=== PATIENT | female | born 1985 | race Caucasian/White ===

== ENCOUNTER 2022-09-24 09:00 | Observation (INO) | payer BC, SELFPAY ==
--- NOTE | 2022-09-24 | ECG_ITS ---
Test Reason : chest pain Blood Pressure : / mmHG Vent. Rate : 079 BPM Atrial Rate : 079 BPM P-R Int : 158 ms QRS Dur : 094 ms QT Int : 400 ms P-R-T Axes : 034 066 001 degrees QTc Int : 458 ms Normal sinus rhythm Nonspecific ST-T changes Abnormal ECG No previous ECGs available Referred By: Neville Kate Electronically Signed By:Marlon Brownlee
[2022-09-24 09:08] VITALS: BP 166/73; PULSE 92; RESP 20; TEMP 36.6; O2SAT 96; BMI 56.3
[2022-09-24 09:33] LABS: MANUAL DIFF FLAG NO
[2022-09-24 09:34] LABS: Basophils Absolute Auto 0.1 X10*3/uL (0.0-0.2); Basophils Percent Auto 0.7 % (0-2); Eosinophils Absolute Auto 0.2 X10*3/uL (0.0-0.4); Eosinophils Percent Auto 1.4 % (0-4); Hematocrit 41.3 % (37.0-47.0); Hemoglobin 13.6 g/dl (12.0-16.0); Imm Gran Abs Auto 0.08 X10*3/uL (0.00-0.03); Imm Gran Pct Auto 0.7 % (0.0-0.4); Lymphocytes Absolute Auto 1.4 X10*3/uL (1.2-4.9); Lymphocytes Percent Auto 12.2 % (20-40); Mean Corpuscular HGB Conc 32.9 g/dl (31.0-35.0); Mean Corpuscular Hemoglobin 28.8 pg (27.0-33.0); Mean Corpuscular Volume 87.5 fL (80.0-98.0); Mean Platelet Volume 10.9 fL (9.4-12.3); Monocytes Absolute Auto 0.9 X10*3/uL (0.1-1.2); Monocytes Percent Auto 7.7 % (2-11); Neutrophils Absolute Auto 8.9 x10*3/uL (2.0-8.3); Neutrophils Percent Auto 77.3 % (45-73); Platelet Count 233 X10*3/uL (160-400); Red Blood Count 4.72 X10*6/uL (4.20-5.50); Red Cell Distribution Width 13.4 % (11.0-16.0); White Blood Count 11.4 X10*3/uL (4.8-10.8)
--- NOTE | 2022-09-24 09:40 | ED_ITS ---
HPI - Nausea/Vomiting/Diarrhea General Chief complaint: Nausea/Vomiting/Diarrhea Stated complaint: Vomiting Time Seen by Provider: 09/24/22 09:16 Source: patient and family Mode of arrival: ambulatory Limitations: no limitations History of Present Illness HPI Narrative: 37-year-old female came in for evaluation of intractable vomiting. Intractable vomiting started 2 days ago, mild epigastric tenderness only with vomiting, no fever, chills, no diarrhea, vomit was described as bile with no blood, no bloody bowel movement. No dysuria, no frequency urination, no hematuria. Patient had a history of intractable vomiting seen by GI at [facility] had a normal gastric emptying test, patient also was treated for cholelithiasis with laparoscopic cholecystectomy 2 months ago at [facility]. Patient is still getting episode of vomiting for days, nothing trigger her symptoms nothing relief it either. Record was obtained from [facility] patient had a CT on 09/05/2022 of the abdomen and pelvis with no acute intra-abdominal pathology hepatic steatosis was noticed on the CT. Related Data Home Medications Medication Instructions Recorded Confirmed amlodipine 10 mg tablet 10 mg PO DAILY 09/24/22 09/24/22 escitalopram oxalate 10 mg tablet 15 mg PO BEDTIME 09/24/22 09/24/22 hydrochlorothiazide 50 mg tablet 50 mg PO DAILY 09/24/22 09/24/22 hydroxyzine HCl 25 mg tablet 25 mg PO BEDTIME 09/24/22 09/24/22 levothyroxine 150 mcg tablet 150 mcg PO DAILY@0600 09/24/22 09/24/22 lisinopril 40 mg tablet 40 mg PO DAILY 09/24/22 09/24/22 ondansetron 4 mg disintegrating 4 mg PO Q8H PRN nausea/vomiting 09/24/22 09/24/22 tablet pantoprazole 40 mg tablet,delayed 40 mg PO DAILY@0630 PRN Acid Reflux 09/24/22 09/24/22 release prochlorperazine 25 mg rectal 25 mg NV Q12H PRN Constipation 09/24/22 09/24/22 suppository (Compro) Allergies Allergy/AdvReac Type Severity Reaction Status Date / Time No Known Allergies Allergy Verified 09/24/22 09:16 Review of Systems Review of Systems: All other systems are reviewed and are negative Constitutional: Reports as per HPI and Reports no additional constitutional complaints Eyes: Reports as per HPI and Reports no additional eye complaints Reports system reviewed and no additional complaints, except as documented Cardiovascular: Reports as per HPI and Reports no additional cardiovascular complaints Respiratory: Reports as per HPI and Reports no additional respiratory complaints Gastrointestinal: Reports as per HPI and Reports no additional gastrointestinal complaints Genitourinary: Reports no additional female genitourinary complaints Musculoskeletal: Reports no additional musculoskeletal complaints Skin/Breast: Reports system reviewed and no additional complaints, except as docu Psychiatric: Reports no additional psychiatric complaints Endocrine: Reports no additional endocrine complaints Hematologic/Lymphatic: Reports no additional hematologic/lymphatic complaints Allergic/Immunologic: Reports no additional allergic/immunologic complaints Reports system reviewed and no additional complaints, except as documented and Reports Abnormal speech present [facility] Social History Social History Alcohol intake: current Alcohol intake frequency: holidays/special occasions only Smoked in Last 30 Days: No Use of substances other than those prescribed or required for medical reasons: No Advance Directives: No Advance Directives Information Provided: Yes Patient : No Physical Exam Vital Signs: Vital Signs: Last Vital Signs Temp 98.4 F 09/24/22 12:23 Pulse 95 09/24/22 12:23 Resp 12 09/24/22 12:23 BP 131/48 L 09/24/22 12:23 Pulse Ox 93 09/24/22 12:23 O2 Del Method Room Air 09/24/22 12:23 BMI result Body Mass Index 56.3 Vital signs have been reviewed as appeared to be correct. Blood pressure normal. Heart rate normal. Respiration rate normal. Temperature normal. Oxygen saturation normal. Appearance: Alert. Oriented X3. No acute distress. Head: Normal external exam. Normocephalic. Atraumatic. No Antunez signs noted. No raccoon eyes noted Eyes: PERRLA. EOMI. Conjunctiva and sclera normal. Eyelids normal. ENT: TM's Normal. Pharynx normal. Uvula midline. Moist mucous membranes. No trismus noted. No drooling noted. No muffled voice noted. Neck: Normal inspection. Neck supple. FROM. No adenopathy. Thyroid Normal. No meningeal signs. No neck mass noted. CVS: Normal heart rate and rhythm. Heart sound normal. No murmurs noted. Pulses normal throughout. Respiratory: No respiratory distress. Painless inspiration. Breath sounds normal. No wheezes/rales/rhonchi noted. Chest nontender. No accessory muscle usage noted or decreased air movement noted. Abdomen: Soft, mild epigastric tenderness, no guarding, no rebound tenderness.. Bowel sounds normal in all 4 quadrants. No distention noted. No organomegaly noted. No visible injury noted. Back: No CVA tenderness. Full range of motion noted. Skin: Skin warm and dry. Normal skin color. Normal skin turgor. No rashes/lesions/lacerations noted. Extremities: No lower extremity edema. Extremities exhibit normal range of motion. Extremities nontender. Neuro: Oriented X 3. Cranial nerve exam: II-XII are grossly intact No motor deficit. No sensory deficit. Reflexes normal. Course Course Course Narrative: Intractable vomiting, no history of marijuana use, questionable carlos cyclic vomiting syndrome, patient had a prior GI workup for her symptoms with no clear etiology of her symptoms. Patient is still vomiting will admit for further control of her symptoms. Medications Administered Discontinued Medications Generic Name Dose Route Start Last Admin Trade Name Bernardq PRN Reason Stop Dose Admin Al Hydroxide/Mg Hydroxide 30 ml 09/24/22 09:39 09/24/22 10:05 Magnesium Hydrox/Alum Hydrox 30 Ml Oral.Susp PO 09/24/22 09:40 30 ml ONCE ONE Administration Famotidine 20 mg 09/24/22 09:39 09/24/22 10:05 Famotidine/Pf 20 Mg/2 Ml Vial IVPUSH 09/24/22 09:40 20 mg ONCE ONE Administration Sodium Chloride 1,000 mls @ 999 mls/hr 09/24/22 09:40 09/24/22 11:02 Ns IV 09/24/22 10:40 Infused .Q1H1M ONE Infusion Lorazepam 1 mg 09/24/22 09:39 09/24/22 10:05 Lorazepam 2 Mg/Ml Vial IVPUSH 09/24/22 09:40 1 mg ONCE ONE Administration Lorazepam 2 mg 09/24/22 11:54 09/24/22 12:07 Lorazepam 2 Mg/Ml Vial IVPUSH 09/24/22 11:55 2 mg ONCE ONE Administration Metoclopramide HCl 10 mg 09/24/22 10:20 09/24/22 11:02 Metoclopramide Hcl 10 Mg/2 Ml Vial IVPUSH 09/24/22 10:21 10 mg ONCE ONE Administration Ondansetron HCl 4 mg 09/24/22 09:39 09/24/22 10:05 Ondansetron Hcl 4 Mg/2 Ml Vial IVPUSH 09/24/22 09:40 4 mg ONCE ONE Administration Ondansetron HCl 4 mg 09/24/22 11:30 09/24/22 12:07 Ondansetron Hcl 4 Mg/2 Ml Vial IVPUSH 09/24/22 11:31 4 mg ONCE ONE Administration Medical Decision Making Differential Diagnosis Differential Diagnoses: The differential diagnosis associated with the presentation includes (Cyclic vomiting syndrome, gastritis, dehydration, electrolyte abnormality, severe anemia, UTI, .) Admission/Observation Consideration of admission/observation: Escalation of care including admission/observation considered Consult Healthcare Provider Management of the patient was discussed with: Hospitalist (Dr. Richardson) Lab Data MDM Lab Attestation statement: I reviewed the patient's lab results. 09/24/22 09:30 09/24/22 09:30 Labs: Lab Results 09/24/22 09/24/22 09/24/22 Range/Units 09:30 09:30 10:07 WBC 11.4 H (4.8-10.8) X10*3/uL RBC 4.72 (4.20-5.50) X10*6/uL Hgb 13.6 (12.0-16.0) g/dl Hct 41.3 (37.0-47.0) % MCV 87.5 (80.0-98.0) fL MCH 28.8 (27.0-33.0) pg MCHC 32.9 (31.0-35.0) g/dl RDW 13.4 (11.0-16.0) % Plt Count 233 (160-400) X10*3/uL MPV 10.9 (9.4-12.3) fL Immature Gran % (Auto) 0.7 H (0.0-0.4) % Neut % (Auto) 77.3 H (45-73) % Lymph % (Auto) 12.2 L (20-40) % [place] % (Auto) 7.7 (2-11) % Eos % (Auto) 1.4 (0-4) % Baso % (Auto) 0.7 (0-2) % Lymph # (Auto) 1.4 (1.2-4.9) X10*3/uL [place] # (Auto) 0.9 (0.1-1.2) X10*3/uL Eos # (Auto) 0.2 (0.0-0.4) X10*3/uL Baso # (Auto) 0.1 (0.0-0.2) X10*3/uL Abs Immat Gran (auto) 0.08 H (0.00-0.03) X10*3/uL Absolute Neuts (auto) 8.9 H (2.0-8.3) x10*3/uL Absolute Nucleated RBC 0.000 (0.0-0.012) X10*3/uL Nucleated RBC % (auto) 0.0 (0.0-0.2) /100WBC Sodium 136 (135-145) mmol/L Potassium 3.7 (3.3-5.1) mmol/L Chloride 100 (96-108) mmol/L Carbon Dioxide 25 (22-29) mmol/L Anion Gap 15 (12-20) BUN 10 (9-16) mg/dL Creatinine 0.83 (0.5-1.4) mg/dL Estim Creat Clear Calc 151.5 Estimated GFR > 60 Random Glucose 128 H (60-115) mg/dL Calcium 10.2 (8.4-10.2) mg/dL Total Bilirubin 0.6 (0.0-1.0) mg/dL AST 130 H (5-31) U/L ALT 207 H (0-31) U/L Alkaline Phosphatase 104 (39-117) U/L Total Protein 8.4 H (6.5-8.0) g/dL Albumin 4.6 (3.5-5.0) g/dL Lipase 8 (8-78) U/L Urine Color Dark Yellow Urine Appearance Clear Urine pH 7.0 (5.0-9.0) Ur Specific [place] 1.025 (1.005-1.025) Urine Protein 30 (1+) H (Neg-Trace) mg/dL Urine Glucose (UA) Negative (Negative) mg/dL Urine Ketones Trace (Negative) mg/dL Urine Blood Negative (Negative) Urine Nitrite Negative (Negative) Ur Leukocyte Esterase Negative (Negative) Urine RBC 3-5 H (0-2) /HPF Urine WBC 0-5 (0-5) /HPF Ur Squamous Epith Cells 6-10 (0-2) /HPF Urine Bacteria Trace (None Seen) Hyaline Casts 0-2 (0-2) /LPF Urine Test (NEGATIVE) 09/24/22 Range/Units 10:07 WBC (4.8-10.8) X10*3/uL RBC (4.20-5.50) X10*6/uL Hgb (12.0-16.0) g/dl Hct (37.0-47.0) % MCV (80.0-98.0) fL MCH (27.0-33.0) pg MCHC (31.0-35.0) g/dl RDW (11.0-16.0) % Plt Count (160-400) X10*3/uL MPV (9.4-12.3) fL Immature Gran % (Auto) (0.0-0.4) % Neut % (Auto) (45-73) % Lymph % (Auto) (20-40) % [place] % (Auto) (2-11) % Eos % (Auto) (0-4) % Baso % (Auto) (0-2) % Lymph # (Auto) (1.2-4.9) X10*3/uL [place] # (Auto) (0.1-1.2) X10*3/uL Eos # (Auto) (0.0-0.4) X10*3/uL Baso # (Auto) (0.0-0.2) X10*3/uL Abs Immat Gran (auto) (0.00-0.03) X10*3/uL Absolute Neuts (auto) (2.0-8.3) x10*3/uL Absolute Nucleated RBC (0.0-0.012) X10*3/uL Nucleated RBC % (auto) (0.0-0.2) /100WBC Sodium (135-145) mmol/L Potassium (3.3-5.1) mmol/L Chloride (96-108) mmol/L Carbon Dioxide (22-29) mmol/L Anion Gap (12-20) BUN (9-16) mg/dL Creatinine (0.5-1.4) mg/dL Estim Creat Clear Calc Estimated GFR Random Glucose (60-115) mg/dL Calcium (8.4-10.2) mg/dL Total Bilirubin (0.0-1.0) mg/dL AST (5-31) U/L ALT (0-31) U/L Alkaline Phosphatase (39-117) U/L Total Protein (6.5-8.0) g/dL Albumin (3.5-5.0) g/dL Lipase (8-78) U/L Urine Color Urine Appearance Urine pH (5.0-9.0) Ur Specific [place] (1.005-1.025) Urine Protein (Neg-Trace) mg/dL Urine Glucose (UA) (Negative) mg/dL Urine Ketones (Negative) mg/dL Urine Blood (Negative) Urine Nitrite (Negative) Ur Leukocyte Esterase (Negative) Urine RBC (0-2) /HPF Urine WBC (0-5) /HPF Ur Squamous Epith Cells (0-2) /HPF Urine Bacteria (None Seen) Hyaline Casts (0-2) /LPF Urine Test NEGATIVE (NEGATIVE) Discharge Plan Discharge Clinical Impression: Intractable vomiting Patient Disposition: Home, Self-Care Prescriptions: No Action hydrochlorothiazide 50 mg tablet 50 mg PO DAILY prochlorperazine [Compro] 25 mg suppository 25 mg NV Q12H PRN (Reason: Constipation) amlodipine 10 mg tablet 10 mg PO DAILY pantoprazole 40 mg tablet,delayed release (DR/EC) 40 mg PO DAILY@0630 PRN (Reason: Acid Reflux) levothyroxine 150 mcg tablet 150 mcg PO DAILY@0600 hydroxyzine HCl 25 mg tablet 25 mg PO BEDTIME lisinopril 40 mg tablet 40 mg PO DAILY ondansetron 4 mg tablet,disintegrating 4 mg PO Q8H PRN (Reason: nausea/vomiting) escitalopram oxalate 10 mg tablet 15 mg PO BEDTIME
[2022-09-24 09:51] LABS: Alanine Aminotransferase 207 U/L (0-31); Albumin Level 4.6 g/dL (3.5-5.0); Alkaline Phosphatase 104 U/L (39-117); Anion Gap 15 (12-20); Aspartate Amino Transferase 130 U/L (5-31); Bilirubin Total 0.6 mg/dL (0.0-1.0); Blood Urea Nitrogen 10 mg/dL (9-16); Calcium 10.2 mg/dL (8.4-10.2); Carbon Dioxide 25 mmol/L (22-29); Chloride 100 mmol/L (96-108); Creatinine Clr Calc Pharmacy 151.5; Estimated Glomerular Filt Rate > 60; Glucose Random 128 mg/dL (60-115); Lipase 8 U/L (8-78); Potassium 3.7 mmol/L (3.3-5.1); Sodium 136 mmol/L (135-145); Total Protein 8.4 g/dL (6.5-8.0)
[2022-09-24] MEDS: 0.9 % Sodium Chloride 1,000 ML 999 ML IV (10:00)
[2022-09-24] MEDS: ondansetron HCL 4 MG/2 ML VIAL IVPUSH ×3 (10:05→17:12)
[2022-09-24] MEDS: Famotidine/PF 20 MG/2 ML VIAL IVPUSH (10:05)
[2022-09-24] MEDS: Magnesium Hydrox/Alum Hydrox 30 ML ORAL.SUSP PO (10:05)
[2022-09-24] MEDS: LORazepam 2 MG/ML VIAL 1 MG IVPUSH (10:05)
[2022-09-24 10:18] LABS: Appearance Urine Clear; Color Urine Dark Yellow; Glucose Urine UA Negative (Negative); Leukocyte Esterase Urine Negative (Negative); Nitrite Urine Negative (Negative); Specific Gravity - Urine 1.025 (1.005-1.025); UMIC TRIGGER UACC YES; Urine Blood Negative (Negative); Urine Ketones Trace mg/dL (Negative); Urine Protein 30 (1+) mg/dL (Neg-Trace)
[2022-09-24 10:20] LABS: Bacteria Urine Trace (None Seen); Hyaline Casts Urine 0-2 /LPF (0-2); WBC Urine 0-5 /HPF (0-5)
[2022-09-24 10:56] LABS: UPreg QC Valid YES; Urine Pregnancy NEGATIVE (NEGATIVE)
[2022-09-24] MEDS: Metoclopramide HCl 10 MG/2 ML VIAL IVPUSH (11:02)
[2022-09-24] MEDS: LORazepam 2 MG/ML VIAL IVPUSH (12:07)
[2022-09-24 12:23] VITALS: BP 131/48; PULSE 95; RESP 12; TEMP 36.9; O2SAT 93
--- NOTE | 2022-09-24 12:53 | PHA.MEDREC ---
Pharmacy Consult ? Medication Reconciliation Pharmacy has completed the medication reconciliation. Spoke to patient to confirm meds.
--- NOTE | 2022-09-24 14:01 | PM.IMHP ---
History of Present Illness Date of Service: 09/24/22 Attending physician on admission: Pilar Borges Chief Complaint: n/v 37-year-old female with history of hypothyroidism, hypertension, anxiety, ovarian cyst who is morbidly obese with BMI greater than 56 presents to the ED earlier this morning for evaluation of intractable nausea and vomiting ongoing for 2 days. She states that she has had these symptoms intermittently ongoing for the last 6 months. She has had multiple hospitalizations and ultimately underwent cholecystectomy given presence of gallstones though her symptoms continue to recur following the procedure. She denies any known triggers and has been keeping a food diary. Describes vomit as bilious and she is unable to tolerate p.o. when symptoms are active. She was admitted at [facility] last month where she underwent HIDA scan, endoscopy, and gastric emptying study all of which were unremarkable. She also had CT of the abdomen/pelvis which was negative for any acute intra abdominal abnormality but did show hepatic steatosis. 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 Desouza and symptoms remain with unclear etiology. In the ED, vital stable. She is afebrile. There is a mild leukocytosis of 11.4. Renal function and electrolyte levels normal. Total bilirubin 0.6, AST 130, ALT 207, alk phos 104. She does not use any illicit substances and does not use any marijuana containing products. She does not drink alcohol and does not smoke cigarettes. While in the ED, received a total of 3 mg lorazepam, Reglan, and ondansetron x2. She also received Maalox and 1 L IV NS. Unfortunately, symptoms persisted patient will be admitted under observation. Review of Systems Review of Systems: General: No fevers, malaise, unintentional weight loss HEENT: No blurred vision, diplopia. No sore throat, nasal congestion, rhinorrhea, sinus pain, ear pain Cardiovascular: No chest pain, palpitations, or leg edema Respiratory: No shortness of breath, wheezing, cough GI: +epigastric pain, n/v. No diarrhea, constipation, melena, hematochezia : No dysuria, hematuria, increased urinary frequency, decreased urinary output MSK: No myalgia, back pain Neuro: No headaches, weakness, paresthesias Skin: No rashes or lesions PMFSH Medical History Anxiety GERD (gastroesophageal reflux disease) Hepatic steatosis Hypertension Hypothyroidism Morbid obesity Ovarian cyst Social History Alcohol intake: current Alcohol intake frequency: holidays/special occasions only Patient Tobacco Use Status: Never used Tobacco service: No Meds Allergies Allergy/AdvReac Type Severity Reaction Status Date / Time No Known Allergies Allergy Verified 09/24/22 09:16 Active Medications: Current Medications Acetaminophen (Acetaminophen 325 Mg Tablet) 650 mg PO Q6H PRN PRN Reason: Pain, Mild (Pain Scale 1-3) Al Hydroxide/Mg Hydroxide (Magnesium Hydrox/Alum Hydrox 30 Ml Oral.Susp) 30 ml PO Q4H PRN PRN Reason: Heartburn/Nausea Docusate Sodium (Docusate Sodium 100 Mg Capsule) 100 mg PO DAILY PRN PRN Reason: Constipation Enoxaparin Sodium (Enoxaparin Sodium 40 Mg/0.4 Ml Syringe) 40 mg SUBCUT Q24H BRANDI Lactated Ringer's (Lr) 1,000 mls @ 100 mls/hr IVCONT .Q10H BRANDI Ondansetron HCl (Ondansetron Hcl 4 Mg/2 Ml Vial) 4 mg IVPUSH Q8H PRN PRN Reason: Nausea and Vomiting Pharmacy Consult (Consult Rx Perform Med Rec) 1 each MISCELLANE ONCE PRN PRN Reason: Consult order Sodium Chloride (0.9 % Sodium Chloride Flush 3 Ml Syringe) 3 ml IVFLUSH QSHIFT BRANDI Home Medications Medication Instructions Recorded Confirmed Last Taken Type amlodipine 10 mg tablet 10 mg PO DAILY 09/24/22 09/24/22 09/23/22 History escitalopram oxalate 10 mg tablet 15 mg PO BEDTIME 09/24/22 09/24/22 09/23/22 History hydrochlorothiazide 50 mg tablet 50 mg PO DAILY 09/24/22 09/24/22 09/23/22 History hydroxyzine HCl 25 mg tablet 25 mg PO BEDTIME 09/24/22 09/24/22 09/23/22 History levothyroxine 150 mcg tablet 150 mcg PO DAILY@0600 09/24/22 09/24/22 09/24/22 History lisinopril 40 mg tablet 40 mg PO DAILY 09/24/22 09/24/22 09/23/22 History ondansetron 4 mg disintegrating 4 mg PO Q8H PRN nausea/vomiting 09/24/22 09/24/22 Unknown History tablet pantoprazole 40 mg tablet,delayed 40 mg PO DAILY@0630 PRN Acid Reflux 09/24/22 09/24/22 Unknown History release prochlorperazine 25 mg rectal 25 mg ME Q12H PRN Constipation 09/24/22 09/24/22 Unknown History suppository (Compro) Physical Exam Vital Signs and Narrative: Vital Signs: Last Vital Signs Temp 98.4 F 09/24/22 12:23 Pulse 95 09/24/22 12:23 Resp 12 09/24/22 12:23 BP 131/48 L 09/24/22 12:23 Pulse Ox 93 09/24/22 12:23 O2 Del Method Room Air 09/24/22 12:23 BMI result Body Mass Index 56.3 Constitutional - Awake and Alert, No apparent distress Eyes - PERRLA, EOMI Cardiovascular - S1S2, RRR, No edema Respiratory - Normal lung expansion, Normal respiratory effort, No respiratory distress, CTA bilaterally Gastrointestinal - obese abdomen, mild epigastric tenderness to palpation. ND; +BS; No rebound or guarding Extremities - no calf tenderness bilaterally, no swelling Skin - Warm/Dry Neurological - Alert & oriented x3 Psychological - Appropriate affect Results Labs 09/24/22 09:30 09/24/22 09:30 Labs: Laboratory Results - last 24 hr 09/24/22 09/24/22 09/24/22 09:30 09:30 10:07 MCV 87.5 MCH 28.8 MCHC 32.9 RDW 13.4 Plt Count 233 MPV 10.9 Immature Gran % (Auto) 0.7 H Neut % (Auto) 77.3 H Lymph % (Auto) 12.2 L [place] % (Auto) 7.7 Eos % (Auto) 1.4 Baso % (Auto) 0.7 Lymph # (Auto) 1.4 [place] # (Auto) 0.9 Eos # (Auto) 0.2 Baso # (Auto) 0.1 Abs Immat Gran (auto) 0.08 H Absolute Neuts (auto) 8.9 H Absolute Nucleated RBC 0.000 Nucleated RBC % (auto) 0.0 Anion Gap 15 Estim Creat Clear Calc 151.5 Estimated GFR > 60 Random Glucose 128 H Calcium 10.2 Total Bilirubin 0.6 AST 130 H ALT 207 H Alkaline Phosphatase 104 Total Protein 8.4 H Albumin 4.6 Lipase 8 Urine Color Dark Yellow Urine Appearance Clear Urine pH 7.0 Ur Specific [place] 1.025 Urine Protein 30 (1+) H Urine Glucose (UA) Negative Urine Ketones Trace Urine Blood Negative Urine Nitrite Negative Ur Leukocyte Esterase Negative Urine RBC 3-5 H Urine WBC 0-5 Ur Squamous Epith Cells 6-10 Urine Bacteria Trace Hyaline Casts 0-2 Urine Test 09/24/22 10:07 MCV MCH MCHC RDW Plt Count MPV Immature Gran % (Auto) Neut % (Auto) Lymph % (Auto) [place] % (Auto) Eos % (Auto) Baso % (Auto) Lymph # (Auto) [place] # (Auto) Eos # (Auto) Baso # (Auto) Abs Immat Gran (auto) Absolute Neuts (auto) Absolute Nucleated RBC Nucleated RBC % (auto) Anion Gap Estim Creat Clear Calc Estimated GFR Random Glucose Calcium Total Bilirubin AST ALT Alkaline Phosphatase Total Protein Albumin Lipase Urine Color Urine Appearance Urine pH Ur Specific [place] Urine Protein Urine Glucose (UA) Urine Ketones Urine Blood Urine Nitrite Ur Leukocyte Esterase Urine RBC Urine WBC Ur Squamous Epith Cells Urine Bacteria Hyaline Casts Urine Test NEGATIVE Assessment and Plan (1) Intractable vomiting: Status: Acute (2) Transaminitis: Status: Acute Plan 37-year-old female with history of hypothyroidism, hypertension, anxiety, ovarian cyst who is morbidly obese with BMI greater than 56 to be observed for intractable nausea and vomiting unable to tolerate PO. #Acute intractable nausea and vomiting -Intolerance of PO -had had recurrent symptoms every few weeks x 6 months -Recent HIDA scan, CT abd/pelvis, endoscopy at [facility] unremarkable. -GI consult -Ondansetron, maalox prn for n/v. Adjust antiemetics as needed -NPO for now, advance diet as tolerated -IVF with LR for now -Renal function and lytes normal, follow bmp # acute leukocytosis -likely reactive secondary to above # transaminitis -likely reactive due to nausea and vomiting as well as chronic related to hepatic steatosis -follow liver function # hypertension -reasonably controlled -continue home antihypertensives # hypothyroidism -continue Synthroid # mood disorder -continue home meds # morbid obesity due to excess calories with BMI greater than 56 -weight loss efforts encouraged DVT prophylaxis-Lovenox Full code Time Spent With Patient Time: Total time managing care of this patient today ____ minutes. Quality Stroke Does the patient have a stroke diagnosis?: No VTE Prior VTE?: No VTE Risk Level:: Medical - moderate - high VTE Device Contraindication: Treatment Not Indicated VTE Drug Contraindication: N/A - Med Ordered
[2022-09-24] MEDS: Lactated Ringers 1,000 ML 100 ML IVCONT ×2 (14:23→21:12)
[2022-09-24] MEDS: Enoxaparin Sodium 40 MG/0.4 ML SYRINGE SUBCUT (14:26)
[2022-09-24 14:50] VITALS: BP 149/67; PULSE 101; RESP 12; TEMP 37.1; O2SAT 94
--- NOTE | 2022-09-24 15:45 | PC.NURSE ---
received nurse to nurse report from RAE Altamirano. pt brought to overflow bed 6
[2022-09-24 15:52] VITALS: BP 157/65; PULSE 98; RESP 20; TEMP 37.6; O2SAT 95
--- NOTE | 2022-09-24 15:54 | MHC.EDTECH ---
Provided ice packs for pt. Provided emesis bag. Pt vomiting.
--- NOTE | 2022-09-24 15:57 | P.CNGI_ITS ---
History of Present Illness Data of Consult Service Date: 09/24/22 Requesting physician: Bindu Alvarez Primary Care Provider: Teresa Alvarez MD [facility] Reason for consult: Abd pain, N,V This is a 37-year-old female past medical history of hypothyroidism, hypertension, anxiety, morbid obesity, who presents to the hospital for nausea and vomiting ongoing for 2 days. Patient reports that since March of this year, she has had multiple episodes of sudden onset nausea and vomiting that last anywhere from 8 hours to a few days. Emesis is not bloody. Outside of these episodes, does not report any changes in appetite or unintentional weight loss. She is in fact at her baseline in between these episodes. No history of migraines accompanying this episode. No family history of migraines either. Does not report any vertigo, tinnitus or lightheadedness with this. Patient does not report marijuana use or tobacco use. No alcohol use. Most recent episode in August was around the same time as her period, but previous episodes in the last 6 months have not always correlated with her menstrual cycle. She has had extensive workup done at [facility] including upper endoscopy, multiple CT scans, HIDA scan, gastric emptying study, all of which have been unremarkable. She also underwent laparoscopic cholecystectomy for possible biliary colic in June. However, continues to have episodes and was admitted in [facility] again in August for this. Only new medication is Lexapro that was started in February of this year. No recent travel. No sick contacts. Review of Systems Review of Systems: Yes all other systems are reviewed and are negative [facility] Past Medical History Medical History (Updated 09/24/22 @ 16:32 by Judi Santillan MD) Anxiety GERD (gastroesophageal reflux disease) Hepatic steatosis Hypertension Hypothyroidism Morbid obesity Ovarian cyst Social History Social History Alcohol intake: current Alcohol intake frequency: holidays/special occasions only Patient Tobacco Use Status: Never used Tobacco Smoked in Last 30 Days: No Use of substances other than those prescribed or required for medical reasons: No Advance Directives: No Advance Directives Information Provided: Yes Nutrition Risks: No Nutritional Risk Patient : No Meds Allergies Allergy/AdvReac Type Severity Reaction Status Date / Time No Known Allergies Allergy Verified 09/24/22 09:16 Active Medications: Current Medications Acetaminophen (Acetaminophen 325 Mg Tablet) 650 mg PO Q6H PRN PRN Reason: Pain, Mild (Pain Scale 1-3) Al Hydroxide/Mg Hydroxide (Magnesium Hydrox/Alum Hydrox 30 Ml Oral.Susp) 30 ml PO Q4H PRN PRN Reason: Heartburn/Nausea Amlodipine Besylate (Amlodipine Besylate 10 Mg Tablet) 10 mg PO DAILY [facility]; Protocol Docusate Sodium (Docusate Sodium 100 Mg Capsule) 100 mg PO DAILY PRN PRN Reason: Constipation Enoxaparin Sodium (Enoxaparin Sodium 40 Mg/0.4 Ml Syringe) 40 mg SUBCUT Q24H [facility] Last Admin: 09/24/22 14:26 Dose: 40 mg Escitalopram Oxalate (Escitalopram Oxalate 5 Mg Tablet) 15 mg PO BEDTIME BRANDI Hydrochlorothiazide (Hydrochlorothiazide 50 Mg Tablet) 50 mg PO DAILY [facility]; Protocol Hydroxyzine HCl (Hydroxyzine Hcl 25 Mg Tablet) 25 mg PO BEDTIME [facility] Lactated Ringer's (Lr) 1,000 mls @ 100 mls/hr IVCONT .Q10H [facility] Last Admin: 09/24/22 14:23 Dose: 100 mls/hr Levothyroxine Sodium (Levothyroxine Sodium 150 Mcg Tablet) 150 mcg PO DAILY@0600 [facility] Lisinopril (Lisinopril 40 Mg Tablet) 40 mg PO DAILY [facility]; Protocol Omeprazole (Omeprazole 20 Mg Capsule.Dr) 20 mg PO DAILY@0630 [facility] Ondansetron HCl (Ondansetron Hcl 4 Mg/2 Ml Vial) 4 mg IVPUSH Q8H PRN PRN Reason: Nausea and Vomiting Pharmacy Consult (Consult Rx Perform Med Rec) 1 each MISCELLANE ONCE PRN PRN Reason: Consult order Prochlorperazine (Prochlorperazine 25 Mg Supp.Rect) 25 mg [place] Q12H PRN PRN Reason: Constipation Sodium Chloride (0.9 % Sodium Chloride Flush 3 Ml Syringe) 3 ml IVFLUSH QSHIFT [facility] Last Admin: 09/24/22 15:38 Dose: Not Given Home Medications Medication Instructions Recorded Confirmed Last Taken Type amlodipine 10 mg tablet 10 mg PO DAILY 09/24/22 09/24/22 09/23/22 History escitalopram oxalate 10 mg tablet 15 mg PO BEDTIME 09/24/22 09/24/22 09/23/22 History hydrochlorothiazide 50 mg tablet 50 mg PO DAILY 09/24/22 09/24/22 09/23/22 History hydroxyzine HCl 25 mg tablet 25 mg PO BEDTIME 09/24/22 09/24/22 09/23/22 History levothyroxine 150 mcg tablet 150 mcg PO DAILY@0600 09/24/22 09/24/22 09/24/22 History lisinopril 40 mg tablet 40 mg PO DAILY 09/24/22 09/24/22 09/23/22 History ondansetron 4 mg disintegrating 4 mg PO Q8H PRN nausea/vomiting 09/24/22 09/24/22 Unknown History tablet pantoprazole 40 mg tablet,delayed 40 mg PO DAILY@0630 PRN Acid Reflux 09/24/22 09/24/22 Unknown History release prochlorperazine 25 mg rectal 25 mg [place] Q12H PRN Constipation 09/24/22 09/24/22 Unknown History suppository (Compro) Physical Exam Vital Signs: Vital Signs: Last Vital Signs Temp 99.7 F 09/24/22 15:52 Pulse 98 09/24/22 15:52 Resp 20 09/24/22 15:52 BP 157/65 H 09/24/22 15:52 Pulse Ox 95 09/24/22 15:52 O2 Del Method Room Air 09/24/22 15:52 BMI result Body Mass Index 56.3 Gen appear: NAD with obesity HEENT: nonicteric, no cervical lymphadenopathy Chest: CTA CVS: Regular S1/S2 Abd: soft,mild tenderness, nondistended, bowel sounds + Ext: no peripheral edema Neuro: A/Ox3, noted to move all extremities spontaneously Psych: interacting appropriately Results Labs 09/24/22 09:30 09/24/22 09:30 Labs: Short CBC 09/24/22 Range/Units 09:30 WBC 11.4 H (4.8-10.8) X10*3/uL Hgb 13.6 (12.0-16.0) g/dl Hct 41.3 (37.0-47.0) % Plt Count 233 (160-400) X10*3/uL BMP 09/24/22 09:30 Sodium 136 Potassium 3.7 Chloride 100 Carbon Dioxide 25 BUN 10 Creatinine 0.83 Calcium 10.2 Liver Function 09/24/22 Range/Units 09:30 Total Bilirubin 0.6 (0.0-1.0) mg/dL AST 130 H (5-31) U/L ALT 207 H (0-31) U/L Alkaline Phosphatase 104 (39-117) U/L Albumin 4.6 (3.5-5.0) g/dL Urine 09/24/22 Range/Units 10:07 Urine Color Dark Yellow Urine Appearance Clear Urine pH 7.0 (5.0-9.0) Ur Specific [place] 1.025 (1.005-1.025) Urine Protein 30 (1+) H (Neg-Trace) mg/dL Urine Glucose (UA) Negative (Negative) mg/dL Assessment and Plan (1) Intractable vomiting: Status: Acute (2) Cyclical vomiting syndrome not associated with migraine: Status: Acute Plan Appears to be consistent with cyclical vomiting syndrome based on her history, absence of red flags, and normal remaining workup. Drug related side effect from Lexapro also considered though less likely. Central N/V seems less likely in the absence of any neuro sx such as headache, vision changes, tinnitus etc. GI related work up thus far neg for PUD, GERD, esophagitis, IBD, celiac, gastroparesis. recommendations: - Cont supportive care with IVF and antiemetics - Can give x1 dose of benadryl if N/V not adequately controlled with Zofran - Given at least 4 epidodes in the last 6 months would recommend trial of nortryptiline 10mg x 4 weeks and then increase to 20mg for prophyalxis - Will need to be tapered off lexapro to avoid drug interaction Thank you for the opportunity to participate in her care. Please do not hesitate to reach out for any questions or concerns. Time Spent With Patient Time: Total time managing care of this patient today ____ minutes. Procedures Date of Service Date of Service: 09/24/22
[2022-09-24] MEDS: Acetaminophen 325 MG TABLET 650 MG PO (17:11)
--- NOTE | 2022-09-24 17:57 | PC.NURSE ---
pt sts nauseous and has spins . pt medicated and fluids running per apr. pt resting quietly in hospital bed. call sweeney within reach. pt needs met
--- NOTE | 2022-09-24 18:38 | PC.NURSE ---
pt sleeping comfortably in hospital bed. fluids running per apr. rr even/unlabored. wctm
--- NOTE | 2022-09-24 20:02 | PC.NURSE ---
Patient is alert and oriented x4, reports headache, received tylenol previously and reporting it did not relieve headache. Also complaining of nausea, reports vomited bile around 1600 last, not due for zofran at this time. Also requesting to take melatonin for bedtime instead of scheduled atarax, reports it works better. Notified Dr. Calabrese.
--- NOTE | 2022-09-24 20:07 | PC.NURSE ---
Addendum entered by Nohelia Joe RN 09/24/22 20:48: Patient transported to room 469 with pt's belongings at this time. Original Note: Patient being admitted to [facility] tele Room 469, report given to floor nurse.
[2022-09-24] MEDS: Prochlorperazine Edisylate 10 MG/2 ML VIAL 5 MG IVPUSH (20:27)
[2022-09-24] MEDS: Melatonin 3 MG TABLET 6 MG PO (20:29)
[2022-09-24] MEDS: Escitalopram Oxalate 10 MG TABLET PO (20:29)
[2022-09-24 20:56] VITALS: BMI 56.4
[2022-09-24 21:00] VITALS: BP 119/63; PULSE 98; RESP 16; TEMP 36.8; O2SAT 91
[2022-09-24] MEDS: Butalb/Acetamin/Caff 50/325/40 TABLET 1 TAB PO (21:11)
[2022-09-24] MEDS: 0.9 % Sodium Chloride Flush 3 ML SYRINGE IVFLUSH (21:12)
[2022-09-25 04:00] VITALS: BP 109/54; PULSE 73; RESP 18; TEMP 36.6; O2SAT 94
[2022-09-25] MEDS: Levothyroxine Sodium 150 MCG TABLET PO (06:25)
[2022-09-25] MEDS: Omeprazole 20 MG CAPSULE.DR PO (06:25)
[2022-09-25 06:31] VITALS: BP 118/60; PULSE 82; RESP 16; TEMP 36.7; O2SAT 94
[2022-09-25] MEDS: Lactated Ringers 1,000 ML 100 ML IVCONT (06:34)
[2022-09-25 07:29] LABS: MANUAL DIFF FLAG NO
[2022-09-25 07:35] LABS: Basophils Absolute Auto 0.1 X10*3/uL (0.0-0.2); Basophils Percent Auto 0.6 % (0-2); Eosinophils Absolute Auto 0.2 X10*3/uL (0.0-0.4); Eosinophils Percent Auto 2.2 % (0-4); Hematocrit 33.6 % (37.0-47.0); Hemoglobin 11.1 g/dl (12.0-16.0); Imm Gran Abs Auto 0.06 X10*3/uL (0.00-0.03); Imm Gran Pct Auto 0.5 % (0.0-0.4); Lymphocytes Absolute Auto 2.5 X10*3/uL (1.2-4.9); Lymphocytes Percent Auto 22.3 % (20-40); Mean Corpuscular Hemoglobin 28.9 pg (27.0-33.0); Mean Corpuscular Volume 87.5 fL (80.0-98.0); Mean Platelet Volume 10.4 fL (9.4-12.3); Monocytes Absolute Auto 1.2 X10*3/uL (0.1-1.2); Monocytes Percent Auto 10.4 % (2-11); Platelet Count 203 X10*3/uL (160-400); Red Blood Count 3.84 X10*6/uL (4.20-5.50); Red Cell Distribution Width 13.3 % (11.0-16.0)
[2022-09-25] MEDS: amLODIPine Besylate 10 MG TABLET PO (08:55)
[2022-09-25] MEDS: lisinopriL 40 MG TABLET PO (08:55)
--- NOTE | 2022-09-25 09:03 | MHC.CM.PN ---
CM met with Patient at bedside and addressed ACUNA with her, providing Patient with the original and placing a copy on the chart. Patient lives in a house with her /HCP and Mother and she required no services nor DME TEARER. Home/self care is the goal and CM has initiated and will follow for dc planning. PCP/is Dr. Teresa Alvarez.
[2022-09-25 11:07] VITALS: BP 134/71; PULSE 76; RESP 18; TEMP 36.9; O2SAT 97
[2022-09-25] MEDS: 0.9 % Sodium Chloride Flush 3 ML SYRINGE IVFLUSH (11:44)
[2022-09-25] MEDS: hydroCHLOROthiazide 25 MG TABLET 50 MG PO (11:44)
[2022-09-25] MEDS: Prochlorperazine Edisylate 10 MG/2 ML VIAL 5 MG IVPUSH (11:51)
[2022-09-25 13:06] LABS: Alanine Aminotransferase 190 U/L (0-31); Albumin Level 3.7 g/dL (3.5-5.0); Alkaline Phosphatase 79 U/L (39-117); Anion Gap 12 (12-20); Aspartate Amino Transferase 109 U/L (5-31); Bilirubin Direct 0.2 mg/dL (0.0-0.5); Bilirubin Total 0.5 mg/dL (0.0-1.0); Blood Urea Nitrogen 9 mg/dL (9-16); Calcium 9.3 mg/dL (8.4-10.2); Carbon Dioxide 26 mmol/L (22-29); Chloride 104 mmol/L (96-108); Creatinine Clr Calc Pharmacy 132.6; Estimated Glomerular Filt Rate > 60; Glucose Random 116 mg/dL (60-115); Potassium 3.5 mmol/L (3.3-5.1); Sodium 138 mmol/L (135-145)
[2022-09-25 13:20] LABS: Thyroid Stimulating Hormone 1.94 uIU/mL (0.32-4.0)
[2022-09-25 15:03] VITALS: BP 108/56; PULSE 71; RESP 20; O2SAT 96
--- NOTE | 2022-09-25 15:08 | P.PNIM_ITS ---
Subjective Subjective Date of Service: 09/25/22 Interval History: Being followed for nausea and vomiting this morning patient was feeling better but after breakfast patient developed nausea and vomiting again, unable to eat lunch, denies fever, chills no headache no chest pain, no palpitations no other acute issues. Review of Systems All other system reviewed and negative. Physical Exam Vital Signs: Vital Signs: Last Vital Signs Temp 98.5 F 09/25/22 11:07 Pulse 71 09/25/22 15:03 Resp 20 09/25/22 15:03 BP 108/56 L 09/25/22 15:03 Pulse Ox 96 09/25/22 15:03 O2 Del Method Room Air 09/25/22 15:03 BMI result Body Mass Index 56.4 Const: Other: General awake alert sitting in bed, in no acute distress. Neck supple no JVD. CVS regular rate rhythm, Respiratory lungs clear to auscultation, no respiratory distress, no wheeze, no rhonchi. Gastrointestinal abdomen soft, non tender, bowel sounds audible, no guarding , no rigidity. Extremities no edema. Neuro nonfocal Skin no rash Psych appropriate affect Objective Data Active Medications Acetaminophen (Acetaminophen 325 Mg Tablet) 650 mg PO Q6H PRN PRN Reason: Pain, Mild (Pain Scale 1-3) Last Admin: 09/24/22 17:11 Dose: 650 mg Documented By: SCOTT Al Hydroxide/Mg Hydroxide (Magnesium Hydrox/Alum Hydrox 30 Ml Oral.Susp) 30 ml PO Q4H PRN PRN Reason: Heartburn/Nausea Amlodipine Besylate (Amlodipine Besylate 10 Mg Tablet) 10 mg PO DAILY [facility]; Protocol Last Admin: 09/25/22 08:55 Dose: 10 mg Documented By: ERNESTO Docusate Sodium (Docusate Sodium 100 Mg Capsule) 100 mg PO DAILY PRN PRN Reason: Constipation Enoxaparin Sodium (Enoxaparin Sodium 40 Mg/0.4 Ml Syringe) 40 mg SUBCUT Q24H [facility] Last Admin: 09/24/22 14:26 Dose: 40 mg Documented By: PARTH Escitalopram Oxalate (Escitalopram Oxalate 10 Mg Tablet) 10 mg PO BEDTIME [facility] Last Admin: 09/24/22 20:29 Dose: 10 mg Documented By: DANDRE Hydrochlorothiazide (Hydrochlorothiazide 25 Mg Tablet) 50 mg PO DAILY [facility]; Protocol Last Admin: 09/25/22 11:44 Dose: 50 mg Documented By: ERNESTO Hydroxyzine HCl (Hydroxyzine Hcl 25 Mg Tablet) 25 mg PO BEDTIME [facility] Last Admin: 09/24/22 21:11 Dose: Not Given Documented By: LENORA Non-Admin Reason: Patient Refused Levothyroxine Sodium (Levothyroxine Sodium 150 Mcg Tablet) 150 mcg PO DAILY@0600 [facility] Last Admin: 09/25/22 06:25 Dose: 150 mcg Documented By: LENORA Lisinopril (Lisinopril 40 Mg Tablet) 40 mg PO DAILY [facility]; Protocol Last Admin: 09/25/22 08:55 Dose: 40 mg Documented By: ERNESTO Melatonin (Melatonin 3 Mg Tablet) 6 mg PO BEDTIME [facility] Last Admin: 09/24/22 20:29 Dose: 6 mg Documented By: DANDRE Omeprazole (Omeprazole 20 Mg Capsule.) 20 mg PO DAILY@0630 [facility] Last Admin: 09/25/22 06:25 Dose: 20 mg Documented By: LENORA Pharmacy Consult (Consult Rx Perform Med Rec) 1 each MISCELLANE ONCE PRN PRN Reason: Consult order Prochlorperazine (Prochlorperazine 25 Mg Supp.Rect) 25 mg [place] Q12H PRN PRN Reason: Constipation Prochlorperazine Edisylate (Prochlorperazine Edisylate 10 Mg/2 Ml Vial) 5 mg IVPUSH Q4H PRN PRN Reason: Nausea and Vomiting Last Admin: 09/25/22 11:51 Dose: 5 mg Documented By: ERNESTO Sodium Chloride (0.9 % Sodium Chloride Flush 3 Ml Syringe) 3 ml IVFLUSH QSHIFT [facility] Last Admin: 09/25/22 11:44 Dose: 3 ml Documented By: ERNESTO Labs 09/25/22 07:11 09/25/22 12:38 Labs: Laboratory Results - last 24 hr 09/25/22 09/25/22 07:11 12:38 MCV 87.5 MCH 28.9 MCHC 33.0 RDW 13.3 Plt Count 203 MPV 10.4 Immature Gran % (Auto) 0.5 H Neut % (Auto) 64.0 Lymph % (Auto) 22.3 [place] % (Auto) 10.4 Eos % (Auto) 2.2 Baso % (Auto) 0.6 Lymph # (Auto) 2.5 [place] # (Auto) 1.2 Eos # (Auto) 0.2 Baso # (Auto) 0.1 Abs Immat Gran (auto) 0.06 H Absolute Neuts (auto) 7.0 Absolute Nucleated RBC 0.000 Nucleated RBC % (auto) 0.0 Anion Gap 12 Estim Creat Clear Calc 132.6 Estimated GFR > 60 Random Glucose 116 H Calcium 9.3 D Total Bilirubin 0.5 Direct Bilirubin 0.2 AST 109 H ALT 190 H Alkaline Phosphatase 79 Total Protein 7.0 Albumin 3.7 TSH 1.94 Assessment and Plan (1) Cyclical vomiting syndrome not associated with migraine: Status: Acute (2) Intractable vomiting: Status: Acute (3) Transaminitis: Status: Acute Plan 37-year-old female with history of hypothyroidism, hypertension, anxiety, ovarian cyst who is morbidly obese with BMI greater than 56 to be observed for intractable nausea and vomiting unable to tolerate PO. #Acute intractable nausea and vomiting -persistent symptoms of nausea vomiting unable to tolerate diet -recurrent symptoms x6 months, Recent HIDA scan, is status post cholecystectomy, CT abd/pelvis, endoscopy at [facility] unremarkable. -continue antiemetics IV fluids, placed on regular diet as tolerated -seen by Gastroenterology Dr. Santillan likely symptoms related to cyclical vomiting since all recent workup negative as above, she recommend amitriptyline 10 mg daily and to wean Lexapro -likely medications contributing to nausea like Lexapro -Renal function and lytes normal, follow bmp # acute normocytic anemia noted to have drop in hematocrit no acute blood loss noted, question dilutional will check iron studies, hemolysis workup, and stool guaiacs. repeat cbc. # acute leukocytosis -likely reactive secondary to above # transaminitis -likely reactive due to nausea and vomiting as well as chronic related to hepatic steatosis, repeat LFTs trending down, no abdominal pain # hypertension -reasonably controlled,continue home antihypertensives # hypothyroidism -continue Synthroid, stable TSH # mood disorder -continue home meds, will wean dose of Lexapro from 15 mg to 10 mg daily advised to gradually wean of and consider amitriptyline # morbid obesity due to excess calories with BMI greater than 56 -weight loss efforts encouraged DVT prophylaxis-Lovenox Full code Time Spent With Patient Time: Total time managing care of this patient today ____ minutes. Quality Stroke Does the patient have a stroke diagnosis?: No VTE Prior VTE?: No VTE Risk Level:: Medical - moderate - high VTE Device Contraindication: Treatment Not Indicated VTE Drug Contraindication: N/A - Med Ordered
--- NOTE | 2022-09-25 16:39 | P.DS_ITS ---
DS: Providers Provider Date of Service: 09/25/22 Date of admission: 09/24/22 13:50 Primary care physician: Teresa Alvarez MD Consults: 09/24/22 13:55 Consult to Gastroenterology Routine Consulting Provider: Judi Santillan Reason for consultation: intractable n/v DS: Diagnosis Discharge Diagnosis (1) Cyclical vomiting syndrome not associated with migraine: Status: Acute (2) Intractable vomiting: Status: Acute (3) Transaminitis: Status: Acute DS: Summary Hospital Course Hospital Course: Date of Service: 09/24/22 Attending physician on admission: Pilar Borges Chief Complaint: n/v 37-year-old female with history of hypothyroidism, hypertension, anxiety, ovarian cyst who is morbidly obese with BMI greater than 56 presents to the ED earlier this morning for evaluation of intractable nausea and vomiting ongoing for 2 days.? She states that she has had these symptoms intermittently ongoing for the last 6 months.? She has had multiple hospitalizations and ultimately underwent cholecystectomy given presence of gallstones though her symptoms continue to recur following the procedure.? She denies any known triggers and has been keeping a food diary.? Describes vomit as bilious and she is unable to tolerate p.o. when symptoms are active.? She was admitted at [facility] last month where she underwent HIDA scan, endoscopy, and gastric emptying study all of which were unremarkable.? She also had CT of the abdomen/pelvis which was negative for any acute intra abdominal abnormality but did show hepatic s teatosis.? She does have an outpatient [employer] director, Dr. Desouza and symptoms remain with unclear etiology.? In the ED, vital stable.? She is afebrile.? There is a mild leukocytosis of 11.4.? Renal function and electrolyte levels normal.? Total bilirubin 0.6, AST 130, ALT 207, alk phos 104.? She does not use any illicit substances and does not use any marijuana containing products.? She does not drink alcohol and does not smoke cigarettes.? While in the ED, received a total of 3 mg lorazepam, Reglan, and ondansetron x2.? She also received Maalox and 1 L IV NS.? Unfortunately, symptoms persisted patient will be admitted under observation. Hospital course: 37-year-old female with history of hypothyroidism, hypertension, anxiety, ovarian cyst who is morbidly obese with BMI greater than 56 to be observed for intractable nausea and vomiting unable to tolerate PO. #Acute intractable nausea and vomiting, admitted to medical floor treated with IV fluids, anti emetics , diet advanced all symptoms resolved, patient seen by [employer] she felt symptoms related to cyclical vomiting since underwent extensive workup at [facility] for same and all workup was negative GI recommended amitriptyline 10 mg daily for few weeks followed by 20 mg after weaning Lexapro, dose of Lexapro reduced to 10 mg daily advised patient to gradually wean Lexapro and follow-up with primary care physician. # acute normocytic anemia noted to have drop in hematocrit no acute blood loss noted, question dilutional, patient wishes to be discharged recommend outpatient workup with PCP. No active bleeding noted. # acute leukocytosis -likely reactive secondary to above # transaminitis -likely reactive due to nausea and vomiting as well as chronic related to hepatic steatosis, repeat LFTs trended down, no abdominal pain. # hypertension -reasonably controlled,continue home antihypertensives # hypothyroidism-continue Synthroid, stable TSH # mood disorder -continue home meds, will wean dose of Lexapro from 15 mg to 10 mg daily advised to gradually wean of and consider amitriptyline # morbid obesity due to excess calories with BMI greater than 56, weight loss efforts encouraged Time Spent with Patient Time attestation: Total time managing care of this patient today ____ minutes. Discharge coordination time: Greater than 30 minutes Quality: Safe Use of Opioids Does Pt have an Active Cancer Diagnosis on the Problem List?: No Quality: Stroke Does the patient have a stroke diagnosis?: No Physical Exam Vital Signs: Vital Signs: Last Vital Signs Temp 98.5 F 09/25/22 11:07 Pulse 71 09/25/22 15:03 Resp 20 09/25/22 15:03 BP 108/56 L 09/25/22 15:03 Pulse Ox 96 09/25/22 15:03 O2 Del Method Room Air 09/25/22 15:03 BMI result Body Mass Index 56.4 Const: Other: General awake alert sitting in bed, in no acute distress.? Neck supple no JVD. CVS? regular rate rhythm, Respiratory lungs clear to auscultation, no respiratory distress, no wheeze, no rhonchi. Gastrointestinal abdomen soft, non tender, bowel sounds audible, no guarding , no rigidity. Extremities no? edema. Neuro nonfocal Skin no rash Psych appropriate affect DS: Data Data Completed and Pending Labs on day of discharge: Laboratory Results - last 24 hr 09/25/22 09/25/22 07:11 12:38 WBC 11.0 H RBC 3.84 L Hgb 11.1 L Hct 33.6 L MCV 87.5 MCH 28.9 MCHC 33.0 RDW 13.3 Plt Count 203 MPV 10.4 Immature Gran % (Auto) 0.5 H Neut % (Auto) 64.0 Lymph % (Auto) 22.3 [place] % (Auto) 10.4 Eos % (Auto) 2.2 Baso % (Auto) 0.6 Lymph # (Auto) 2.5 [place] # (Auto) 1.2 Eos # (Auto) 0.2 Baso # (Auto) 0.1 Abs Immat Gran (auto) 0.06 H Absolute Neuts (auto) 7.0 Absolute Nucleated RBC 0.000 Nucleated RBC % (auto) 0.0 Sodium 138 Potassium 3.5 Chloride 104 Carbon Dioxide 26 Anion Gap 12 BUN 9 Creatinine 0.95 Estim Creat Clear Calc 132.6 Estimated GFR > 60 Random Glucose 116 H Calcium 9.3 D Total Bilirubin 0.5 Direct Bilirubin 0.2 AST 109 H ALT 190 H Alkaline Phosphatase 79 Total Protein 7.0 Albumin 3.7 TSH 1.94 Discharge Plan Discharge Anticipated Discharge Date/Time: 09/25/22 16:35 Patient Disposition: Home, Self-Care Discharge Diagnosis: Acute cyclical vomiting Referrals: Teresa Alvarez MD [Primary Care Provider] - 1 Week Discharge Medications: New escitalopram oxalate 10 mg Tablet 10 mg PO BEDTIME Qty: 30 0RF Continued hydrochlorothiazide 50 mg tablet 50 mg PO DAILY prochlorperazine [Compro] 25 mg suppository 25 mg [place] Q12H PRN (Reason: Constipation) amlodipine 10 mg tablet 10 mg PO DAILY pantoprazole 40 mg tablet,delayed release (DR/EC) 40 mg PO DAILY@0630 PRN (Reason: Acid Reflux) levothyroxine 150 mcg tablet 150 mcg PO DAILY@0600 hydroxyzine HCl 25 mg tablet 25 mg PO BEDTIME lisinopril 40 mg tablet 40 mg PO DAILY ondansetron 4 mg tablet,disintegrating 4 mg PO Q8H PRN (Reason: nausea/vomiting) Discontinued escitalopram oxalate 10 mg tablet 15 mg PO BEDTIME Discharge Orders: Discharge Order (Routine); Ordered 09/25/22 Ordered By: Pilar Bogres Diet: Advance to usual diet Activity on Discharge: As tolerated Stand Alone Forms: Patient Portal Discharge page Care Plan Goals: Wean Lexapro slowly take 10 mg daily for 1 week, followed by Lexapro 5 mg by mouth daily and discuss with primary care physician regarding nortriptyline 10 mg for 4 weeks and then increase to 20 mg Health Concerns: Hypothyroidism/hypertension Plan of Treatment: Outpatient follow-up with primary care physician Assessment: As above Discharge Date/Time: 09/25/22 17:04
== END 2022-09-25 17:04 | disposition home or self-care (01) ==
LOC: HO.ED 11:31 → HO.EDOVER 14:05 → HO.IMC 19:44
PROVIDERS: Admitting Provider Physician Assistant; Emergency Provider Emergency Medicine; PCP Pediatrics; Visit Provider Hospitalist
DX: R11.15 Cyclical vomiting syndrome unrelated to migraine (principal); R74.01 Elevation of levels of liver transaminase levels; D72.829 Elevated white blood cell count, unspecified; E03.9 Hypothyroidism, unspecified; I10 Essential (primary) hypertension; F41.9 Anxiety disorder, unspecified; E66.01 Morbid (severe) obesity due to excess calories; Z68.43 Body mass index [BMI] 50.0-59.9, adult
CPT/HCPCS: 36415; 80048; 80053; 80076; 81001; 81025; 83690; 84443; 85025; 93005; 96361; 96372; 96374; 96375; 96376; 99222; 99285; J1650; J2060; J2405; J2765

== ENCOUNTER → 2022-09-24 09:24 | Outpatient (BNV) | payer BC, SELFPAY | PROVIDERS: Admitting Provider Physician Assistant; Emergency Provider Emergency Medicine; PCP Pediatrics; Visit Provider Internal Medicine Cardiovascular Disease | DX: R94.31 Abnormal electrocardiogram [ECG] [EKG] (principal) | CPT/HCPCS: 93010 ==

== ENCOUNTER → 2022-09-24 13:50 | Outpatient (BNV) | payer BC, SELFPAY | PROVIDERS: Admitting Provider Physician Assistant; Emergency Provider Emergency Medicine; PCP Pediatrics; Visit Provider Physician Assistant | DX: R11.15 Cyclical vomiting syndrome unrelated to migraine (principal); R11.10 Vomiting, unspecified; R74.01 Elevation of levels of liver transaminase levels | CPT/HCPCS: 99223; 99239 ==

== ENCOUNTER → 2022-09-24 13:50 | Outpatient (BNV) | payer BC, SELFPAY | PROVIDERS: Admitting Provider Physician Assistant; Emergency Provider Emergency Medicine; PCP Pediatrics; Visit Provider Internal Medicine | DX: R11.15 Cyclical vomiting syndrome unrelated to migraine (principal) | CPT/HCPCS: 99232 ==

== ENCOUNTER 2022-09-26 11:16 | Emergency (ER) | payer BC, SELFPAY ==
[2022-09-26 11:23] VITALS: BP 154/58; PULSE 90; RESP 20; TEMP 36.1; O2SAT 96; BMI 57.0
--- NOTE | 2022-09-26 11:24 | ED.GENADULT ---
HPI - General Adult General Chief complaint: Nausea/Vomiting/Diarrhea Stated complaint: non stop throwing up Time Seen by Provider: 09/26/22 14:47 Source: patient Mode of arrival: ambulatory Limitations: no limitations History of Present Illness HPI narrative: Patient is a 37 year old assigned female at with a history of cyclical vomiting syndrome presenting to the emergency department today with nausea and vomiting. Patient states that this has been an ongoing, intermittent issue, since at least March of this month. Patient states that she was admitted on 09/24/2022 for this issue and just discharged yesterday. Patient states that she made it to work today and then the symptoms started again. Patient states that she has had reglan before but it did not help much. Patient denies any dizziness, lightheadedness, fever, chills, blurry vision, double vision, loss of vision, chest pain, difficulty breathing, shortness of breath, back pain, night sweats, pain with urination, increased urinary frequency, increased urinary urgency, blood in her urine or stool, syncope or a near syncopal episode, recent trauma or falls, bowel incontinence, bladder incontinence, bowel retention, bladder retention, or any other complaints at this time. Relieving factors: none Exacerbating factors: none Associated symptoms: nausea/vomiting Related Data Home Medications Medication Instructions Recorded Confirmed amlodipine 10 mg tablet 10 mg PO DAILY 09/24/22 09/24/22 hydrochlorothiazide 50 mg tablet 50 mg PO DAILY 09/24/22 09/24/22 hydroxyzine HCl 25 mg tablet 25 mg PO BEDTIME 09/24/22 09/24/22 levothyroxine 150 mcg tablet 150 mcg PO DAILY@0600 09/24/22 09/24/22 lisinopril 40 mg tablet 40 mg PO DAILY 09/24/22 09/24/22 ondansetron 4 mg disintegrating 4 mg PO Q8H PRN nausea/vomiting 09/24/22 09/24/22 tablet pantoprazole 40 mg tablet,delayed 40 mg PO DAILY@0630 PRN Acid Reflux 09/24/22 09/24/22 release prochlorperazine 25 mg rectal 25 mg OK Q12H PRN Constipation 09/24/22 09/24/22 suppository (Compro) Previous Rx's Medication Instructions Recorded escitalopram oxalate 10 mg tablet 10 mg PO BEDTIME #30 tabs 09/25/22 haloperidol 5 mg tablet 2.5 mg PO TID #20 tabs 09/26/22 Allergies Allergy/AdvReac Type Severity Reaction Status Date / Time No Known Allergies Allergy Verified 09/24/22 09:16 Review of Systems Constitutional: Constitutional: Reports no additional constitutional complaints, Denies chills, Denies fever(s) and Denies night sweats Eyes: Eyes: Reports no additional eye complaints, Denies blurry vision, Denies change in vision, Denies diplopia, Denies eye discharge, Denies loss of vision and Denies eye pain ENT: Denies dizziness Cardiovascular: Cardiovascular: Reports no additional cardiovascular complaints, Denies chest pain, Denies lightheadedness, Denies Loss of Consciousness and Denies dyspnea Respiratory: Respiratory: Reports no additional respiratory complaints and Denies dyspnea Gastrointestinal: Gastrointestinal: Reports no additional gastrointestinal complaints, Denies melena, Denies hematochezia, Denies change in bowel habits, Denies change in stool character, Reports nausea and Reports vomiting Genitourinary: Genitourinary: Denies hematuria, Denies urinary frequency, Denies dysuria, Denies urinary incontinence, Denies urinary hesitancy and Denies urinary urgency Musculoskeletal: Musculoskeletal: Reports no additional musculoskeletal complaints, Denies numbness and Denies tingling Neurologic: Denies dizziness, Denies loss of vision, Denies numbness and Denies tingling Psychiatric: Psychiatric: Reports no additional psychiatric complaints Endocrine: Endocrine: Reports no additional endocrine complaints Hematologic/Lymphatic: Hematologic/Lymphatic: Reports no additional hematologic/lymphatic complaints Allergic/Immunologic: Allergic/Immunologic: Reports no additional allergic/immunologic complaints [facility] Past Medical History Attestation statement: The following information was validated with the patient. Source: old records reviewed and nursing notes reviewed Medical History Anxiety GERD (gastroesophageal reflux disease) Hepatic steatosis Hypertension Hypothyroidism Morbid obesity Ovarian cyst Social History Social History Alcohol intake: current Alcohol intake frequency: holidays/special occasions only Patient Tobacco Use Status: Never used Tobacco Advance Directives: No service: No Physical Exam ED Vital Signs: Vital Signs - 24 hr 09/26/22 11:23 09/26/22 17:39 09/26/22 18:55 Temperature 97.0 F 100.3 F 99.0 F Pulse Rate 90 94 83 Respiratory Rate 20 16 16 Blood Pressure 154/58 H 142/61 H 144/66 H Pulse Oximetry 96 97 98 Oxygen Delivery Method Room Air Room Air Room Air BMI result Body Mass Index 57.0 Const General: cooperative, no acute distress, alert and awake Nutritional Appearance: well nourished Orientation/consciousness: patient oriented x3 Limitations: no limitations HENMT Head: Yes normal to inspection and Yes atraumatic Ears: hearing grossly normal bilaterally and external ears normal General nose exam: Normal external nose present, no nasal discharge noted and no epistaxis Face and sinus: Yes normal facial exam, No abrasion and No laceration Mouth: Normal oral and palatal mucosa present, no drooling and no muffled voice Eyes General: appearance normal, both eyes and all related structures Periorbital: periorbital findings normal Eyelids: Yes eyelids normal Conjunctivae: conjunctivae normal Pupils: Equal, round and reactive pupils present EOM: EOMs intact bilaterally Neck Neck: Yes normal visual inspection, Yes full ROM and Yes no lymphadenopathy Chest Chest palpation & inspection: normal inspection of the chest Resp Effort & Inspection: normal respiratory effort and able to speak in complete sentences Auscultation: clear to auscultation bilaterally Cardio Rate: regular rate Rhythm: regular rhythm GI Inspection: Yes normal to inspection Palpation (GI): Soft to palpation, not firm, no guarding and not rigid Neuro General: patient oriented x3 and moves all extremities Cranial nerves: Yes Equal, round and reactive pupils present Cognition (Neuro): normal cognition Motor exam (neuro): 5/5 motor strength present throughout Sensory Exam: Normal double simultaneous stimulation for sensation Coordination: [id number] test normal Extrem General: Yes normal to inspection, Yes full ROM and Yes capillary refill normal Psych Appearance: grossly normal Mental Status: mental status grossly normal Affect: normal affect Attitude: cooperative Thought process: Normal thought process present Thought content: Normal thought content present Insight: Good insight present (Psych) Course Course Course Narrative: This is an RME: Additional HPI, ROS, PE not included below will be deferred to primary provider. This is a 37-year-old female came in for evaluation of intractable vomiting.? Patient was just admitted to the hospital from September 24 through September 25 for these symptoms, was discharged last night. She woke up this morning with intractable vomiting. Denies fevers endorses chills. She has been unable to tolerate liquids or food by mouth. No abdominal pain. She states that she has had ongoing problems with cyclical vomiting, was thought that it was due to her gallbladder which she had removed in May. Abdomen is soft nontender patient is afebrile. Actively vomiting. She does not use marijuana. Plan: Repeat labs, UA. Will defer imaging at this time until patient seen by provider in main ER. Reevaluation(s) Reevaluation #1: Patient re-evaluated, she reports feeling better. I p.o. challenge the patient with carolyne and crackers and she was able to keep it down without any further nausea. Will discharge the patient home with low dose of Haldol and she will follow-up with GI reports having appointment in 10 days Time: 19:40 Medications Administered Discontinued Medications Generic Name Dose Route Start Last Admin Trade Name Freq PRN Reason Stop Dose Admin Diphenhydramine HCl 25 mg 09/26/22 14:59 09/26/22 16:32 Diphenhydramine Hcl 50 Mg/Ml Vial IVPUSH 09/26/22 15:00 25 mg ONCE ONE Administration Haloperidol Lactate 5 mg 09/26/22 15:01 09/26/22 16:34 Haloperidol Lactate 5 Mg/Ml Vial IM 09/26/22 15:02 5 mg ONCE ONE Administration Sodium Chloride 1,000 mls @ 999 mls/hr 09/26/22 15:00 09/26/22 16:32 Ns IV 09/26/22 16:00 999 mls/hr .[id number] BRANDI Administration Medical Decision Making Medical Decision Making [facility] Narrative: Patient is a 37 year old assigned female at with a history of cyclic vomiting presenting to the emergency department today with nausea and vomiting. Patient's physical exam was unremarkable. Patient's blood work showed a slightly elevated WBC count of 13.4 which is consistent with a stress reaction secondary to nausea and vomiting. The rest of the patient's labs are grossly normal. I explained my physical exam findings as well as all test results to the patient. I answered all questions asked by the patient. Haldol, Benadryl, and IV fluids ordered for the patient. Patient signed out to RAJINDER Huang pending re-evaluation post medication for symptomatic relief. Differential Diagnosis Differential Diagnoses: The differential diagnosis associated with the presentation includes Cyclical vomiting Nausea and vomiting Admission/Observation Consideration of admission/observation: Escalation of care including admission/observation considered Patient's disposition will be determined after medication is administrated. Lab Data [facility] Lab Attestation statement: I reviewed the patient's lab results. My interpretation of these results are in the MDM portion of this note. 09/26/22 12:45 09/26/22 12:45 Labs: Lab Results 09/26/22 09/26/22 09/26/22 Range/Units 12:45 12:45 18:58 WBC 13.4 H (4.8-10.8) X10*3/uL RBC 4.43 (4.20-5.50) X10*6/uL Hgb 12.9 (12.0-16.0) g/dl Hct 38.5 (37.0-47.0) % MCV 86.9 (80.0-98.0) fL MCH 29.1 (27.0-33.0) pg MCHC 33.5 (31.0-35.0) g/dl RDW 13.5 (11.0-16.0) % Plt Count 229 (160-400) X10*3/uL MPV 10.6 (9.4-12.3) fL Immature Gran % (Auto) 0.6 H (0.0-0.4) % Neut % (Auto) 82.5 H (45-73) % Lymph % (Auto) 9.9 L (20-40) % [place] % (Auto) 5.8 (2-11) % Eos % (Auto) 0.8 (0-4) % Baso % (Auto) 0.4 (0-2) % Lymph # (Auto) 1.3 (1.2-4.9) X10*3/uL [place] # (Auto) 0.8 (0.1-1.2) X10*3/uL Eos # (Auto) 0.1 (0.0-0.4) X10*3/uL Baso # (Auto) 0.1 (0.0-0.2) X10*3/uL Abs Immat Gran (auto) 0.08 H (0.00-0.03) X10*3/uL Absolute Neuts (auto) 11.0 H (2.0-8.3) x10*3/uL Absolute Nucleated RBC 0.000 (0.0-0.012) X10*3/uL Nucleated RBC % (auto) 0.0 (0.0-0.2) /100WBC Sodium 138 (135-145) mmol/L Potassium 3.9 (3.3-5.1) mmol/L Chloride 102 (96-108) mmol/L Carbon Dioxide 25 (22-29) mmol/L Anion Gap 15 (12-20) BUN 8 L (9-16) mg/dL Creatinine 0.81 (0.5-1.4) mg/dL Estim Creat Clear Calc 156.6 Estimated GFR > 60 Random Glucose 120 H (60-115) mg/dL Calcium 9.7 (8.4-10.2) mg/dL Magnesium 1.8 (1.6-2.6) mg/dL Total Bilirubin 0.6 (0.0-1.0) mg/dL Direct Bilirubin 0.3 (0.0-0.5) mg/dL AST 87 H (5-31) U/L ALT 197 H (0-31) U/L Alkaline Phosphatase 102 (39-117) U/L Total Protein 7.9 (6.5-8.0) g/dL Albumin 4.3 (3.5-5.0) g/dL Lipase 5 L (8-78) U/L Urine Color Yellow Urine Appearance Clear Urine pH 7.0 (5.0-9.0) Ur Specific [place] 1.015 (1.005-1.025) Urine Protein Negative (Neg-Trace) mg/dL Urine Glucose (UA) Negative (Negative) mg/dL Urine Ketones 15 (Negative) mg/dL Urine Blood Negative (Negative) Urine Nitrite Negative (Negative) Ur Leukocyte Esterase Trace H (Negative) Urine RBC 6-10 H (0-2) /HPF Urine WBC 0-5 (0-5) /HPF Ur Squamous Epith Cells 6-10 (0-2) /HPF Urine Bacteria 1+ (None Seen) Hyaline Casts 0-2 (0-2) /LPF Chronic Conditions Patient?s care impacted by: Other (cyclical vomiting) Discharge Plan Discharge Clinical Impression: Cyclical vomiting syndrome not associated with migraine Patient Disposition: Home, Self-Care Instructions: Acute Nausea and Vomiting (ED) Additional Instructions: Take the pantoprazole daily for the next 2 weeks Use Haldol up to every 8 hours for nausea or vomiting Consume a bland diet and advance as tolerated Hydrate well, small frequent sips Follow-up with GI Return for new or worsening symptoms Prescriptions: New haloperidol 5 mg tablet 2.5 mg PO TID Qty: 20 0RF No Action hydrochlorothiazide 50 mg tablet 50 mg PO DAILY prochlorperazine [Compro] 25 mg suppository 25 mg [place] Q12H PRN (Reason: Constipation) amlodipine 10 mg tablet 10 mg PO DAILY pantoprazole 40 mg tablet,delayed release (DR/EC) 40 mg PO DAILY@0630 PRN (Reason: Acid Reflux) levothyroxine 150 mcg tablet 150 mcg PO DAILY@0600 hydroxyzine HCl 25 mg tablet 25 mg PO BEDTIME lisinopril 40 mg tablet 40 mg PO DAILY ondansetron 4 mg tablet,disintegrating 4 mg PO Q8H PRN (Reason: nausea/vomiting) escitalopram oxalate 10 mg Tablet 10 mg PO BEDTIME Qty: 30 0RF
[2022-09-26 12:52] LABS: MANUAL DIFF FLAG NO
[2022-09-26 12:57] LABS: Basophils Absolute Auto 0.1 X10*3/uL (0.0-0.2); Basophils Percent Auto 0.4 % (0-2); Eosinophils Absolute Auto 0.1 X10*3/uL (0.0-0.4); Eosinophils Percent Auto 0.8 % (0-4); Hematocrit 38.5 % (37.0-47.0); Hemoglobin 12.9 g/dl (12.0-16.0); Imm Gran Abs Auto 0.08 X10*3/uL (0.00-0.03); Imm Gran Pct Auto 0.6 % (0.0-0.4); Lymphocytes Absolute Auto 1.3 X10*3/uL (1.2-4.9); Lymphocytes Percent Auto 9.9 % (20-40); Mean Corpuscular HGB Conc 33.5 g/dl (31.0-35.0); Mean Corpuscular Hemoglobin 29.1 pg (27.0-33.0); Mean Corpuscular Volume 86.9 fL (80.0-98.0); Mean Platelet Volume 10.6 fL (9.4-12.3); Monocytes Absolute Auto 0.8 X10*3/uL (0.1-1.2); Monocytes Percent Auto 5.8 % (2-11); Neutrophils Percent Auto 82.5 % (45-73); Platelet Count 229 X10*3/uL (160-400); Red Blood Count 4.43 X10*6/uL (4.20-5.50); Red Cell Distribution Width 13.5 % (11.0-16.0); White Blood Count 13.4 X10*3/uL (4.8-10.8)
[2022-09-26 13:14] LABS: Alanine Aminotransferase 197 U/L (0-31); Albumin Level 4.3 g/dL (3.5-5.0); Alkaline Phosphatase 102 U/L (39-117); Anion Gap 15 (12-20); Aspartate Amino Transferase 87 U/L (5-31); Bilirubin Direct 0.3 mg/dL (0.0-0.5); Bilirubin Total 0.6 mg/dL (0.0-1.0); Blood Urea Nitrogen 8 mg/dL (9-16); Calcium 9.7 mg/dL (8.4-10.2); Carbon Dioxide 25 mmol/L (22-29); Chloride 102 mmol/L (96-108); Creatinine Clr Calc Pharmacy 156.6; Estimated Glomerular Filt Rate > 60; Glucose Random 120 mg/dL (60-115); Lipase 5 U/L (8-78); Magnesium 1.8 mg/dL (1.6-2.6); Potassium 3.9 mmol/L (3.3-5.1); Sodium 138 mmol/L (135-145); Total Protein 7.9 g/dL (6.5-8.0)
[2022-09-26] MEDS: diphenhydrAMINE HCL 50 MG/ML VIAL 25 MG IVPUSH (16:32)
[2022-09-26] MEDS: 0.9 % Sodium Chloride 1,000 ML 999 ML IV (16:32)
[2022-09-26] MEDS: Haloperidol Lactate 5 MG/ML VIAL IM (16:34)
[2022-09-26 17:39] VITALS: BP 142/61; PULSE 94; RESP 16; TEMP 37.9; O2SAT 97
[2022-09-26 18:55] VITALS: BP 144/66; PULSE 83; RESP 16; TEMP 37.2; O2SAT 98
[2022-09-26 19:05] LABS: Appearance Urine Clear; Color Urine Yellow; Glucose Urine UA Negative (Negative); Leukocyte Esterase Urine Trace (Negative); Nitrite Urine Negative (Negative); Specific Gravity - Urine 1.015 (1.005-1.025); UMIC TRIGGER UACC YES; Urine Blood Negative (Negative); Urine Ketones 15 mg/dL (Negative); Urine Protein Negative (Neg-Trace)
[2022-09-26 19:27] LABS: Bacteria Urine 1+ (None Seen); Hyaline Casts Urine 0-2 /LPF (0-2); WBC Urine 0-5 /HPF (0-5)
== END 2022-09-26 20:00 | disposition home or self-care (01) ==
PROVIDERS: Physician Assistant Medical; Emergency Provider Student in an Organized Health Care Education/Training Program; PCP Internal Medicine
DX: R11.15 Cyclical vomiting syndrome unrelated to migraine (principal); R11.2 Nausea with vomiting, unspecified; Z79.899 Other long term (current) drug therapy
CPT/HCPCS: 36415; 80048; 80076; 81001; 83690; 83735; 85025; 96372; 96374; 99283; 99284; J1200

== ENCOUNTER → 2022-10-02 15:20 | Outpatient (BNVA) | payer BC, SELFPAY | PROVIDERS: PCP Internal Medicine; Visit Provider Physician Assistant Surgical ==

== ENCOUNTER 2022-10-31 10:54 | Outpatient (AMB) | payer BC, SELFPAY ==
--- NOTE | 2022-10-31 10:56 | A.OFFVIS_ITS ---
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 Her goal is to loose alvarez and be more mobile. She reports first being concerned about her weight since 6th grade, worse over 5 years. AIDAN 7, no therapist. She has tried multiple methods of weight loss including RD without permanent results. She lives with her and mother. She works 5 days per week 7:30 am - 5:30 pm. She wakes at: 6am, bed at 8:30 -9pm, use CPAP nightly for last month Breakfast:7-7:30 am - sandwich OR ramen noodles. Diet Pepsi Lunch: grazing through out the day - or may have a sandwich Dinner: 5:30 - 6pm- has a meal 3 d/wk - other days continues to graze After dinner: If has a meal does not eat after dinner Other snacks: grazes all during the day, crackers, carrots, grapes, chips Liquids: Diet Pepsi 3-4 per day. Has one with dinner. No fruitjuice or sweetened juice Alcohol intake: none, tobacco: none, marijuana: none Exercise:none, has a treadmill and bike at home, never used Last mammogram: never had one Last pap smear: has appt in November control method: none needed AIDAN: 7 ESS:6 GERD:2 QOL: 95 [facility] Medical History (Updated 10/31/22 @ 12:14 by YANELY StackC) HTN (hypertension), benign Hepatic steatosis Ovarian cyst Anxiety Morbid obesity GERD (gastroesophageal reflux disease) Hypertension Hypothyroidism Social History Alcohol intake: current Alcohol intake frequency: holidays/special occasions only Patient Tobacco Use Status: Never used Tobacco service: No Physical Exam Vital Signs: Last Vital Signs Temp 96.9 F 10/31/22 11:02 Pulse 103 H 10/31/22 11:02 BP 151/70 H 10/31/22 11:02 Pulse Ox 98 10/31/22 11:02 Oxygen Delivery Method Room Air 10/31/22 11:02 BMI result Body Mass Index 59.2 Const General: cooperative, no acute distress and well developed Nutritional Appearance: obese Orientation/consciousness: patient oriented x3 HEENT Head: Yes normal to inspection Neck Neck: Yes normal visual inspection Thyroid: Thyroid normal Resp Effort & Inspection: normal respiratory effort Auscultation: clear to auscultation bilaterally Cardio Rate: regular rate Rhythm: regular rhythm Heart sounds: S1 normal heart sound present, S2 normal heart sound present and no murmurs GI Inspection: No distended and Yes obesity Palpation (GI): Soft to palpation, nontender and no guarding Skin General skin exam: no rashes or lesions noted and other (warm and dry) Wounds: no wounds Hair: normal Neuro General: patient oriented x3 Extrem General: Yes no pedal edema and Yes no calf tenderness Psych Attitude: cooperative Thought process: Normal thought process present Thought content: Normal thought content present Insight: Good insight present (Psych) Judgement: Good judgement present (Psych) Assessment & Plan Assessment & Plan (1) Morbid obesity: Code(s): E66.01 - Morbid (severe) obesity due to excess calories Plan: This is a 37 yo woman with morbid obesity, HTN, Hypoth and GERD and very disordered eating habits who will start SWL program to prepare for bariatric surgery. Blood work, h pylori , CXR, ECG, Abd ULS and UGI have been ordered. She is being scheduled for RD and BH initial consultations. She will start SWL classes and watch at 3 classes before her next appt with Judy. Will do h pylori at another time. I am hoping that once she starts a different eating pattern her symptoms of nausea dn emesis will resolve and she can stop haloperidol and amytriptiyline which may effect her weight loss. 1. Adequate sleep of 7-8 hours per night discussed, no caffeine after 1pm, CPAP > 6 h 2. Healthy meal plan - stop skipping meals and stop all snacking/grazing All meals/MR's need to take 20 minutes to complete 8am - 30 gram shake 11 am - yogurt or bar 1 pm- shake 3:30 - yogurt or bar 6 pm- dinner of 6 oz lean protein, 6 oz vegetable, 1 serving fruit Exercise - goal of 30 minutes 7d/ week. TBP sitting or LS 1 mile The importance of avoiding and breast feeding for at least 18 months after bariatric surgery was discussed in the information session and was reinforced today. Pt will purchase body composition analyzer (recommended list given to patient) and weight herself weekly. Next appt with me in 3 weeks. Text me with any questions and weekly weights. Patient is morbidly obese and is not considered stable at this time.?I spent a total of 60 minutes reviewing/updating records, examining the patient and counseling the patient on weight management as detailed above. (2) Hypertension: Code(s): I10 - Essential (primary) hypertension (3) Hypothyroidism: Code(s): E03.9 - Hypothyroidism, unspecified (4) GERD (gastroesophageal reflux disease): Code(s): K21.9 - Gastro-esophageal reflux disease without esophagitis (5) Hx of colonoscopy: Code(s): Z98.890 - Other specified postprocedural states (6) Hx of bladder endoscopy: Code(s): Z98.890 - Other specified postprocedural states; Z87.448 - Personal history of other diseases of urinary system (7) Hx of wisdom tooth extraction: Code(s): K08.409 - Partial loss of teeth, unspecified cause, unspecified class Orders: Orders Insulin Today E03.9 - Hypothyroidism, unspecified, E66.01 - Morbid (severe) obesity due to excess calories, I10 - Essential (primary) hypertension, K21.9 - Gastro-esophageal reflux disease without esophagitis, R94.31 - Abnormal e lectrocardiogram [ECG] [EKG], Z01.818 - Encounter for other preprocedural examination C Reactive Protein Today E03.9 - Hypothyroidism, unspecified, E66.01 - Morbid (severe) obesity due to excess calories, I10 - Essential (primary) hypertension, K21.9 - Gastro-esophageal reflux disease without esophagitis, R94.31 - Abnormal electrocardiogram [ECG] [EKG], Z01.818 - Encounter for other preprocedural examination TSH reflex Free T4 Today E03.9 - Hypothyroidism, unspecified, E66.01 - Morbid (severe) obesity due to excess calories, I10 - Essential (primary) hypertension, K21.9 - Gastro-esophageal reflux disease without esophagitis, R94.31 - Abnormal electrocardiogram [ECG] [EKG], Z01.818 - Encounter for other preprocedural examination Vitamin B1 Today E03.9 - Hypothyroidism, unspecified, E66.01 - Morbid (severe) obesity due to excess calories, I10 - Essential (primary) hypertension, K21.9 - Gastro-esophageal reflux disease without esophagitis, R94.31 - Abnormal electrocardiogram [ECG] [EKG], Z01.818 - Encounter for other preprocedural examination H Pylori Breath Test Today E03.9 - Hypothyroidism, unspecified, E66.01 - Morbid (severe) obesity due to excess calories, I10 - Essential (primary) hypertension, K21.9 - Gastro-esophageal reflux disease without esophagitis, R94.31 - Abnormal electrocardiogram [ECG] [EKG], Z01.818 - Encounter for other preprocedural examination Zinc Today E03.9 - Hypothyroidism, unspecified, E66.01 - Morbid (severe) obesity due to excess calories, I10 - Essential (primary) hypertension, K21.9 - Gastro- esophageal reflux disease without esophagitis, R94.31 - Abnormal electrocardiogram [ECG] [EKG], Z01.818 - Encounter for other preprocedural examination IRON PROFILE Today E03.9 - Hypothyroidism, unspecified, E66.01 - Morbid (severe) obesity due to excess calories, I10 - Essential (primary) hypertension, K21.9 - Gastro-esophageal reflux disease without esophagitis, R94.31 - Abnormal electrocardiogram [ECG] [EKG], Z01.818 - Encounter for other preprocedural examination Vitamin D 25-OH Total Today E03.9 - Hypothyroidism, unspecified, E66.01 - Morbid (severe) obesity due to excess calories, I10 - Essential (primary) hypertension, K21.9 - Gastro-esophageal reflux disease without esophagitis, R94.31 - Abnormal electrocardiogram [ECG] [EKG], Z01.818 - Encounter for other preprocedural examination FL upper GI w air Today E03.9 - Hypothyroidism, unspecified, E66.01 - Morbid (severe) obesity due to excess calories, I10 - Essential (primary) hypertension, K21.9 - Gastro-esophageal reflux disease without esophagitis, R94.31 - Abnormal electrocardiogram [ECG] [EKG], Z01.818 - Encounter for other preprocedural examination CA echo transthorac w con Today E03.9 - Hypothyroidism, unspecified, E66.01 - Morbid (severe) obesity due to excess calories, I10 - Essential (primary) hypertension, K21.9 - Gastro-esophageal reflux disease without esophagitis, R94.31 - Abnormal electrocardiogram [ECG] [EKG], Z01.818 - Encounter for other preprocedural examination CA lexiscan stress w carly Today E03.9 - Hypothyroidism, unspecified, E66.01 - Morbid (severe) obesity due to excess calories, I10 - Essential (primary) hypertension, K21.9 - Gastro-esophageal reflux disease without esophagitis, R94.31 - Abnormal electrocardiogram [ECG] [EKG], Z01.818 - Encounter for other preprocedural examination Hemoglobin A1c Today E03.9 - Hypothyroidism, unspecified, E66.01 - Morbid (severe) obesity due to excess calories, I10 - Essential (primary) hypertension, K21.9 - Gastro-esophageal reflux disease without esophagitis, R94.31 - Abnormal electrocardiogram [ECG] [EKG], Z01.818 - Encounter for other preprocedural examination Lipid Panel Today E03.9 - Hypothyroidism, unspecified, E66.01 - Morbid (severe) obesity due to excess calories, I10 - Essential (primary) hypertension, K21.9 - Gastro-esophageal reflux disease without esophagitis, R94.31 - Abnormal electrocardiogram [ECG] [EKG], Z01.818 - Encounter for other preprocedural examination Vitamin B12 and Folate Today E03.9 - Hypothyroidism, unspecified, E66.01 - Morbid (severe) obesity due to excess calories, I10 - Essential (primary) hypertension, K21.9 - Gastro-esophageal reflux disease without esophagitis, R94.31 - Abnormal electrocardiogram [ECG] [EKG], Z01.818 - Encounter for other preprocedural examination Vitamin A Today E03.9 - Hypothyroidism, unspecified, E66.01 - Morbid (severe) obesity due to excess calories, I10 - Essential (primary) hypertension, K21.9 - Gastro-esophageal reflux disease without esophagitis, R94.31 - Abnormal electrocardiogram [ECG] [EKG], Z01.818 - Encounter for other preprocedural examination PTHI Today E03.9 - Hypothyroidism, unspecified, E66.01 - Morbid (severe) obesity due to excess calories, I10 - Essential (primary) hypertension, K21.9 - Gastro- esophageal reflux disease without esophagitis, R94.31 - Abnormal electrocardiogram [ECG] [EKG], Z01.818 - Encounter for other preprocedural examination US abdomen comp w elastography Today E03.9 - Hypothyroidism, unspecified, E66.01 - Morbid (severe) obesity due to excess calories, I10 - Essential (primary) hypertension, K21.9 - Gastro-esophageal reflux disease without esophagitis, R94.31 - Abnormal electrocardiogram [ECG] [EKG], Z01.818 - Encounter for other preprocedural examination XR chest 2V Today E03.9 - Hypothyroidism, unspecified, E66.01 - Morbid (severe) obesity due to excess calories, I10 - Essential (primary) hypertension, K21.9 - Gastro-esophageal reflux disease without esophagitis, R94.31 - Abnormal electrocardiogram [ECG] [EKG], Z01.818 - Encounter for other preprocedural examination NM cardiolite stress test Today E03.9 - Hypothyroidism, unspecified, E66.01 - Morbid (severe) obesity due to excess calories, I10 - Essential (primary) hypertension, K21.9 - Gastro-esophageal reflux disease without esophagitis, R94.31 - Abnormal electrocardiogram [ECG] [EKG], Z01.818 - Encounter for other preprocedural examination Referrals Behavioral Health Referral E03.9 - Hypothyroidism, unspecified, E66.01 - Morbid (severe) obesity due to excess calories, I10 - Essential (primary) hypertension, K21.9 - Gastro-esophageal reflux disease without esophagitis, R94.31 - Abnormal electrocardiogram [ECG] [EKG], Z01.818 - Encounter for other preprocedural examination Nutrition/Dietitian Referral E03.9 - Hypothyroidism, unspecified, E66.01 - Morbid (severe) obesity due to excess calories, I10 - Essential (primary) hypertension, K21.9 - Gastro-esophageal reflux disease without esophagitis, R94.31 - Abnormal electrocardiogram [ECG] [EKG], Z01.818 - Encounter for other preprocedural examination Coding Level of Care Code New Pt Level 5 (83633) Diagnoses Morbid obesity E66.01 Hypertension I10 Hypothyroidism E03.9 GERD (gastroesophageal reflux disease) K21.9 Hx of colonoscopy Z98.890 Hx of bladder endoscopy Z98.890; Z87.448 Hx of wisdom tooth extraction K08.409
[2022-10-31 11:02] VITALS: BP 151/70; PULSE 103; TEMP 36.1; O2SAT 98; BMI 59.2
== END 2022-10-31 12:20 | disposition home or self-care (01) ==
PROVIDERS: PCP Pediatrics; Visit Provider Physician Assistant
DX: E66.01 Morbid (severe) obesity due to excess calories (principal); Z68.43 Body mass index [BMI] 50.0-59.9, adult
CPT/HCPCS: 99205

== ENCOUNTER → 2022-10-31 10:54 | Outpatient (BNVA) | payer BC, SELFPAY | PROVIDERS: PCP Pediatrics; Visit Provider Physician Assistant ==

== ENCOUNTER 2022-11-01 07:28 | Outpatient (REF) | payer BC, SELFPAY ==
--- NOTE | 2022-11-01 | ECG_ITS ---
Test Reason : cp Blood Pressure : / mmHG Vent. Rate : 082 BPM Atrial Rate : 082 BPM P-R Int : 150 ms QRS Dur : 100 ms QT Int : 390 ms P-R-T Axes : 051 073 -28 degrees QTc Int : 455 ms Normal sinus rhythm T wave abnormality, consider inferior ischemia Abnormal ECG When compared with ECG of 24-SEP-2022 09:24, T wave inversion more evident in Inferior leads Referred By: Stephanie Gomez Electronically Signed By:GUNNAR FREEMAN
--- NOTE | ~2022-11-01 | XR_ITS ---
EXAMINATION: XR CHEST CLINICAL INFORMATION: Encounter for preprocedural exam COMPARISON: None available. TECHNIQUE: 2 views of the chest were obtained. FINDINGS: No significant abnormality is noted involving the heart, lungs, mediastinum, bony thorax or soft tissues. XR/XR chest 2V IMPRESSION: Unremarkable examination.
[2022-11-01 08:21] LABS: Estimated Average Glucose 108 mg/dL; Hemoglobin A1c % 5.4 % (<6.0)
[2022-11-01 08:53] LABS: C Reactive Protein 1.15 mg/dL (< or = 0.50); Cholesterol 149 mg/dL (<200); HDL Cholesterol 45 mg/dL (>40); Iron 69 mcg/dL (30-160); LDL Cholesterol Calculated 93 mg/dL (<100); Percent Iron Saturation 22 % (15-50); Total Iron Binding Capacity 320 mcg/dL (228-428); Triglycerides 58 mg/dL (<150); Unsaturated Iron Binding 251 ug/dL
[2022-11-01 09:13] LABS: Insulin 43 uU/mL (2-29); TSH reflex Free T4 3.14 uIU/mL (0.32-4.0); Vitamin D 25-OH Total 24.2 ng/mL (>30)
[2022-11-01 09:16] LABS: Folate 11.7 ng/mL (> or = 4.0); Vitamin B12 625 pg/mL (200-900)
[2022-11-04 13:59] LABS: Calcium (PTHI) 9.3 mg/dL (8.6-10.2); PTHI 36 pg/mL (16-77)
[2022-11-06 06:58] LABS: Zinc 79 mcg/dL (60-130)
[2022-11-07 16:14] LABS: Vitamin A 33 mcg/dL (38-98)
[2022-11-09 15:18] LABS: Vitamin B1 12 nmol/L (8-30)
== END 2022-11-01 07:29 | disposition home or self-care (01) ==
LOC: HO.XRAY 07:28
PROVIDERS: PCP Pediatrics; Visit Provider Physician Assistant
DX: Z01.818 Encounter for other preprocedural examination (principal); E66.01 Morbid (severe) obesity due to excess calories; R94.31 Abnormal electrocardiogram [ECG] [EKG]; E03.9 Hypothyroidism, unspecified; I10 Essential (primary) hypertension; K21.9 Gastro-esophageal reflux disease without esophagitis
CPT/HCPCS: 36415; 71046; 80061; 82306; 82607; 82746; 83036; 83525; 83540; 83970; 84425; 84443; 84590; 84630; 86140; 93005

== ENCOUNTER 2022-11-05 12:14 | Emergency (ER) | payer BC, SELFPAY ==
[2022-11-05 12:46] VITALS: BP 123/95; PULSE 116; RESP 18; TEMP 36.2; O2SAT 98; BMI 56.9
--- NOTE | 2022-11-05 12:46 | ED_ITS ---
HPI - Nausea/Vomiting/Diarrhea General Chief complaint: Nausea/Vomiting/Diarrhea Stated complaint: Vomiting Dehydrated Time Seen by Provider: 11/05/22 19:01 Source: patient Mode of arrival: ambulatory Limitations: no limitations History of Present Illness HPI Narrative: Patient history of vomiting since 04/11 multiple times multiple ED visits multiple gastroenterologists workup all negative had cholecystectomy for the same still vomiting few times a day no relation with food no diarrhea no significant abdominal pain does feel cramping in the abd, no fever no chills no urinary complaints Related Data Home Medications Medication Instructions Recorded Confirmed amlodipine 10 mg tablet 10 mg PO DAILY 09/24/22 09/24/22 hydrochlorothiazide 50 mg tablet 50 mg PO DAILY 09/24/22 09/24/22 levothyroxine 150 mcg tablet 150 mcg PO DAILY@0600 09/24/22 09/24/22 lisinopril 40 mg tablet 40 mg PO DAILY 09/24/22 09/24/22 ondansetron 4 mg disintegrating 4 mg PO Q8H PRN nausea/vomiting 09/24/22 09/24/22 tablet pantoprazole 40 mg tablet,delayed 40 mg PO DAILY@0630 PRN Acid Reflux 09/24/22 09/24/22 release Previous Rx's Medication Instructions Recorded haloperidol 5 mg tablet 2.5 mg (1/2 x 5 mg) PO TID #20 tabs 09/26/22 cholecalciferol (vitamin D3) 25 25 mcg PO DAILY #30 caps 11/01/22 mcg (1,000 unit) capsule lorazepam 1 mg tablet (Ativan) 1 mg PO BID PRN anxiety/sleep #20 11/05/22 tabs Allergies Allergy/AdvReac Type Severity Reaction Status Date / Time No Known Allergies Allergy Verified 10/31/22 11:04 Review of Systems 2 Review of Systems: Yes all other systems are reviewed and are negative PMFSH Past Medical History Medical History HTN (hypertension), benign Hepatic steatosis Ovarian cyst Anxiety Morbid obesity GERD (gastroesophageal reflux disease) Hypertension Hypothyroidism Social History Social History Alcohol intake: current Alcohol intake frequency: holidays/special occasions only Patient Tobacco Use Status: Never used Tobacco Use of substances other than those prescribed or required for medical reasons: No Advance Directives: No Advance Directives Information Provided: No Patient : No service: No Physical Exam 2 Vital Signs: Vital Signs: Last Vital Signs Temp 98.5 F 11/05/22 19:10 Pulse 112 H 11/05/22 21:48 Resp 18 11/05/22 21:48 BP 138/66 11/05/22 21:48 Pulse Ox 93 11/05/22 21:48 O2 Del Method Room Air 11/05/22 19:10 BMI result Body Mass Index 56.9 Appearance: Alert. Oriented X3. No acute distress. And Eyes: PERRLA, No Nystagmus ENT: Pharynx normal. Oral Mucosa moist Neck: Normal inspection. Neck supple. CVS: Normal heart rate and rhythm. Pulses normal. Respiratory: No respiratory distress. Equal air entry bilateral, no wheezing/rales/rhonchi Abdomen: Soft diffuse tenderness no rebound tenderness guarding Bowel sounds are present, no mass palpable, no CVA tenderness Skin: Skin warm and dry. Normal skin color. Normal skin turgor. Extremities: No lower extremity edema. No calf tenderness Neuro: Oriented X 3. No motor deficit. Course Course Course Narrative: This is an RME: Additional HPI, ROS, PE not included below will be deferred to primary provider. 37 year old , with a history of hypothyroidism, hypertension, cyclical vomiting syndrome presenting to the emergency department today with nausea and vomiting x 2 days. Started weight loss program on friday only new supplement is vitamin-D. Has been hospitalized for intractable vomiting multiple times. +diarrhea and harden stool. No abdominal pain. Afebrile but tachycardic at 116. Plan: labs, zofran Medications Administered Discontinued Medications Generic Name Dose Route Start Last Admin Trade Name Freq PRN Reason Stop Dose Admin Sodium Chloride 1,000 mls @ 999 mls/hr 11/05/22 19:22 11/05/22 20:20 Ns IV 11/05/22 20:22 999 mls/hr .Q1H1M ONE Administration Lorazepam 2 mg 11/05/22 19:22 11/05/22 20:20 Lorazepam 2 Mg/Ml Vial IVPUSH 11/05/22 19:23 2 mg ONCE ONE Administration Ondansetron HCl 4 mg 11/05/22 12:50 11/05/22 12:53 Ondansetron Odt 4 Mg Tab.Eris CHRISTIANOINGU 11/05/22 12:51 4 mg ONCE ONE Administration Ondansetron HCl 4 mg 11/05/22 23:00 11/05/22 23:46 Ondansetron Hcl 4 Mg/2 Ml Vial IVPUSH 11/05/22 23:01 4 mg ONCE ONE Administration Medical Decision Making Medical Decision Making [facility] Narrative: Patient with frequent vomiting/cyclic deep times came here with similar complaints in the past with frequent ED visits, also has history of anxiety not taking any medication felt better after Ativan discharge patient home on Ativan advised to continue Haldol Differential Diagnosis Differential Diagnoses: The differential diagnosis associated with the presentation includes Cyclic vomiting/acute gastritis Lab Data [facility] Lab Attestation statement: I reviewed the patient's lab results. 11/05/22 13:01 11/05/22 13:01 Labs: Lab Results 11/05/22 Range/Units 13:01 WBC 15.8 H (4.8-10.8) X10*3/uL RBC 4.74 (4.20-5.50) X10*6/uL Hgb 13.9 (12.0-16.0) g/dl Hct 40.9 (37.0-47.0) % MCV 86.3 (80.0-98.0) fL MCH 29.3 (27.0-33.0) pg MCHC 34.0 (31.0-35.0) g/dl RDW 13.4 (11.0-16.0) % Plt Count 258 (160-400) X10*3/uL MPV 10.8 (9.4-12.3) fL Immature Gran % (Auto) 0.6 H (0.0-0.4) % Neut % (Auto) 84.2 H (45-73) % Lymph % (Auto) 9.1 L (20-40) % Morton % (Auto) 4.9 (2-11) % Eos % (Auto) 0.7 (0-4) % Baso % (Auto) 0.5 (0-2) % Lymph # (Auto) 1.4 (1.2-4.9) X10*3/uL Morton # (Auto) 0.8 (0.1-1.2) X10*3/uL Eos # (Auto) 0.1 (0.0-0.4) X10*3/uL Baso # (Auto) 0.1 (0.0-0.2) X10*3/uL Abs Immat Gran (auto) 0.10 H (0.00-0.03) X10*3/uL Absolute Neuts (auto) 13.3 H (2.0-8.3) x10*3/uL Absolute Nucleated RBC 0.000 (0.0-0.012) X10*3/uL Nucleated RBC % (auto) 0.0 (0.0-0.2) /100WBC Sodium 134 L (135-145) mmol/L Potassium 4.4 (3.3-5.1) mmol/L Chloride 99 (96-108) mmol/L Carbon Dioxide 23 (22-29) mmol/L Anion Gap 16 (12-20) BUN 16 (9-16) mg/dL Creatinine 0.82 (0.5-1.4) mg/dL Estim Creat Clear Calc 154.4 Estimated GFR > 60 Random Glucose 124 H (60-115) mg/dL Lactic Acid 1.3 (0.5-2.0) mmol/L Calcium 10.1 (8.4-10.2) mg/dL Magnesium 1.7 (1.6-2.6) mg/dL Total Bilirubin 0.5 (0.0-1.0) mg/dL Direct Bilirubin 0.3 (0.0-0.5) mg/dL AST 81 H (5-31) U/L ALT 122 H (0-31) U/L Alkaline Phosphatase 94 (39-117) U/L Total Protein 8.5 H (6.5-8.0) g/dL Albumin 4.6 (3.5-5.0) g/dL Lipase 11 (8-78) U/L Discharge Plan Discharge Clinical Impression: Cyclic vomiting syndrome Patient Disposition: Home, Self-Care Instructions: Cyclic Vomiting Syndrome (ED) Additional Instructions: Continue medication for vomiting Ativan for anxiety and sleep Drink plenty of fluids Prescriptions: New lorazepam [Ativan] 1 mg tablet 1 mg PO BID PRN (Reason: anxiety/sleep) Qty: 20 0RF No Action cholecalciferol (vitamin D3) 25 mcg (1,000 unit) capsule 25 mcg PO DAILY Qty: 30 5RF hydrochlorothiazide 50 mg tablet 50 mg PO DAILY amlodipine 10 mg tablet 10 mg PO DAILY pantoprazole 40 mg tablet,delayed release (DR/EC) 40 mg PO DAILY@0630 PRN (Reason: Acid Reflux) levothyroxine 150 mcg tablet 150 mcg PO DAILY@0600 lisinopril 40 mg tablet 40 mg PO DAILY ondansetron 4 mg tablet,disintegrating 4 mg PO Q8H PRN (Reason: nausea/vomiting) haloperidol 5 mg tablet 2.5 mg PO TID Qty: 20 0RF
[2022-11-05] MEDS: Ondansetron ODT 4 MG TAB.RAPDIS TRANSLINGU (12:53)
[2022-11-05 13:05] LABS: MANUAL DIFF FLAG NO
[2022-11-05 13:06] LABS: Basophils Absolute Auto 0.1 X10*3/uL (0.0-0.2); Basophils Percent Auto 0.5 % (0-2); Eosinophils Absolute Auto 0.1 X10*3/uL (0.0-0.4); Eosinophils Percent Auto 0.7 % (0-4); Hematocrit 40.9 % (37.0-47.0); Hemoglobin 13.9 g/dl (12.0-16.0); Imm Gran Pct Auto 0.6 % (0.0-0.4); Lymphocytes Absolute Auto 1.4 X10*3/uL (1.2-4.9); Lymphocytes Percent Auto 9.1 % (20-40); Mean Corpuscular Hemoglobin 29.3 pg (27.0-33.0); Mean Corpuscular Volume 86.3 fL (80.0-98.0); Mean Platelet Volume 10.8 fL (9.4-12.3); Monocytes Absolute Auto 0.8 X10*3/uL (0.1-1.2); Monocytes Percent Auto 4.9 % (2-11); Neutrophils Absolute Auto 13.3 x10*3/uL (2.0-8.3); Neutrophils Percent Auto 84.2 % (45-73); Platelet Count 258 X10*3/uL (160-400); Red Blood Count 4.74 X10*6/uL (4.20-5.50); Red Cell Distribution Width 13.4 % (11.0-16.0); White Blood Count 15.8 X10*3/uL (4.8-10.8)
[2022-11-05 13:22] LABS: Lactic Acid 1.3 mmol/L (0.5-2.0)
[2022-11-05 13:26] LABS: Alanine Aminotransferase 122 U/L (0-31); Albumin Level 4.6 g/dL (3.5-5.0); Alkaline Phosphatase 94 U/L (39-117); Anion Gap 16 (12-20); Aspartate Amino Transferase 81 U/L (5-31); Bilirubin Direct 0.3 mg/dL (0.0-0.5); Bilirubin Total 0.5 mg/dL (0.0-1.0); Blood Urea Nitrogen 16 mg/dL (9-16); Calcium 10.1 mg/dL (8.4-10.2); Carbon Dioxide 23 mmol/L (22-29); Chloride 99 mmol/L (96-108); Creatinine Clr Calc Pharmacy 154.4; Estimated Glomerular Filt Rate > 60; Glucose Random 124 mg/dL (60-115); Lipase 11 U/L (8-78); Magnesium 1.7 mg/dL (1.6-2.6); Potassium 4.4 mmol/L (3.3-5.1); Sodium 134 mmol/L (135-145); Total Protein 8.5 g/dL (6.5-8.0)
[2022-11-05 18:50] VITALS: BP 157/67; PULSE 105; RESP 18; TEMP 36.7; O2SAT 98
[2022-11-05 19:10] VITALS: BP 151/67; PULSE 97; RESP 14; TEMP 36.9; O2SAT 94
[2022-11-05] MEDS: 0.9 % Sodium Chloride 1,000 ML 999 ML IV (20:20)
[2022-11-05] MEDS: LORazepam 2 MG/ML VIAL IVPUSH (20:20)
[2022-11-05 21:48] VITALS: BP 138/66; PULSE 112; RESP 18; O2SAT 93
[2022-11-05] MEDS: ondansetron HCL 4 MG/2 ML VIAL IVPUSH (23:46)
== END 2022-11-06 00:07 | disposition home or self-care (01) ==
PROVIDERS: Physician Assistant Medical; Emergency Provider Internal Medicine; PCP Pediatrics
DX: R11.15 Cyclical vomiting syndrome unrelated to migraine (principal); I10 Essential (primary) hypertension; K21.9 Gastro-esophageal reflux disease without esophagitis; E66.01 Morbid (severe) obesity due to excess calories; Z68.43 Body mass index [BMI] 50.0-59.9, adult; Z90.49 Acquired absence of other specified parts of digestive tract; Z79.899 Other long term (current) drug therapy
CPT/HCPCS: 36415; 80048; 80076; 83605; 83690; 83735; 85025; 96374; 96375; 99284; J2060; J2405

== ENCOUNTER 2022-11-07 09:45 | Emergency (ER) | payer BC, SELFPAY ==
[2022-11-07 09:55] VITALS: BP 152/76; PULSE 89; RESP 19; TEMP 37.2; O2SAT 99; BMI 57.3
--- NOTE | 2022-11-07 10:11 | MHC.EDTECH ---
Labs collected and sent
[2022-11-07 10:12] LABS: MANUAL DIFF FLAG NO
[2022-11-07 10:15] LABS: Basophils Absolute Auto 0.1 X10*3/uL (0.0-0.2); Basophils Percent Auto 0.7 % (0-2); Eosinophils Absolute Auto 0.2 X10*3/uL (0.0-0.4); Eosinophils Percent Auto 1.1 % (0-4); Hematocrit 38.8 % (37.0-47.0); Hemoglobin 13.1 g/dl (12.0-16.0); Imm Gran Abs Auto 0.12 X10*3/uL (0.00-0.03); Imm Gran Pct Auto 0.9 % (0.0-0.4); Lymphocytes Absolute Auto 1.6 X10*3/uL (1.2-4.9); Lymphocytes Percent Auto 11.4 % (20-40); Mean Corpuscular HGB Conc 33.8 g/dl (31.0-35.0); Mean Corpuscular Hemoglobin 29.2 pg (27.0-33.0); Mean Corpuscular Volume 86.6 fL (80.0-98.0); Mean Platelet Volume 10.5 fL (9.4-12.3); Monocytes Absolute Auto 0.9 X10*3/uL (0.1-1.2); Monocytes Percent Auto 6.9 % (2-11); Neutrophils Absolute Auto 10.8 x10*3/uL (2.0-8.3); Platelet Count 219 X10*3/uL (160-400); Red Blood Count 4.48 X10*6/uL (4.20-5.50); Red Cell Distribution Width 13.6 % (11.0-16.0); White Blood Count 13.6 X10*3/uL (4.8-10.8)
[2022-11-07 10:31] LABS: Alanine Aminotransferase 134 U/L (0-31); Albumin Level 4.4 g/dL (3.5-5.0); Alkaline Phosphatase 99 U/L (39-117); Anion Gap 11 (12-20); Aspartate Amino Transferase 78 U/L (5-31); Bilirubin Direct 0.2 mg/dL (0.0-0.5); Bilirubin Total 0.5 mg/dL (0.0-1.0); Blood Urea Nitrogen 13 mg/dL (9-16); Calcium 9.6 mg/dL (8.4-10.2); Carbon Dioxide 24 mmol/L (22-29); Chloride 101 mmol/L (96-108); Estimated Glomerular Filt Rate > 60; Glucose Random 114 mg/dL (60-115); Lipase 9 U/L (8-78); Potassium 3.8 mmol/L (3.3-5.1); Sodium 132 mmol/L (135-145)
[2022-11-07 16:08] VITALS: BP 157/79; PULSE 100; RESP 16; TEMP 36.9; O2SAT 96
--- NOTE | 2022-11-07 16:14 | ED_ITS ---
HPI - Nausea/Vomiting/Diarrhea General Chief complaint: Nausea/Vomiting/Diarrhea Stated complaint: vomiting Time Seen by Provider: 11/07/22 16:14 Source: patient Mode of arrival: ambulatory Limitations: no limitations History of Present Illness HPI Narrative: 37-year-old female presents with intractable nausea vomiting. Symptoms started in March. Her symptoms have been constant. There is no clear exacerbating features. It is associated with yellow vomitus, no blood, coffee-grounds or streaks of blood. She denies any melena. Last bowel movement was yesterday. She does have associated burning epigastric abdominal pain that is constant. Does not radiate. She has been on acid reducing medications which have helped that burning sensation but ran out recently. She has tried Reglan at home without improvement. Additionally, she has had Haldol which has been effective for symptoms but then she developed stiffness in her muscles and had to stop the medication. Patient reports having had multiple imaging studies, upper and lower endoscopy, cholecystectomy and has also been found to have an ovarian cyst which is thought to be possible cause of her symptoms. There is so neck considering doing a pituitary scan to rule out a pituitary micro or macroadenoma. She is unaware of there have been any specific endocrine related studies performed on her. Related Data Home Medications Medication Instructions Recorded Confirmed amlodipine 10 mg tablet 10 mg PO DAILY 09/24/22 09/24/22 hydrochlorothiazide 50 mg tablet 50 mg PO DAILY 09/24/22 09/24/22 levothyroxine 150 mcg tablet 150 mcg PO DAILY@0600 09/24/22 09/24/22 lisinopril 40 mg tablet 40 mg PO DAILY 09/24/22 09/24/22 ondansetron 4 mg disintegrating 4 mg PO Q8H PRN nausea/vomiting 09/24/22 09/24/22 tablet pantoprazole 40 mg tablet,delayed 40 mg PO DAILY@0630 PRN Acid Reflux 09/24/22 09/24/22 release Previous Rx's Medication Instructions Recorded haloperidol 5 mg tablet 2.5 mg (1/2 x 5 mg) PO TID #20 tabs 09/26/22 cholecalciferol (vitamin D3) 25 25 mcg PO DAILY #30 caps 11/01/22 mcg (1,000 unit) capsule lorazepam 1 mg tablet (Ativan) 1 mg PO BID PRN anxiety/sleep #20 11/05/22 tabs dicyclomine 20 mg tablet 20 mg PO QID #30 tabs 11/07/22 pantoprazole 40 mg tablet,delayed 40 mg PO DAILY #30 tabs 11/07/22 release fvgbuxtoj-wvmumngim-ypeecdyr-scop 1 tab PO BID #20 tabs 11/07/22 16.2 mg-0.1037 mg-0.0194 mg tablet () trimethobenzamide 300 mg capsule 300 mg PO Q6H PRN nausea and 11/07/22 vomiting #10 caps Allergies Allergy/AdvReac Type Severity Reaction Status Date / Time No Known Allergies Allergy Verified 11/07/22 09:55 Review of Systems 2 Review of Systems: CONSTITUTIONAL: Denies weight loss, fever and chills. HEENT: Denies changes in vision and hearing. RESPIRATORY: Denies SOB and cough. CV: Denies palpitations no CP. GI: + abdominal pain, nausea, vomiting - diarrhea. : Denies dysuria and urinary frequency. MSK: Denies myalgia and joint pain. SKIN: Denies rash and pruritus. NEUROLOGICAL: Denies headache and syncope. PSYCHIATRIC: Denies recent changes in mood. Denies anxiety and depression. All other ROS are negative unless in HPI PMFSH Past Medical History Medical History HTN (hypertension), benign Hepatic steatosis Ovarian cyst Anxiety Morbid obesity GERD (gastroesophageal reflux disease) Hypertension Hypothyroidism Social History Social History Alcohol intake: never Patient Tobacco Use Status: Never used Tobacco Smoked in Last 30 Days: No Use of substances other than those prescribed or required for medical reasons: No Advance Directives: No Advance Directives Information Provided: Yes Patient : No service: No Physical Exam 2 Vital Signs: Vital Signs: Last Vital Signs Temp 98.4 F 11/07/22 20:19 Pulse 104 H 11/07/22 20:19 Resp 18 11/07/22 20:19 BP 131/65 11/07/22 20:19 Pulse Ox 97 11/07/22 20:19 O2 Del Method Room Air 11/07/22 20:19 BMI result Body Mass Index 57.3 GEN: Well developed, no acute distress, alert, oriented HEENT: Normocephalic, atraumatic, normal external ears, nose appears normal, no oropharyngeal edema or exudates Eyes: Normal to appearance Neck: Supple, no lymphadenopathy Respiratory: Talks in complete sentences, no respiratory distress, clear to auscultation bilaterally Cardiovascular: Regular rate and rhythm, no murmurs rubs or gallops Abdomen: Soft, nontender, nondistended, no guarding, no rebound Back: No CVA tenderness Extremities: No clubbing cyanosis or edema Neurologic: No focal neurologic deficits, cranial nerves 2-12 intact, strength is 5/5 bilaterally Skin: No rash Course Course Course Narrative: The workup is complete. Laboratory analysis shows slightly low sodium and elevated white blood cell count. This was discussed with the patient. This was seen previously. Muscle lab work is unremarkable. Patient is feeling much better. She was able tolerate oral intake. At this point, I would hold off on any oral Haldol given the history of side effects. I would recommend trying a promotility medication like dicyclomine or tonic tall. This was prescribed to her on her behalf. Additionally, she has tried multiple antiemetics without affect. We can try ordering tight again. I will make her aware that this does not appear to be on her formulary. Patient may require referral to a tertiary referral center like [facility] or [facility]. This was also discussed with the patient. Medications Administered Discontinued Medications Generic Name Dose Route Start Last Admin Trade Name Freq PRN Reason Stop Dose Admin Al Hydroxide/Mg Hydroxide 30 ml 11/07/22 16:35 11/07/22 16:58 Magnesium Hydrox/Alum Hydrox 30 Ml Oral.Susp PO 11/07/22 16:36 30 ml ONCE ONE Administration Belladonna Alkaloids/Phenobarbital 10 ml 11/07/22 16:35 11/07/22 16:58 Phenobarb/Hyoscy/Atropine/Scop 10 Ml Elixir PO 11/07/22 16:36 10 ml ONCE ONE Administration Diphenhydramine HCl 25 mg 11/07/22 16:34 11/07/22 16:57 Diphenhydramine Hcl 50 Mg/Ml Vial IVPUSH 11/07/22 16:35 25 mg ONCE ONE Administration Famotidine 20 mg 11/07/22 16:34 11/07/22 16:57 Famotidine/Pf 20 Mg/2 Ml Vial IVPUSH 11/07/22 16:35 20 mg ONCE ONE Administration Haloperidol Lactate 5 mg 11/07/22 16:34 11/07/22 16:57 Haloperidol Lactate 5 Mg/Ml Vial IM 11/07/22 16:35 5 mg ONCE ONE Administration Sodium Chloride 2,000 mls @ 999 mls/hr 11/07/22 16:45 11/07/22 18:46 Ns IV 11/07/22 18:45 Infused .Q2H1M BRANDI Infusion Lidocaine HCl 15 ml 11/07/22 16:35 11/07/22 16:58 Lidocaine Hcl Viscous 2 % 15 Ml Solution MUCOUS MEM 11/07/22 16:36 15 ml ONCE ONE Administration Medical Decision Making Medical Decision Making MDM Narrative: Patient presents with intractable nausea vomiting starting since March of this year. She has had significant workup and I have reviewed her Gastroenterology consultation which was done on September 24 of this year. Per report, she has had upper lower endoscopy, multiple CT scans, HIDA scan, status post cholecystectomy, gastric emptying. Differential diagnosis includes IBS, IBD, cyclic vomiting, gastroparesis, ileus, endocrine Plan: Patient is at a significant workup done at [facility]. Her examination does not reveal any surgical concerns. I do not believe any imaging studies would be helpful at this time. I will focus on symptomatic relief. Should something change the interim, will order additional testing. Patient may require hospitalization for intractable symptoms. Differential Diagnosis Differential Diagnoses: The differential diagnosis associated with the presentation includes (See above) Admission/Observation Consideration of admission/observation: Escalation of care including admission/observation considered Lab Data [facility] Lab Attestation statement: I reviewed the patient's lab results. 11/07/22 10:08 11/07/22 10:08 Labs: Lab Results 11/07/22 11/07/22 Range/Units 10:08 20:21 WBC 13.6 H (4.8-10.8) X10*3/uL RBC 4.48 (4.20-5.50) X10*6/uL Hgb 13.1 (12.0-16.0) g/dl Hct 38.8 (37.0-47.0) % MCV 86.6 (80.0-98.0) fL MCH 29.2 (27.0-33.0) pg MCHC 33.8 (31.0-35.0) g/dl RDW 13.6 (11.0-16.0) % Plt Count 219 (160-400) X10*3/uL MPV 10.5 (9.4-12.3) fL Immature Gran % (Auto) 0.9 H (0.0-0.4) % Neut % (Auto) 79.0 H (45-73) % Lymph % (Auto) 11.4 L (20-40) % [place] % (Auto) 6.9 (2-11) % Eos % (Auto) 1.1 (0-4) % Baso % (Auto) 0.7 (0-2) % Lymph # (Auto) 1.6 (1.2-4.9) X10*3/uL [place] # (Auto) 0.9 (0.1-1.2) X10*3/uL Eos # (Auto) 0.2 (0.0-0.4) X10*3/uL Baso # (Auto) 0.1 (0.0-0.2) X10*3/uL Abs Immat Gran (auto) 0.12 H (0.00-0.03) X10*3/uL Absolute Neuts (auto) 10.8 H (2.0-8.3) x10*3/uL Absolute Nucleated RBC 0.000 (0.0-0.012) X10*3/uL Nucleated RBC % (auto) 0.0 (0.0-0.2) /100WBC Sodium 132 L (135-145) mmol/L Potassium 3.8 (3.3-5.1) mmol/L Chloride 101 (96-108) mmol/L Carbon Dioxide 24 (22-29) mmol/L Anion Gap 11 L (12-20) BUN 13 (9-16) mg/dL Creatinine 0.74 (0.5-1.4) mg/dL Estim Creat Clear Calc 172.0 Estimated GFR > 60 Random Glucose 114 (60-115) mg/dL Calcium 9.6 (8.4-10.2) mg/dL Total Bilirubin 0.5 (0.0-1.0) mg/dL Direct Bilirubin 0.2 (0.0-0.5) mg/dL AST 78 H (5-31) U/L ALT 134 H (0-31) U/L Alkaline Phosphatase 99 (39-117) U/L Total Protein 8.0 (6.5-8.0) g/dL Albumin 4.4 (3.5-5.0) g/dL Lipase 9 (8-78) U/L Urine Color Yellow Urine Appearance Clear Urine pH 6.5 (5.0-9.0) Ur Specific [place] 1.020 (1.005-1.025) Urine Protein Negative (Neg-Trace) mg/dL Urine Glucose (UA) Negative (Negative) mg/dL Urine Ketones 15 (Negative) mg/dL Urine Blood Negative (Negative) Urine Nitrite Negative (Negative) Ur Leukocyte Esterase Negative (Negative) Urine Test NEGATIVE (NEGATIVE) Independent Historian Clinical information obtained from an independent historian. History obtained from or confirmed by: Friend External Record Review External record reviewed: Inpatient record and Other (GI consultation) Prescription Management I considered prescription management with: Pain Medication Chronic Conditions Patient?s care impacted by: Hypertension Discharge Plan Discharge Clinical Impression: Intractable vomiting with nausea, Leukocytosis, Acute hyponatremia Patient Disposition: Still a Patient Instructions: Hyponatremia (ED), Acute Nausea and Vomiting (ED), Leukocytosis (ED) Prescriptions: New dicyclomine 20 mg tablet 20 mg PO QID Qty: 30 0RF Rx Instructions: 30 min before eating, 30 min before bed ejlmarmsx-imfanf-izotperd-scop [] 16.2-0.1037 -0.0194 mg tablet 1 tab PO BID Qty: 20 0RF trimethobenzamide 300 mg capsule 300 mg PO Q6H PRN (Reason: nausea and vomiting) Qty: 10 0RF pantoprazole 40 mg tablet,delayed release (DR/EC) 40 mg PO DAILY Qty: 30 0RF No Action cholecalciferol (vitamin D3) 25 mcg (1,000 unit) capsule 25 mcg PO DAILY Qty: 30 5RF hydrochlorothiazide 50 mg tablet 50 mg PO DAILY amlodipine 10 mg tablet 10 mg PO DAILY pantoprazole 40 mg tablet,delayed release (DR/EC) 40 mg PO DAILY@0630 PRN (Reason: Acid Reflux) levothyroxine 150 mcg tablet 150 mcg PO DAILY@0600 lisinopril 40 mg tablet 40 mg PO DAILY ondansetron 4 mg tablet,disintegrating 4 mg PO Q8H PRN (Reason: nausea/vomiting) haloperidol 5 mg tablet 2.5 mg PO TID Qty: 20 0RF lorazepam [Ativan] 1 mg tablet 1 mg PO BID PRN (Reason: anxiety/sleep) Qty: 20 0RF Referrals: Teresa Alvarez MD [Primary Care Provider] -
[2022-11-07] MEDS: 0.9 % Sodium Chloride 2,000 ML 999 ML IV (16:55)
[2022-11-07] MEDS: Famotidine/PF 20 MG/2 ML VIAL IVPUSH (16:57)
[2022-11-07] MEDS: Haloperidol Lactate 5 MG/ML VIAL IM (16:57)
[2022-11-07] MEDS: diphenhydrAMINE HCL 50 MG/ML VIAL 25 MG IVPUSH (16:57)
[2022-11-07] MEDS: PHENobarb/Hyoscy/Atropine/Scop 10 ML ELIXIR PO (16:58)
[2022-11-07] MEDS: Lidocaine HCl Viscous 2 % 15 ML SOLUTION MUCOUS MEM (16:58)
[2022-11-07] MEDS: Magnesium Hydrox/Alum Hydrox 30 ML ORAL.SUSP PO (16:58)
--- NOTE | 2022-11-07 17:39 | PC.NURSE ---
pt walk in from the waiting room, brought to room 6H, transitioned to room 7. pt has been having episodes of N/V since February, seen several times at [facility] receiving CT and other imaging. [place] [facility] [place]. pt N/V previously managed well with IV Reglan and fluids, last time pt was here she did not receive relief from reglan last time she was here. pt was given IM Haldol and benadryl which she reports was helpful, she was d/c on the Haldol but had to stop it d/t tardiv diskinesia sx. pt recently seen by PCP who recommended follow up MRI of pituitary glad as pt reports that she has noticed her N/V sx seem to coincide with her period. pt here for maintenance meds in the mean time as her n/v has been uncontrolled since stopping the haldol over a week ago.
[2022-11-07 20:19] VITALS: BP 131/65; PULSE 104; RESP 18; TEMP 36.9; O2SAT 97
[2022-11-07 20:28] LABS: Appearance Urine Clear; Color Urine Yellow; Glucose Urine UA Negative (Negative); Leukocyte Esterase Urine Negative (Negative); Nitrite Urine Negative (Negative); PH 6.5 (5.0-9.0); Urine Blood Negative (Negative); Urine Ketones 15 mg/dL (Negative); Urine Protein Negative (Neg-Trace)
[2022-11-07 20:30] LABS: UPreg QC Valid YES; Urine Pregnancy NEGATIVE (NEGATIVE)
== END 2022-11-07 21:10 | disposition still patient (30) ==
PROVIDERS: Emergency Provider Emergency Medicine; PCP Pediatrics
DX: R11.2 Nausea with vomiting, unspecified (principal); D72.829 Elevated white blood cell count, unspecified; E87.1 Hypo-osmolality and hyponatremia; I10 Essential (primary) hypertension; E66.01 Morbid (severe) obesity due to excess calories; Z68.43 Body mass index [BMI] 50.0-59.9, adult; Z79.899 Other long term (current) drug therapy
CPT/HCPCS: 36415; 80048; 80076; 81003; 81025; 83690; 85025; 96361; 96372; 96374; 96375; 99284; 99285; J1200

== ENCOUNTER → 2022-12-05 16:01 | Outpatient (BNVA) | payer BC, SELFPAY | PROVIDERS: PCP Pediatrics; Visit Provider Dietitian, Registered | DX: E66.01 Morbid (severe) obesity due to excess calories (principal); Z71.3 Dietary counseling and surveillance | CPT/HCPCS: 97803 ==

== ENCOUNTER 2022-12-09 16:18 | Outpatient (AMB) | payer BC, SELFPAY ==
--- NOTE | 2022-12-09 15:59 | A.OFFVIS_ITS ---
Intake VS Expanded 12/09/22 16:27 BP 149/69 H Blood Pressure Location Rt brachial Blood Pressure Position Sitting Pulse 88 Pulse Source Pulse Oximeter Temp 97.5 F Temperature Source Temporal Artery Scan Pulse Oximetry 98 Oxygen Delivery Method Room Air Height 5 ft 8 in Weight 360 lb 12.8 oz BMI 54.9 Body Fat % 49.3 Body Fat Mass 178.0 Fat Free Mass 182.8 Visceral Fat Rating 18.0 Body Water % 36.2 Body Water Mass 130.8 Muscle Mass/Score 173.6 Basal Metabolic Rate/Score 2,678 Intake Visit Reasons: (OV) F/U SWL Allergies No Known Allergies Allergy (Verified 12/09/22 16:29) HPI HPI Comments History of Present Illness Details This is the patients second appt for SWL. Starting weight was 389.1lbs on 10/31/22. TBWL is 28.3 lbs or 7.3 % TBWL. Stopped pantoprazole - not needed. Tried Atkins and Slim and did not like either of these. Meal plan: Wakes up at 6:30am 8:30 - Farilife shake - 30 - 45 minutes 11:30 - bar Quest 1pm - shake 3 pm - bar 5- 6pm - half plate of vegetables and singer lf plate vegetables - sauteed in butter 1 hour later - apple. Water, Diet Pepsi until 1pm. Or 3 per day. Snacks on raw vegetables during the day Exercise plan: Team body project sitting videos - modifies to stand sometimes - Pre op work up completed as follows: SWL classes - 09/24 appts -follow up 12/10 appts -follow up 01/08 H pylori - not done yet - will schedule Labs- vit A and D deficiencies CXR -normal ECG Normal sinus rhythm T wave abnormality, consider inferior ischemia Abnormal ECG When compared with ECG of 24-SEP-2022 09:24, T wave inversion more evident in Inferior leads Card stress test and ECHO - 12/13 ULS and UGI - 12/13 and 01/16 Contraception- none needed PFSH Medical History HTN (hypertension), benign Hepatic steatosis Ovarian cyst Anxiety Morbid obesity GERD (gastroesophageal reflux disease) Hypertension Hypothyroidism Social History Alcohol intake: never Patient Tobacco Use Status: Never used Tobacco service: No Assessment & Plan Assessment & Plan (1) Morbid obesity: Code(s): E66.01 - Morbid (severe) obesity due to excess calories Plan: Pt has had a good start with 7.3% weight loss, still has many changes to make before being ready for surgery and in fact is not sure that she wants bariatric surgery. We talked today aobuut examining the reasons that she eats. has follow ups with Julia. Glenna 12/13, all appts reviewed. Meal plan changes Switch to Pre protein powder per Dr Aranda with water Measure food - 12 fork fulls each of protein and vegetables. Apple with dinner Stop diet Pepsi at night. Exercise - needs routine of , , , and Friday TBP. Next appt with me in 3 weeks. Patient is morbidly obese and is not considered stable at this time. I spent 30 minutes in total with patient reviewing/updating records, examining the patient and counseling the patient on weight management as detailed above. Coding Level of Care Code Est Pt Level 4 (99770) Diagnoses Morbid obesity E66.01
[2022-12-09 16:27] VITALS: BP 149/69; PULSE 88; TEMP 36.4; O2SAT 98; BMI 54.9
== END 2022-12-09 17:19 | disposition home or self-care (01) ==
PROVIDERS: PCP Pediatrics; Visit Provider Physician Assistant
DX: E66.01 Morbid (severe) obesity due to excess calories (principal); Z68.43 Body mass index [BMI] 50.0-59.9, adult
CPT/HCPCS: 99214

== ENCOUNTER → 2022-12-09 16:18 | Outpatient (BNVA) | payer BC, SELFPAY | PROVIDERS: PCP Pediatrics; Visit Provider Physician Assistant ==

== ENCOUNTER 2022-12-13 | Outpatient (REF) | payer BC, SELFPAY ==
[2022-12-18 17:15] LABS: H Pylori Breath Test Negative (Negative)
== END 2022-12-13 00:01 | disposition home or self-care (01) ==
LOC: CF
PROVIDERS: PCP Pediatrics; Visit Provider Physician Assistant
DX: Z01.818 Encounter for other preprocedural examination (principal); E66.01 Morbid (severe) obesity due to excess calories; K21.9 Gastro-esophageal reflux disease without esophagitis
CPT/HCPCS: 83013; 99211

== ENCOUNTER → 2022-12-13 07:55 | Outpatient (REF) | payer BC, SELFPAY ==
--- NOTE | ~2022-12-13 | NM_ITS ---
Lexiscan Myocardial perfusion study Indication: Preoperative cardiovascular evaluation Technique: The patient was brought in for a Lexiscan perfusion study on 12/13/2022 and was injected 0.4 mg of Lexiscan intravenously. Within a minute of this injection 45 mCi of sestamibi was given intravenously. Images were obtained using the SPECT gamma camera interlaced with the gating device. Images were obtained in supine position. Resting perfusion study was performed on 12/17/2022. Patient was administered 45 mCi of sestamibi intravenously at rest. Images were then obtained in supine position. Images were processed with the software and compared side to side in short axis, horizontal long axis and vertical long axis views. Total DLP 205mGy-cm. Findings: Raw acquisition reviewed. The stress perfusion study showed diminished tracer uptake along the anterolateral wall. With CT attenuation correction, there is improved tracer uptake that is suggestive of soft tissue attenuation artifact. The gated study shows normal LV systolic function with calculated LVEF of 63%. LV cavity is normal in size. The gated study shows normal wall thickening and contraction of segments. Resting study shows no significant perfusion abnormality. Gating at rest reveals normal wall motion with ejection fraction at 41%-visually appears in normal range. The findings are consistent with reversible anterolateral perfusion defect, likely from soft tissue attenuation artifact. NM/NM cardiolite stress test Impression: 1. Myocardial perfusion imaging study shows no evidence of any ischemia or infarction. Likely normal perfusion. 2. Gated LVEF is 63% during stress. 3. Transient ischemic dilatation not present. EKG component of the test reported separately.
--- NOTE | 2022-12-13 07:58 | CA_ITS ---
Acquisition Time: 2022-12-13 08:09:56 Total Exercise Time: 00:02:00 Test Indications: MORBID OBESITY Medications: Protocol: LEXISCAN Max HR: 141 BPM 77% of Pred: 181 BPM Max BP: 134/052 mmHG Max Work Load: 1.6 METS Pharmacological stress test with Lexiscan injection, while walking slow on treadmill, without anginal symptoms, without arrythmia, with normotensive response to injecton, with EKG changes that start prior to injection ( during walking) that meet criteria for ischemia: T wave inversions inferiorly and V3-V6 with 0.5- 1mm ST depressions in those leads with slow gradual improvement back to baseline in recovery. Nuclear images pending. Test reviewed with Dr Dean. Referred By: Stephanie Gomez Overread By: SHAHRIAR SCHMITZ
--- NOTE | 2022-12-13 07:58 | CA_ITS ---
Transthoracic Echocardiogram Patient (Last, First, Middle): Lulú Chao A Gender: Female Date of : 1985 Age: 37 Procedure Date: 12/13/2022 Procedure Type: Transthoracic Echocardiogram Location: OP Height: 172.72 cm Weight: 163.3 kg BSA: 2.62 m2 Heart Rate: bpm BP: 120 / 78 mmHg Spikemaking Supervisor: TO Referring MD: Stephanie Gomez PA-C Chiropractic Care: Jose G Dean MD Symptoms: E66.01 - Morbid (severe) obesity due to excess calories Study Quality: Technically Difficult/Contrast ECG Rhythm: Sinus Conclusions: - 1. Technically limited study despite use of contrast agent 2. Normal LV ejection fraction 60-65% with normal filling pattern 3. Limited visualization of cardiac valves with normal cardiac valvular Doppler Findings Procedure Information Contrast agent, definity, is being given per protocol without apparent complications. The study quality is limited by patients body habitus. Left Ventricle The left ventricle was not well visualized. Normal left ventricular cavity size. The left ventricular systolic function is normal. The visually estimated ejection fraction is between 60-65%. Spectral Doppler is indicative of a normal filling pattern. Right Ventricle The right ventricle was not well visualized. Atria The left atrium was not well visualized. Interatrial shunt cannot be excluded. The right atrium was not well visualized. Aortic Valve The aortic valve was not well visualized. There is no aortic valve stenosis. There is no aortic valve regurgitation. Mitral Valve The mitral valve was not well visualized. There is no mitral valve stenosis. Pulmonic Valve The pulmonic valve was not well visualized. Tricuspid Valve The tricuspid valve was not well visualized. Tricuspid regurgitation envelope is inadequate for calculation of right ventricular systolic pressure. Great Vessels The aorta was not well visualized. The pulmonary artery was not well visualized. Venous The inferior vena cava was not well visualized. Pericardium/Pleural The pericardium was not well visualized. Prior Study Comparison No prior study available for comparison. Measurements 2D Linear Measurements IVSd: 1.26 0.6-0.9/0.6-1.0 cm LVIDd: 5.24 3.9-5.3/4.2-5.9 cm LVIDd Index: 2.00 2.4-3.2/2.2-3.1 cm/m2 LVIDs: 3.53 2.0-3.6 cm LVPWd: 1.04 0.7-1.1 cm LA Diam: 4.30 2.7-3.8/3.0-4.0 cm LAIDs Index: 1.64 1.5-2.3 cm/m2 LV Mass: 296.17 67-162/88-224 g LV Mass Index: 113.04 43-95/49-115 g/m2 LVOT Diam: 2.20 3.0+(-)1.3 cm Mitral Valve MV Pk E: 0.96 MV PK A: 0.45 MV Decel Time: 217.00 E/A: 2.10 E'Lateral: 9.79 E'Medial: 10.40 E/E' Med: 9.20 E/E' Lat: 9.80 PHT: 64.00 MVA PHT: 3.44 Decel Kent: 4.40 Aortic Valve AoV Pk Carter: 1.18 AoV Mn Carter: 0.81 AoV VTI: 0.23 AoV Pk Grad: 6.00 Aov Mn Grad: 3.00 RADHA Cont.VTI: 3.08 LVOT LVOT Pk Carter: 0.91 LVOT Mn Carter: 0.58 LVOT VTI: 0.19 LVOT Pk Grad: 3.00 LVOT Mn Grad: 2.00 LVOT Diam: 2.20 LVOT Area: 3.80 Diastolic Function MV Pk E: 0.96 MV Pk A: 0.45 E/A: 2.10 E'Medial: 10.40 E/E' Med: 9.20 E' Laterial: 9.79 E/E' Lat: 9.80 Right Ventricle TAPSE (mm): 28.20 TVS' Carter: 17.80 Tricuspid Valve RA Press: 3.00 Great Vessels Aorta Sinus of Valsalva: 2.89 2.0-3.5 cm Ao Asc: 3.20 2.1-3.4 cm Updated in Other Vendor System with Status of Final Jose G Dean MD electronically signed on 12/14/2022 11:03:47 AM with status of Final
== END ==
LOC: HO.CARD 07:55
PROVIDERS: PCP Pediatrics; Visit Provider Physician Assistant
DX: Z01.818 Encounter for other preprocedural examination (principal); E66.01 Morbid (severe) obesity due to excess calories; R94.31 Abnormal electrocardiogram [ECG] [EKG]; E03.9 Hypothyroidism, unspecified; I10 Essential (primary) hypertension; K21.9 Gastro-esophageal reflux disease without esophagitis
CPT/HCPCS: 78452; 93017; 93306; A9500; J0280; J2785; Q9957

== ENCOUNTER → 2022-12-13 07:58 | Outpatient (BNV) | payer BC, SELFPAY | PROVIDERS: PCP Pediatrics; Visit Provider Nurse Practitioner Family | DX: R94.31 Abnormal electrocardiogram [ECG] [EKG] (principal); Z01.818 Encounter for other preprocedural examination; E66.01 Morbid (severe) obesity due to excess calories | CPT/HCPCS: 78452; 93016; 93018; 93306 ==

== ENCOUNTER 2022-12-17 08:30 | Outpatient (AMB) | payer BC, SELFPAY ==
[2022-12-17 08:02] VITALS: BMI 55.8
--- NOTE | 2022-12-17 08:02 | MHC.OFFVISWM ---
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 They were last seen in the office on 12/09/22, recorded weight at that time was 360.8 pounds, with a BMI of 54.9. Today's weight is 366.8 pounds and BMI is 55.8. There has been a weight loss of 22.4 pounds since initiating the surgical weight loss program on 10/31/22 with a total body weight loss of 5.7 %. Pre op work up completed as follows: SWL classes:? 02/24 BH appts: 12/31/22 ? ? RD appts: f/u 01/08/23 Labs: 11/01/22-low A, D H. pylori: n1= CXR: 11/01/22-nad EK11/01/22-T wave abnl consider inf ischemia. ECHO-12/13/22-limited study, EF 60-65%, Stress test 12/13/22 Positive T wave inversion interiorly w ST depression ABD U/S: 12/13/22 UGI: 01/16/23 The patient reports that since last visit, she has had a lack of discipline and did not like being reminded of her childhood trauma. The patient does have a body composition scale. She has not discussed her weight loss plan with her family and her 's mother has not been supportive in the past. She has battling vomiting for 2-3 days once or twice monthly. This has been since March. The patient states that she is somewhat overwhelmed by the stressors that are occurring in her life. She has started a new pathway in school and feels as though at this time she is unable to commit to the surgical weight loss program. Patient is going to withdrawal from the program at this time but wishes to call when she is ready and has less stress in her life. She was encouraged to absolutely call the office when she feels as though the time is right for her and we will gladly see her back at that time. Until then, she was encouraged to take the information she has learned and the recommendations that have been given to her to improve her health and weight loss. She appreciated that and states that she will do so. Regarding her abnormal EKG and stress test, she is scheduled for the nuclear portions tomorrow and once that data is known, we will call her with any further recommendations. She continues to try to adhere to the previous meal plan given to her by my colleague, Stephanie, 2 shakes and a protein bar and a meal. She was additionally encouraged to increase her exercise and to be as consistent as possible, broadly speaking. She will continue the exercise plan that was given to her at her last visit. [facility] Medical History HTN (hypertension), benign Hepatic steatosis Ovarian cyst Anxiety Morbid obesity GERD (gastroesophageal reflux disease) Hypertension Hypothyroidism Social History Alcohol intake: never Patient Tobacco Use Status: Never used Tobacco service: No Assessment & Plan Assessment & Plan (1) Morbid obesity: Code(s): E66.01 - Morbid (severe) obesity due to excess calories Plan: Patient is going to withdrawal from the program at this time. She may return to the practice at any time in the future when she is ready. (2) Abnormal ECG: Code(s): R94.31 - Abnormal electrocardiogram [ECG] [EKG] Plan: Nuclear portion of abnormal stress test pending. Further recommendations based upon results. Telehealth Telehealth Location of provider rendering services: practice address Location of patient: other Patient Identification confirmed using: Name, : Yes Telehealth method: video Patient verbally consented to treatment: Yes Patient verbally consented to billing insurance company: Yes Patient informed of any privacy concerns related to visit: Yes Minutes spent on Phone/Video with Pt.: 20 Coding Level of Care Code Tele Est Pt Level 3 (54356) Diagnoses Morbid obesity E66.01 Abnormal ECG R94.31 Time Spent (min) 25
== END 2022-12-17 09:38 | disposition home or self-care (01) ==
LOC: HO.HBS 09:34
PROVIDERS: PCP Pediatrics; Visit Provider Physician Assistant Surgical
DX: E66.01 Morbid (severe) obesity due to excess calories (principal); Z68.43 Body mass index [BMI] 50.0-59.9, adult; R94.31 Abnormal electrocardiogram [ECG] [EKG]
CPT/HCPCS: 99213

== ENCOUNTER → 2022-12-17 08:30 | Outpatient (BNVA) | payer BC, SELFPAY | PROVIDERS: PCP Pediatrics; Visit Provider Physician Assistant Surgical ==

== ENCOUNTER 2023-02-04 05:17 | Emergency (ER) | payer BC, SELFPAY ==
[2023-02-04 05:28] VITALS: BP 148/84; PULSE 93; RESP 20; TEMP 36.1; O2SAT 98; BMI 57.8
[2023-02-04 05:49] LABS: MANUAL DIFF FLAG NO
[2023-02-04 06:01] LABS: Basophils Absolute Auto 0.1 X10*3/uL (0.0-0.2); Basophils Percent Auto 0.6 % (0-2); Eosinophils Absolute Auto 0.1 X10*3/uL (0.0-0.4); Eosinophils Percent Auto 0.4 % (0-4); Hematocrit 39.4 % (37.0-47.0); Hemoglobin 13.4 g/dl (12.0-16.0); Imm Gran Abs Auto 0.16 X10*3/uL (0.00-0.03); Mean Corpuscular Hemoglobin 28.1 pg (27.0-33.0); Mean Corpuscular Volume 82.6 fL (80.0-98.0); Mean Platelet Volume 10.4 fL (9.4-12.3); Monocytes Absolute Auto 0.9 X10*3/uL (0.1-1.2); Monocytes Percent Auto 5.5 % (2-11); Neutrophils Absolute Auto 13.1 x10*3/uL (2.0-8.3); Neutrophils Percent Auto 80.5 % (45-73); Platelet Count 309 X10*3/uL (160-400); Red Blood Count 4.77 X10*6/uL (4.20-5.50); Red Cell Distribution Width 13.3 % (11.0-16.0); White Blood Count 16.2 X10*3/uL (4.8-10.8)
[2023-02-04 06:16] LABS: Alanine Aminotransferase 61 U/L (0-31); Albumin Level 4.4 g/dL (3.5-5.0); Alkaline Phosphatase 130 U/L (39-117); Anion Gap 17 (12-20); Aspartate Amino Transferase 32 U/L (5-31); Bilirubin Total 0.5 mg/dL (0.0-1.0); Blood Urea Nitrogen 11 mg/dL (9-16); Calcium 10.1 mg/dL (8.4-10.2); Carbon Dioxide 23 mmol/L (22-29); Chloride 97 mmol/L (96-108); Creatinine Clr Calc Pharmacy 161.9; Estimated Glomerular Filt Rate > 60; Glucose Random 129 mg/dL (60-115); Potassium 3.7 mmol/L (3.3-5.1); Sodium 133 mmol/L (135-145); Total Protein 8.6 g/dL (6.5-8.0)
[2023-02-04 06:23] LABS: HCG Quantitative < 2 mIU/mL
[2023-02-04 06:28] LABS: Influenza A PCR NEGATIVE (Negative); Influenza B PCR NEGATIVE (Negative); Resp Syncy Virus RNA Qual PCR NEGATIVE (Negative); SARS COV2 PCR INHOUSE POSITIVE (Negative)
--- NOTE | 2023-02-04 06:58 | ED_ITS ---
HPI - URI/Sore Throat General Chief Complaint: Upper Respiratory Symptoms Stated Complaint: n/v, unable to eat Time Seen by Provider: 02/04/23 06:57 Source: patient and family Mode of arrival: ambulatory Limitations: no limitations History of Present Illness HPI Narrative: Patient has been sick for about a week, started with sore throat but has myalgias and vomiting. She states she was started on abx for strep throat as her has strep as well. In addition, she has cyclical vomiting and can't stop vomiting MD elicited complaint: fever, sore throat and nasal congestion Onset (ago): week(s) Consistency: constant Severity: moderate Related Data Home Medications Medication Instructions Recorded Confirmed amlodipine 10 mg tablet 10 mg PO DAILY 09/24/22 09/24/22 hydrochlorothiazide 50 mg tablet 50 mg PO DAILY 09/24/22 09/24/22 levothyroxine 150 mcg tablet 150 mcg PO DAILY@0600 09/24/22 09/24/22 lisinopril 40 mg tablet 40 mg PO DAILY 09/24/22 09/24/22 ondansetron 4 mg disintegrating 4 mg PO Q8H PRN nausea/vomiting 09/24/22 09/24/22 tablet pantoprazole 40 mg tablet,delayed 40 mg PO DAILY@0630 PRN Acid Reflux 09/24/22 09/24/22 release Previous Rx's Medication Instructions Recorded haloperidol 5 mg tablet 2.5 mg (1/2 x 5 mg) PO TID #20 tabs 09/26/22 cholecalciferol (vitamin D3) 25 25 mcg PO DAILY #30 caps 11/01/22 mcg (1,000 unit) capsule lorazepam 1 mg tablet (Ativan) 1 mg PO BID PRN anxiety/sleep #20 11/05/22 tabs dicyclomine 20 mg tablet 20 mg PO QID #30 tabs 11/07/22 pantoprazole 40 mg tablet,delayed 40 mg PO DAILY #30 tabs 11/07/22 release yeaugvupm-xlqwtonxj-coxendho-scop 1 tab PO BID #20 tabs 11/07/22 16.2 mg-0.1037 mg-0.0194 mg tablet () trimethobenzamide 300 mg capsule 300 mg PO Q6H PRN nausea and 11/07/22 vomiting #10 caps vitamin A palmitate 3,000 mcg 6,000 mcg (2 x 3,000 mcg (10,000 11/08/22 (10,000 unit) capsule unit)) PO DAILY #30 caps ondansetron 4 mg disintegrating 4 mg PO Q8H 4 days #12 tabs 02/04/23 tablet Allergies Allergy/AdvReac Type Severity Reaction Status Date / Time No Known Allergies Allergy Verified 12/09/22 16:29 Review of Systems 2 Review of Systems: Yes all other systems are reviewed and are negative Neurologic: Denies Sensory deficit (Neuro) [facility] Past Medical History Medical History HTN (hypertension), benign Hepatic steatosis Ovarian cyst Anxiety Morbid obesity GERD (gastroesophageal reflux disease) Hypertension Hypothyroidism Social History Social History Alcohol intake: never Patient Tobacco Use Status: Never used Tobacco Advance Directives: No Advance Directives Information Provided: No service: No Physical Exam 2 Vital Signs: Vital Signs: Last Vital Signs Temp 97.8 F 02/04/23 07:10 Pulse 95 02/04/23 07:10 Resp 20 02/04/23 07:10 BP 129/76 02/04/23 07:10 Pulse Ox 100 02/04/23 07:10 O2 Del Method Room Air 02/04/23 07:10 BMI result Body Mass Index 57.8 Const: Other: morbid obesity looking older than stated age Nutritional Appearance: obese Orientation/consciousness: oriented to person and patient oriented x3 Limitations: no limitations HEENT: Head: Yes normal to inspection Ears: external ears normal General nose exam: Normal external nose present Mouth: Normal oral and palatal mucosa present and oropharynx normal Throat: Yes posterior oropharynx normal Eyes: General: appearance normal, both eyes and all related structures Neck: Other: supple Neck: Yes normal visual inspection Chest: Chest palpation & inspection: normal inspection of the chest Resp: Auscultation: clear to auscultation bilaterally Cardio: Jugular venous distension: no JVD Rate: regular rate Rhythm: r egular rhythm Heart sounds: S1 normal heart sound present and S2 normal heart sound present GI: Inspection: Yes normal to inspection Palpation (GI): Soft to palpation, nontender and No hepatosplenomegaly present Auscultation: normal bowel sounds : General: Yes no CVA tenderness Back/Spine/Pelvis: Back: no CVA tenderness Skin: General skin exam: no rashes or lesions noted Neuro: General: oriented to person and patient oriented x3 Cranial nerves: Yes CN's II-XII intact bilaterally Motor exam (neuro): 5/5 motor strength present throughout Sensory Exam: No Sensory deficit (Neuro) Extrem: General: Yes normal to inspection Psych: Appearance: grossly normal Course Reevaluation(s) Reevaluation #1: patient with covid and cyclical vomiting will dc home on zofran Time: 08:01 Medications Administered Generic Name Dose Route Start Last Admin Trade Name Freq PRN Reason Stop Dose Admin Sodium Chloride 1,000 mls @ 999 mls/hr 02/04/23 07:15 02/04/23 08:02 Ns IVCONT 02/04/23 09:15 999 mls/hr .Q1H1M BRANDI Administration Discontinued Medications Generic Name Dose Route Start Last Admin Trade Name Freq PRN Reason Stop Dose Admin Ondansetron HCl 4 mg 02/04/23 07:08 02/04/23 07:20 Ondansetron Hcl 4 Mg/2 Ml Vial IVPUSH 02/04/23 07:09 4 mg ONCE ONE Administration Medical Decision Making Differential Diagnosis Differential Diagnoses: The differential diagnosis associated with the presentation includes (strep, pneumonia, influenza, covid, rsv, cyclical vomiting) Admission/Observation Consideration of admission/observation: Escalation of care including admission/observation considered (upon arrival patient was considered for admission) Lab Data MDM Lab Attestation statement: I reviewed the patient's lab results. (Patient with chronic LFT abnormalities secondary to fatty liver disease) 02/04/23 05:43 02/04/23 05:42 Labs: Lab Results 02/04/23 02/04/23 Range/Units 05:42 05:43 WBC 16.2 H (4.8-10.8) X10*3/uL RBC 4.77 (4.20-5.50) X10*6/uL Hgb 13.4 (12.0-16.0) g/dl Hct 39.4 (37.0-47.0) % MCV 82.6 (80.0-98.0) fL MCH 28.1 (27.0-33.0) pg MCHC 34.0 (31.0-35.0) g/dl RDW 13.3 (11.0-16.0) % Plt Count 309 D (160-400) X10*3/uL MPV 10.4 (9.4-12.3) fL Immature Gran % (Auto) 1.0 H (0.0-0.4) % Neut % (Auto) 80.5 H (45-73) % Lymph % (Auto) 12.0 L (20-40) % [place] % (Auto) 5.5 (2-11) % Eos % (Auto) 0.4 (0-4) % Baso % (Auto) 0.6 (0-2) % Lymph # (Auto) 2.0 (1.2-4.9) X10*3/uL [place] # (Auto) 0.9 (0.1-1.2) X10*3/uL Eos # (Auto) 0.1 (0.0-0.4) X10*3/uL Baso # (Auto) 0.1 (0.0-0.2) X10*3/uL Abs Immat Gran (auto) 0.16 H (0.00-0.03) X10*3/uL Absolute Neuts (auto) 13.1 H (2.0-8.3) x10*3/uL Absolute Nucleated RBC 0.000 (0.0-0.012) X10*3/uL Nucleated RBC % (auto) 0.0 (0.0-0.2) /100WBC Sodium 133 L (135-145) mmol/L Potassium 3.7 (3.3-5.1) mmol/L Chloride 97 (96-108) mmol/L Carbon Dioxide 23 (22-29) mmol/L Anion Gap 17 (12-20) BUN 11 (9-16) mg/dL Creatinine 0.79 (0.5-1.4) mg/dL Estim Creat Clear Calc 161.9 Estimated GFR > 60 Random Glucose 129 H (60-115) mg/dL Calcium 10.1 (8.4-10.2) mg/dL Total Bilirubin 0.5 (0.0-1.0) mg/dL AST 32 H (5-31) U/L ALT 61 H (0-31) U/L Alkaline Phosphatase 130 H (39-117) U/L Total Protein 8.6 H (6.5-8.0) g/dL Albumin 4.4 (3.5-5.0) g/dL Beta HCG, Quant < 2 mIU/mL Influenza Type A (PCR) NEGATIVE (Negative) Influenza Type B (PCR) NEGATIVE (Negative) RSV RNA Qual (PCR) NEGATIVE (Negative) SARS-CoV-2 RNA (RT-PCR) POSITIVE A (Negative) Independent Historian Clinical information obtained from an independent historian. History obtained from or confirmed by: Spouse External Record Review External record reviewed: Outpatient record Tests considered The following testing was considered but not selected: CXR: considered but no hypoxia. clear lungs Chronic Conditions Patient?s care impacted by: Other (obesity, fatty liver disease) Discharge Plan Discharge Clinical Impression: COVID-19, Cyclical vomiting Patient Disposition: Home, Self-Care Instructions: Acute Nausea and Vomiting (ED), COVID-19 (Coronavirus Disease 2019) (ED) Prescriptions: New ondansetron 4 mg tablet,disintegrating 4 mg PO Q8H 4 Days Qty: 12 0RF No Action cholecalciferol (vitamin D3) 25 mcg (1,000 unit) capsule 25 mcg PO DAILY Qty: 30 5RF vitamin A palmitate 3,000 mcg (10,000 unit) capsule 6,000 mcg PO DAILY Qty: 30 0RF hydrochlorothiazide 50 mg tablet 50 mg PO DAILY amlodipine 10 mg tablet 10 mg PO DAILY pantoprazole 40 mg tablet,delayed release (DR/EC) 40 mg PO DAILY@0630 PRN (Reason: Acid Reflux) levothyroxine 150 mcg tablet 150 mcg PO DAILY@0600 lisinopril 40 mg tablet 40 mg PO DAILY ondansetron 4 mg tablet,disintegrating 4 mg PO Q8H PRN (Reason: nausea/vomiting) haloperidol 5 mg tablet 2.5 mg PO TID Qty: 20 0RF dicyclomine 20 mg tablet 20 mg PO QID Qty: 30 0RF Rx Instructions: 30 min before eating, 30 min before bed kpqudtoak-tbutoz-rejhzniz-scop [] 16.2-0.1037 -0.0194 mg tablet 1 tab PO BID Qty: 20 0RF trimethobenzamide 300 mg capsule 300 mg PO Q6H PRN (Reason: nausea and vomiting) Qty: 10 0RF pantoprazole 40 mg tablet,delayed release (DR/EC) 40 mg PO DAILY Qty: 30 0RF lorazepam [Ativan] 1 mg tablet 1 mg PO BID PRN (Reason: anxiety/sleep) Qty: 20 0RF Referrals: Teresa Alvarez MD [Primary Care Provider] - 5 days
[2023-02-04 07:10] VITALS: BP 129/76; PULSE 95; RESP 20; TEMP 36.6; O2SAT 100
[2023-02-04] MEDS: ondansetron HCL 4 MG/2 ML VIAL IVPUSH (07:20)
[2023-02-04] MEDS: 0.9 % Sodium Chloride 1,000 ML 999 ML IVCONT ×2 (07:21→08:02)
[2023-02-04 08:33] VITALS: BP 156/80; PULSE 91; RESP 18; TEMP 36.6; O2SAT 99
== END 2023-02-04 09:06 | disposition home or self-care (01) ==
PROVIDERS: Emergency Medicine; Emergency Provider Emergency Medicine; PCP Pediatrics
DX: U07.1 COVID-19 (principal); M79.10 Myalgia, unspecified site; J02.9 Acute pharyngitis, unspecified; R11.2 Nausea with vomiting, unspecified; R50.9 Fever, unspecified; Z79.899 Other long term (current) drug therapy
CPT/HCPCS: 0241U; 36415; 80053; 84702; 85025; 96361; 96374; 96375; 99284; J2405; J2550

== ENCOUNTER 2023-04-11 10:22 | Emergency (ER) | payer BC, SELFPAY ==
--- NOTE | ~2023-04-11 | CT_ITS ---
EXAMINATION: CT abdomen pelvis w IV con CLINICAL INFORMATION: Nausea abdominal pain COMPARISON: No prior CT available for comparison. TECHNIQUE: Multidetector volumetric imaging was performed from the superior aspect of the liver through the pubic symphysis 100 mL of Omnipaque 350 injected Sagittal and coronal reformatted images were obtained on the technologist's workstation. This CT examination was performed using dose optimization techniques as appropriate, variously including the following: *Automated exposure control *Adjustment of mA and/or kV according to patient size (this includes techniques or standardized protocols for targeted exams where dose is matched to indication/reason for exam; i.e. extremities or head) *Use of iterative reconstruction technique DLP: 1684 mGy-cm FINDINGS: LOWER THORAX: Included lung bases are clear. HEPATOBILIARY: Diffusely hypodense liver suggesting hepatic steatosis. GALLBLADDER: Gallbladder has been resected. SPLEEN: Spleen is normal in size. PANCREAS: No focal mass or ductal dilatation. STOMACH AND GASTROINTESTINAL TRACT: Stomach is grossly unremarkable. There is no bowel distention or thickening. No CT evidence of appendicitis. ADRENALS: No adrenal nodules. KIDNEYS/URETERS: No hydronephrosis, stones or solid mass lesions. URINARY BLADDER: Partially decompressed. PELVIC VISCERA: Fluid-filled cystic structure in the right side of the pelvis most likely of right ovarian origin measure about 4.1 x 4 x 4.7 cm this is likely ovarian follicle. No pelvic adenopathy. No free air or fluid in the pelvis. The rectum and perirectal fat are clear. No lymphadenopathy in the pelvis. PERITONEUM: No free air or fluid. LYMPH NODES: No lymphadenopathy. VASCULAR:Abdominal aorta normal in size, no aneurysm found. BONES, ABDOMINAL WALL AND SOFT TISSUES: Age-appropriate changes of the spine and skeletal system, no destructive osteolytic or osteosclerotic bone lesion found CT/CT abdomen pelvis w IV con IMPRESSION: 1. No CT evidence of acute intra-abdominal process to explain patient's pain symptoms. 2. Fluid-filled cystic structure in the right side of the pelvis most likely of right ovarian origin measure up to 4.7 cm, this is likely a ovarian follicle. Findings are overwhelmingly likely to represent a benign functional cyst. No follow-up imaging recommended. 3. Diffusely hypodense liver suggesting hepatic steatosis. 4. Status post cholecystectomy.
[2023-04-11 10:35] VITALS: BP 144/81; PULSE 86; RESP 17; TEMP 36.6; O2SAT 99; BMI 54.7
[2023-04-11 10:55] LABS: MANUAL DIFF FLAG NO
[2023-04-11 10:59] LABS: Basophils Absolute Auto 0.1 X10*3/uL (0.0-0.2); Basophils Percent Auto 0.5 % (0-2); Eosinophils Absolute Auto 0.2 X10*3/uL (0.0-0.4); Eosinophils Percent Auto 2.2 % (0-4); Hematocrit 38.7 % (37.0-47.0); Hemoglobin 13.3 g/dl (12.0-16.0); Imm Gran Abs Auto 0.07 X10*3/uL (0.00-0.03); Imm Gran Pct Auto 0.6 % (0.0-0.4); Lymphocytes Absolute Auto 1.5 X10*3/uL (1.2-4.9); Lymphocytes Percent Auto 13.5 % (20-40); Mean Corpuscular HGB Conc 34.4 g/dl (31.0-35.0); Mean Corpuscular Hemoglobin 28.9 pg (27.0-33.0); Mean Corpuscular Volume 83.9 fL (80.0-98.0); Mean Platelet Volume 10.4 fL (9.4-12.3); Monocytes Absolute Auto 1.1 X10*3/uL (0.1-1.2); Monocytes Percent Auto 9.9 % (2-11); Neutrophils Absolute Auto 8.1 x10*3/uL (2.0-8.3); Neutrophils Percent Auto 73.3 % (45-73); Platelet Count 226 X10*3/uL (160-400); Red Blood Count 4.61 X10*6/uL (4.20-5.50); Red Cell Distribution Width 14.1 % (11.0-16.0); White Blood Count 11.1 X10*3/uL (4.8-10.8)
--- NOTE | 2023-04-11 11:03 | PC.NURSE ---
vomitting in [facility], states brandon pettit does not work and declined it
[2023-04-11 11:17] LABS: Alanine Aminotransferase 131 U/L (0-31); Albumin Level 4.3 g/dL (3.5-5.0); Alkaline Phosphatase 114 U/L (39-117); Anion Gap 13 (12-20); Aspartate Amino Transferase 62 U/L (5-31); Bilirubin Direct 0.3 mg/dL (0.0-0.5); Bilirubin Total 0.6 mg/dL (0.0-1.0); Blood Urea Nitrogen 6 mg/dL (9-16); Calcium 9.6 mg/dL (8.4-10.2); Carbon Dioxide 25 mmol/L (22-29); Chloride 100 mmol/L (96-108); Creatinine Clr Calc Pharmacy 152.6; Estimated Glomerular Filt Rate > 60; Glucose Random 117 mg/dL (60-115); Lipase 6 U/L (8-78); Potassium 3.5 mmol/L (3.3-5.1); Sodium 134 mmol/L (135-145)
[2023-04-11 11:46] LABS: Influenza A PCR NEGATIVE (Negative); Influenza B PCR NEGATIVE (Negative); Resp Syncy Virus RNA Qual PCR NEGATIVE (Negative); SARS COV2 PCR INHOUSE NEGATIVE (Negative)
--- NOTE | 2023-04-11 17:52 | ECG_ITS ---
Test Reason : CHEST PAIN Blood Pressure : / mmHG Vent. Rate : 079 BPM Atrial Rate : 079 BPM P-R Int : 148 ms QRS Dur : 106 ms QT Int : 404 ms P-R-T Axes : 024 068 -14 degrees QTc Int : 463 ms Normal sinus rhythm T wave abnormality, consider inferior ischemia Abnormal ECG When compared with ECG of 01-NOV-2022 07:44, No significant change was found Referred By: Lulú Garcia Electronically Signed By:JESUS ALBERTO ALCARAZ MD
--- NOTE | 2023-04-11 18:13 | ED_ITS ---
HPI - General Adult General Chief complaint: Abdominal Pain Stated complaint: Upper Abd Pain Time Seen by Provider: 04/11/23 17:13 Source: patient and RN notes reviewed Mode of arrival: ambulatory Limitations: no limitations History of Present Illness HPI narrative: This is a 37-year-old female, with a history of GERD, hiatal hernia, and cyclical vomiting, who presents emergency department with complaints of profound nausea and vomiting x2 weeks. Patient states that she was diagnosed with cyclical vomiting last year. She states her symptoms have been well-controlled up until 2 weeks ago where she has been unable to eat or drink without immediately vomiting. She states that she has been seen at [facility] 3 times over the last 2 weeks and has only been given IV medications and was discharged. She was previously seeing GI at [facility] for her symptoms, she has had an endoscopy, as well as a swallow study but has not had any other additional testing performed. They are uncertain what is causing her to have the symptoms. She denies any alcohol or drug use. She does not smoke marijuana. She does report that when she wakes up in the morning she feels like she has a profound amount of acid reflux in her mouth which causes her to start vomiting again. She denies any urinary frequency, urgency, hematuria or dysuria. She also endorses slight constipation with associated loose stool. No other complaints or concerns at this time. MD complaint: Nausea, vomiting Onset (ago): week(s) Quality: aching Pain Consistency: constant Relieving factors: none Exacerbating factors: none Associated symptoms: denies other symptoms Treatments prior to arrival: none Related Data Home Medications Medication Instructions Recorded Confirmed amlodipine 10 mg tablet 10 mg PO DAILY 09/24/22 09/24/22 hydrochlorothiazide 50 mg tablet 50 mg PO DAILY 09/24/22 09/24/22 levothyroxine 150 mcg tablet 150 mcg PO DAILY@0600 09/24/22 09/24/22 lisinopril 40 mg tablet 40 mg PO DAILY 09/24/22 09/24/22 ondansetron 4 mg disintegrating 4 mg PO Q8H PRN nausea/vomiting 09/24/22 09/24/22 tablet pantoprazole 40 mg tablet,delayed 40 mg PO DAILY@0630 PRN Acid Reflux 09/24/22 09/24/22 release Previous Rx's Medication Instructions Recorded haloperidol 5 mg tablet 2.5 mg (1/2 x 5 mg) PO TID #20 tabs 09/26/22 cholecalciferol (vitamin D3) 25 25 mcg PO DAILY #30 caps 11/01/22 mcg (1,000 unit) capsule lorazepam 1 mg tablet (Ativan) 1 mg PO BID PRN anxiety/sleep #20 11/05/22 tabs dicyclomine 20 mg tablet 20 mg PO QID #30 tabs 11/07/22 pantoprazole 40 mg tablet,delayed 40 mg PO DAILY #30 tabs 11/07/22 release sobltazrt-hnlfkfmip-wyphbuat-scop 1 tab PO BID #20 tabs 11/07/22 16.2 mg-0.1037 mg-0.0194 mg tablet () trimethobenzamide 300 mg capsule 300 mg PO Q6H PRN nausea and 11/07/22 vomiting #10 caps vitamin A palmitate 3,000 mcg 6,000 mcg (2 x 3,000 mcg (10,000 11/08/22 (10,000 unit) capsule unit)) PO DAILY #30 caps ondansetron 4 mg disintegrating 4 mg PO Q8H 4 days #12 tabs 02/04/23 tablet promethazine 25 mg tablet 25 mg PO TID PRN nausea and 02/04/23 vomiting #14 tabs Magic Mouthwash 5 ml PO Q6H PRN heartburn #240 mL 04/11/23 Diphen/Lido/Antacid 1:1:1 240 mL suspension Allergies Allergy/AdvReac Type Severity Reaction Status Date / Time No Known Allergies Allergy Verified 04/11/23 10:35 Review of Systems 2 Review of Systems: Yes all other systems are reviewed and are negative Constitutional: Constitutional: Reports as per [facility] Past Medical History Attestation statement: The following information was validated with the patient. Medical History HTN (hypertension), benign Hepatic steatosis Ovarian cyst Anxiety Morbid obesity GERD (gastroesophageal reflux disease) Hypertension Hypothyroidism Social History Social History Alcohol intake: never Patient Tobacco Use Status: Never used Tobacco Smoked in Last 30 Days: No Use of substances other than those prescribed or required for medical reasons: No Advance Directives: No Advance Directives Information Provided: No service: No Physical Exam ED Vital Signs: Vital Signs - 24 hr 04/11/23 10:35 04/11/23 18:30 Temperature 98 F 98.6 F Pulse Rate 86 86 Respiratory Rate 17 18 Blood Pressure 144/81 H 116/47 L Pulse Oximetry 99 98 Oxygen Delivery Method Room Air Room Air BMI result Body Mass Index 54.7 Const General: cooperative, comfortable and no acute distress Orientation/consciousness: patient oriented x3 Limitations: no limitations HENMT Head: Yes normal to inspection, Yes normocephalic and Yes atraumatic Ears: hearing grossly normal bilaterally General nose exam: Normal external nose present Face and sinus: Yes normal facial exam Mouth: Normal oral and palatal mucosa present, oropharynx normal and moist mucous membranes Throat: Yes posterior oropharynx normal Eyes General: appearance normal, both eyes and all related structures Eyelids: Yes eyelids normal Conjunctivae: conjunctivae normal Sclerae: sclerae normal Pupils: Equal, round and reactive pupils present EOM: EOMs intact bilaterally Neck Neck: Yes normal visual inspection, Yes full ROM and Yes no lymphadenopathy Lymphatic: no lymphadenopathy noted Chest Chest palpation & inspection: normal inspection of the chest Resp Effort & Inspection: normal respiratory effort and able to speak in complete sentences Auscultation: clear to auscultation bilaterally, no crackles, no rales, no rhonchi and no wheezes Cardio Rate: regular rate Rhythm: regular rhythm Heart sounds: S1 normal heart sound present and S2 normal heart sound present GI Other: Abdomen is soft, nontender, nondistended Inspection: Yes normal to inspection Skin General skin exam: no rashes or lesions noted Trauma: no lacerations or abrasions Wounds: no wounds Neuro General: patient oriented x3 and moves all extremities Cranial nerves: Yes Equal, round and reactive pupils present Extrem General: Yes normal to inspection Right upper extremity: normal to inspection Left upper extremity: normal to inspection Right lower extremity: normal to inspection Left lower extremity: normal to inspection Course Reevaluation(s) Reevaluation #1: Sign-out given to my colleague, Jesse Mandujano PA-C pending CT abdomen and pelvis, and re-evaluation. Reevaluation #2: Discussed at length the patient's results with her. She has no acute findings in labs and imaging evaluation. She reports feeling a burning sensation her throat and abdomen. She was given a GI cocktail with good improvement in her symptoms. Plan for p.o. trial and discharge if successful Time: 22:10 Medications Administered Discontinued Medications Generic Name Dose Route Start Last Admin Trade Name Imani PRN Reason Stop Dose Admin Al Hydroxide/Mg Hydroxide 30 ml 04/11/23 21:11 04/11/23 21:26 Magnesium Hydrox/Alum Hydrox 30 Ml Oral.Susp PO 04/11/23 21:12 30 ml ONCE ONE Administration Sodium Chloride 1,000 mls @ 999 mls/hr 04/11/23 17:52 04/11/23 20:27 Ns IV 04/11/23 18:52 Infused .Q1H1M ONE Infusion Iohexol 100 ml 04/11/23 20:02 04/11/23 20:03 Iohexol 350 Mg/Ml 100 Ml Infus..Btl IV 04/11/23 20:03 100 ml ONCE ONE Administration Lidocaine HCl 15 ml 04/11/23 21:11 04/11/23 21:27 Lidocaine Hcl Viscous 2 % 15 Ml Solution MUCOUS MEM 04/11/23 21:12 15 ml ONCE ONE Administration Ondansetron HCl 4 mg 04/11/23 18:12 04/11/23 18:44 Ondansetron Hcl 4 Mg/2 Ml Vial IVPUSH 04/11/23 18:13 4 mg ONCE ONE Administration Pantoprazole Sodium 40 mg 04/11/23 19:07 04/11/23 19:32 Pantoprazole Sodium 40 Mg/10 Ml Vial IVPUSH 04/11/23 19:08 40 mg ONCE ONE Administration Medical Decision Making Medical Decision Making MDM Narrative: This is a 37-year-old female, with a history of GERD, Mandie's thyroiditis, hypertension, who presents emergency department for evaluation of cyclical vomiting and profound nausea x 2 weeks. Patient has been seen at [facility] 3 times in the last 2 weeks. She states that she is unable to eat or drink anything without vomiting. Arrival, vital signs are within normal limits. She is nontoxic appearing. Abdomen is soft and nontender. Differential diagnoses include cyclical vomiting, electrolyte derangement, gastritis, gastroenteritis, hiatal hernia, bowel obstruction. Less likely diverticulosis, diverticulitis, toxic megacolon. Plan: Labs, EKG, viral swabs, IV fluids, IV Zofran, CT abd and pelvis. Differential Diagnosis Differential Diagnoses: The differential diagnosis associated with the presentation includes See above Admission/Observation Consideration of admission/observation: Escalation of care including admission/observation considered Patient would have been admitted to the hospital had her work up had any findings where hospital admission was appropriate and her clinical presentation warranted hospital admission. Lab Data MDM Lab Attestation statement: I reviewed the patient's lab results. Slight leukocytosis at 11.1k, likely reactive secondary to vomiting. Slight hyponatremia at 134, all other electrolytes within normal limits. She does have elevated liver transaminases AST ALT 62/131, similar to previous 04/11/23 10:50 04/11/23 10:50 Labs: Lab Results 04/11/23 04/11/23 04/11/23 Range/Units 10:50 18:10 19:35 WBC 11.1 H (4.8-10.8) X10*3/uL RBC 4.61 (4.20-5.50) X10*6/uL Hgb 13.3 (12.0-16.0) g/dl Hct 38.7 (37.0-47.0) % MCV 83.9 (80.0-98.0) fL MCH 28.9 (27.0-33.0) pg MCHC 34.4 (31.0-35.0) g/dl RDW 14.1 (11.0-16.0) % Plt Count 226 D (160-400) X10*3/uL MPV 10.4 (9.4-12.3) fL Immature Gran % (Auto) 0.6 H (0.0-0.4) % Neut % (Auto) 73.3 H (45-73) % Lymph % (Auto) 13.5 L (20-40) % [place] % (Auto) 9.9 (2-11) % Eos % (Auto) 2.2 (0-4) % Baso % (Auto) 0.5 (0-2) % Lymph # (Auto) 1.5 (1.2-4.9) X10*3/uL [place] # (Auto) 1.1 (0.1-1.2) X10*3/uL Eos # (Auto) 0.2 (0.0-0.4) X10*3/uL Baso # (Auto) 0.1 (0.0-0.2) X10*3/uL Abs Immat Gran (auto) 0.07 H (0.00-0.03) X10*3/uL Absolute Neuts (auto) 8.1 (2.0-8.3) x10*3/uL Absolute Nucleated RBC 0.000 (0.0-0.012) X10*3/uL Nucleated RBC % (auto) 0.0 (0.0-0.2) /100WBC Sodium 134 L (135-145) mmol/L Potassium 3.5 (3.3-5.1) mmol/L Chloride 100 (96-108) mmol/L Carbon Dioxide 25 (22-29) mmol/L Anion Gap 13 (12-20) BUN 6 L (9-16) mg/dL Creatinine 0.81 (0.5-1.4) mg/dL Estim Creat Clear Calc 152.6 Estimated GFR > 60 Random Glucose 117 H (60-115) mg/dL Calcium 9.6 (8.4-10.2) mg/dL Total Bilirubin 0.6 (0.0-1.0) mg/dL Direct Bilirubin 0.3 (0.0-0.5) mg/dL AST 62 H (5-31) U/L ALT 131 H (0-31) U/L Alkaline Phosphatase 114 (39-117) U/L Troponin I High Sens < 2.7 (<3.5-17.0) ng/L Total Protein 8.0 (6.5-8.0) g/dL Albumin 4.3 (3.5-5.0) g/dL Lipase 6 L (8-78) U/L Urine Color Yellow Urine Appearance Clear Urine pH 7.0 (5.0-9.0) Ur Specific [place] 1.015 (1.005-1.025) Urine Protein Negative (Neg-Trace) mg/dL Urine Glucose (UA) Negative (Negative) mg/dL Urine Ketones Negative (Negative) mg/dL Urine Blood Negative (Negative) Urine Nitrite Negative (Negative) Ur Leukocyte Esterase Trace H (Negative) Urine RBC 0-2 (0-2) /HPF Urine WBC 0-5 (0-5) /HPF Ur Squamous Epith Cells 0-2 (0-2) /HPF Urine Bacteria None Seen (None Seen) Hyaline Casts 0-2 (0-2) /LPF Urine Test NEGATIVE (NEGATIVE) Influenza Type A (PCR) NEGATIVE (Negative) Influenza Type B (PCR) NEGATIVE (Negative) RSV RNA Qual (PCR) NEGATIVE (Negative) SARS-CoV-2 RNA (RT-PCR) NEGATIVE (Negative) Independent Interpretation I performed an independent interpretation of an: EKG Radiology Impression Discussion of test interpretation with radiology: I have reviewed the radiologist's reading. Discharge Plan Discharge Clinical Impression: Cyclical vomiting, Transaminitis Patient Disposition: Home, Self-Care Additional Instructions: You were seen in the emergency department due to profound nausea and vomiting. Your labs reveal elevated liver enzymes which you have had in the past. You tested negative for COVID, flu, and RSV. Your CT scan reveals no significant abnormalities to explain your symptoms You may try magic mouthwash swish and swallow to help with your symptoms Follow-up with your primary care physician as well as your GI specialist. Continue taking all prescribed medications as directed. Stick to a bland diet, avoid spicy, fried, or dairy containing products. If any new or worsening symptoms occur including but not limited to fevers, chills, abdominal pain, worsening nausea, vomiting, please return for re- evaluation. Prescriptions: New Magic Mouthwash Diphen/Lido/Antacid 1:1:1 240 mL suspension 5 ml PO Q6H PRN (Reason: heartburn) Qty: 240 0RF Rx Instructions: Lidocaine Viscous 2 % 80mL; diphenhydramine 12.5 mg/5 mL 80mL; aluminum-mag hydrox-simeth [id number]/5mL 80mL No Action cholecalciferol (vitamin D3) 25 mcg (1,000 unit) capsule 25 mcg PO DAILY Qty: 30 5RF vitamin A palmitate 3,000 mcg (10,000 unit) capsule 6,000 mcg PO DAILY Qty: 30 0RF hydrochlorothiazide 50 mg tablet 50 mg PO DAILY amlodipine 10 mg tablet 10 mg PO DAILY pantoprazole 40 mg tablet,delayed release (DR/EC) 40 mg PO DAILY@0630 PRN (Reason: Acid Reflux) levothyroxine 150 mcg tablet 150 mcg PO DAILY@0600 lisinopril 40 mg tablet 40 mg PO DAILY ondansetron 4 mg tablet,disintegrating 4 mg PO Q8H PRN (Reason: nausea/vomiting) haloperidol 5 mg tablet 2.5 mg PO TID Qty: 20 0RF dicyclomine 20 mg tablet 20 mg PO QID Qty: 30 0RF Rx Instructions: 30 min before eating, 30 min before bed ctvebcjnw-yuzyfr-nqbhzbgf-scop [] 16.2-0.1037 -0.0194 mg tablet 1 tab PO BID Qty: 20 0RF trimethobenzamide 300 mg capsule 300 mg PO Q6H PRN (Reason: nausea and vomiting) Qty: 10 0RF pantoprazole 40 mg tablet,delayed release (DR/EC) 40 mg PO DAILY Qty: 30 0RF lorazepam [Ativan] 1 mg tablet 1 mg PO BID PRN (Reason: anxiety/sleep) Qty: 20 0RF ondansetron 4 mg tablet,disintegrating 4 mg PO Q8H 4 Days Qty: 12 0RF promethazine 25 mg tablet 25 mg PO TID PRN (Reason: nausea and vomiting) Qty: 14 0RF Referrals: [facility] [place] [facility] [Provider Group] Ronit Weir, CHUCKING LATHE OPERATOR-BC [Nurse Practitioner] - (Persistent vomiting. Hiatal hernia. ? endoscopy)
[2023-04-11 18:30] VITALS: BP 116/47; PULSE 86; RESP 18; TEMP 37; O2SAT 98
--- NOTE | 2023-04-11 18:32 | PC.NURSE ---
pt describes uppr abd pressure and waves of nausea. better now than other times. had been vomiting and dry heaving in wr. denies pot use. skin pwd. moist mm.
[2023-04-11] MEDS: ondansetron HCL 4 MG/2 ML VIAL IVPUSH (18:44)
[2023-04-11 18:45] LABS: Troponin-I High Sensitivity < 2.7 ng/L (<3.5-17.0)
[2023-04-11] MEDS: 0.9 % Sodium Chloride 1,000 ML 999 ML IV (18:45)
[2023-04-11] MEDS: Pantoprazole Sodium 40 MG/10 ML VIAL IVPUSH (19:32)
[2023-04-11 19:45] LABS: Appearance Urine Clear; Color Urine Yellow; Glucose Urine UA Negative (Negative); Leukocyte Esterase Urine Trace (Negative); Nitrite Urine Negative (Negative); Specific Gravity - Urine 1.015 (1.005-1.025); UMIC TRIGGER UACC YES; Urine Blood Negative (Negative); Urine Ketones Negative (Negative); Urine Protein Negative (Neg-Trace)
[2023-04-11 19:46] LABS: UPreg QC Valid YES; Urine Pregnancy NEGATIVE (NEGATIVE)
[2023-04-11 19:48] LABS: Bacteria Urine None Seen (None Seen); Hyaline Casts Urine 0-2 /LPF (0-2); RBC Urine 0-2 /HPF (0-2); Squamous Epithelial Cell Urine 0-2 /HPF (0-2); WBC Urine 0-5 /HPF (0-5)
[2023-04-11] MEDS: iohexoL 350 MG/ML 100 ML INFUS..BTL IV (20:03)
[2023-04-11] MEDS: Magnesium Hydrox/Alum Hydrox 30 ML ORAL.SUSP PO (21:26)
[2023-04-11] MEDS: Lidocaine HCl Viscous 2 % 15 ML SOLUTION MUCOUS MEM (21:27)
--- NOTE | 2023-04-11 22:26 | PC.NURSE ---
tolerating PO well. Provider aware.'
[2023-04-11 22:49] VITALS: BP 134/70; PULSE 82; RESP 18; TEMP 36.7; O2SAT 98
== END 2023-04-11 22:55 | disposition home or self-care (01) ==
PROVIDERS: Physician Assistant Medical; Emergency Provider Internal Medicine; PCP Pediatrics
DX: R11.15 Cyclical vomiting syndrome unrelated to migraine (principal); R74.01 Elevation of levels of liver transaminase levels; R11.2 Nausea with vomiting, unspecified; I10 Essential (primary) hypertension; Z11.52 Encounter for screening for COVID-19; Z20.828 Contact with and (suspected) exposure to other viral communicable diseases
CPT/HCPCS: 0241U; 36415; 74177; 80048; 80076; 81001; 81025; 83690; 84484; 85025; 93005; 96361; 96374; 96375; 99284; 99285; C9113; J2405; Q9967

== ENCOUNTER → 2023-04-11 17:52 | Outpatient (BNV) | payer BC, SELFPAY | PROVIDERS: Emergency Provider Internal Medicine; PCP Pediatrics; Visit Provider Internal Medicine Cardiovascular Disease | DX: R94.31 Abnormal electrocardiogram [ECG] [EKG] (principal) | CPT/HCPCS: 93010 ==

== ENCOUNTER 2024-01-09 08:21 | Emergency (ER) | payer BC, SELFPAY ==
[2024-01-09 08:23] VITALS: BP 145/92; PULSE 96; RESP 18; TEMP 36.4; O2SAT 96; BMI 54.7
[2024-01-09 08:50] LABS: MANUAL DIFF FLAG NO
--- NOTE | 2024-01-09 08:52 | PC.NURSE ---
pt is alert and oriented, skin pwd, respirations even and unlabored, pt reports for the last 2 years having these vomiting episodes that last anywhere from 4-7 days, this episode according to the pt is pretty bad-pt reporting to be in the hospital 4 times already, pt is currently only dry heaving/having poor po intake do the sever nausea took zofran around 0730 and compazine suppository prior to the zofran and no improvement, seeing pcp and GI specialists and they cant seem to figure out what is causing this vomiting. pt denies abd pain, bowel sounds in all 4 quadrants and abd soft and non-tender
[2024-01-09 08:55] LABS: Basophils Absolute Auto 0.1 X10*3/uL (0.0-0.2); Basophils Percent Auto 0.6 % (0-2); Eosinophils Absolute Auto 0.2 X10*3/uL (0.0-0.4); Eosinophils Percent Auto 2.2 % (0-4); Hematocrit 37.1 % (37.0-47.0); Hemoglobin 13.1 g/dl (12.0-16.0); Imm Gran Abs Auto 0.07 X10*3/uL (0.00-0.03); Imm Gran Pct Auto 0.7 % (0.0-0.4); Lymphocytes Absolute Auto 1.3 X10*3/uL (1.2-4.9); Lymphocytes Percent Auto 13.9 % (20-40); Mean Corpuscular HGB Conc 35.3 g/dl (31.0-35.0); Mean Corpuscular Hemoglobin 29.2 pg (27.0-33.0); Mean Corpuscular Volume 82.6 fL (80.0-98.0); Mean Platelet Volume 10.4 fL (9.4-12.3); Monocytes Absolute Auto 0.7 X10*3/uL (0.1-1.2); Monocytes Percent Auto 7.7 % (2-11); Neutrophils Absolute Auto 7.1 x10*3/uL (2.0-8.3); Neutrophils Percent Auto 74.9 % (45-73); Platelet Count 233 X10*3/uL (160-400); Red Blood Count 4.49 X10*6/uL (4.20-5.50); Red Cell Distribution Width 13.6 % (11.0-16.0); White Blood Count 9.4 X10*3/uL (4.8-10.8)
--- NOTE | 2024-01-09 08:56 | ED_ITS ---
HPI - Nausea/Vomiting/Diarrhea General Chief complaint: Nausea/Vomiting/Diarrhea Stated complaint: vomiting Time Seen by Provider: 01/09/24 08:45 Source: patient, RN notes reviewed and old records reviewed Mode of arrival: ambulatory Limitations: no limitations History of Present Illness ED Provider: Justin Davis PA-C HPI Narrative: 38 yo female with history of morbid obesity (BMI 54), cyclical vomiting syndrome of unclear etiology, hypothyroidism, HTN, GERD, anxiety, ovarian cysts who presents to the ER for evaluation of recurrent nausea and vomiting for the last 1 week. She has been to [facility] ER 3x this week requiring IV antiemetics. She states she has had an extensive workup with her GI providers at [facility] and is on amitrypiline for prophylaxis. She recently went 7 months without any episodes but this last month she has had recurrent N/V episodes. She is on Wegovy since August and has lost 40 lbs. Her initial symptoms of cyclical vomiting started 2 years ago. She states her providers think maybe the episodes are related to her menstrual cycle and they want her to have an IDU. LMP ended 3 days ago. She denies any associated abdominal pain, fever, chills, chest pain, sob, urinary symptoms. she is extremely tired and frustrated from vomiting all week. she denies any marijuana use. MD elicited complaint: nausea and vomiting Pertinent past history: cyclical vomiting Onset (ago): day(s) Description of vomiting: bilious Related Data Home Medications ?Medication ?Instructions ?Recorded ?Confirmed amlodipine 10 mg tablet 10 mg PO DAILY 09/24/22 09/24/22 hydrochlorothiazide 50 mg tablet 50 mg PO DAILY 09/24/22 09/24/22 levothyroxine 150 mcg tablet 150 mcg PO DAILY@0600 09/24/22 09/24/22 lisinopril 40 mg tablet 40 mg PO DAILY 09/24/22 09/24/22 ondansetron 4 mg disintegrating 4 mg PO Q8H PRN nausea/vomiting 09/24/22 09/24/22 tablet pantoprazole 40 mg tablet,delayed 40 mg PO DAILY@0630 PRN Acid Reflux 09/24/22 09/24/22 release Previous Rx's ?Medication ?Instructions ?Recorded haloperidol 5 mg tablet 2.5 mg (1/2 x 5 mg) PO TID #20 tabs 09/26/22 cholecalciferol (vitamin D3) 25 25 mcg PO DAILY #30 caps 11/01/22 mcg (1,000 unit) capsule lorazepam 1 mg tablet (Ativan) 1 mg PO BID PRN anxiety/sleep #20 11/05/22 tabs dicyclomine 20 mg tablet 20 mg PO QID #30 tabs 11/07/22 pantoprazole 40 mg tablet,delayed 40 mg PO DAILY #30 tabs 11/07/22 release [id number]-iajnenabs-nqbcdbyz-scop 1 tab PO BID #20 tabs 11/07/22 16.2 mg-0.1037 mg-0.0194 mg tablet () trimethobenzamide 300 mg capsule 300 mg PO Q6H PRN nausea and 11/07/22 vomiting #10 caps vitamin A palmitate 3,000 mcg 6,000 mcg (2 x 3,000 mcg (10,000 11/08/22 (10,000 unit) capsule unit)) PO DAILY #30 caps ondansetron 4 mg disintegrating 4 mg PO Q8H 4 days #12 tabs 02/04/23 tablet promethazine 25 mg tablet 25 mg PO TID PRN nausea and 02/04/23 vomiting #14 tabs Magic Mouthwash 5 ml PO Q6H PRN heartburn #240 mL 04/11/23 Diphen/Lido/Antacid 1:1:1 240 mL suspension diphenhydramine HCl 12.5 mg/5 mL 50 mg (20 mL) PO Q6H PRN nausea 01/09/24 oral liquid (Benadryl Allergy) and vomiting #473 mL haloperidol lactate 2 mg/mL oral 2 mg PO Q6H PRN nausea and 01/09/24 concentrate vomiting #120 mL Allergies Allergy/AdvReac Type Severity Reaction Status Date / Time No Known Allergies Allergy Verified 01/09/24 08:26 [facility] Past Medical History Medical History HTN (hypertension), benign Hepatic steatosis Ovarian cyst Anxiety Morbid obesity GERD (gastroesophageal reflux disease) Hypertension Hypothyroidism Social History Social History Alcohol intake: never Patient Tobacco Use Status: Never used Tobacco Smoked in Last 30 Days: No Use of substances other than those prescribed or required for medical reasons: No Advance Directives: No Advance Directives Information Provided: Yes Do you have a plan to hurt others: No Plan service: No Physical Exam 2 Vital Signs: Vital Signs: Last Vital Signs Temp 98.4 F 01/09/24 14:53 Pulse 92 01/09/24 14:53 Resp 16 01/09/24 14:53 BP 150/81 H 01/09/24 14:53 Pulse Ox 98 01/09/24 14:53 O2 Del Method Room Air 01/09/24 14:53 BMI result Body Mass Index 54.7 Appearance: Alert. Oriented X3. Appears uncomfortable Head: normocephalic, atraumatic. Eyes: Pupils equal, round and reactive to light. ENT: Pharynx normal. No tonsillar swelling or exudate. Neck: Normal inspection. Neck supple. CVS: Normal heart rate and rhythm. Pulses normal. Respiratory: No respiratory distress. Breath sounds normal. Abdomen: Obese Soft and nontender. +BS x4 Skin: Skin warm and dry. Normal skin color. Normal skin turgor. No rashes. Extremities: No lower extremity edema. No joint swelling. Neuro/psych: Oriented X 3. No motor deficit. No sensory deficit. CN II-XII intact. Normal speech and cognition. Medications Administered Discontinued Medications Generic Name Dose Route Start Last Admin Trade Name Imani PRN Reason Stop Dose Admin Al Hydroxide/Mg Hydroxide 30 ml 01/09/24 11:52 01/09/24 12:00 Magnesium Hydrox/Alum Hydrox 30 Ml Oral.Susp PO 01/09/24 11:53 30 ml ONCE ONE Administration Belladonna Alkaloids/Phenobarbital 10 ml 01/09/24 11:52 01/09/24 12:00 Phenobarb/Hyoscy/Atropine/Scop 10 Ml Elixir PO 01/09/24 11:53 10 ml ONCE ONE Administration Diphenhydramine HCl 50 mg 01/09/24 09:13 01/09/24 09:25 Diphenhydramine Hcl 50 Mg/Ml Vial IVPUSH 01/09/24 09:14 50 mg ONCE ONE Administration Diphenhydramine HCl 25 mg 01/09/24 14:13 01/09/24 14:39 Diphenhydramine Hcl 12.5 Mg/5 Ml Liquid PO 01/09/24 14:14 25 mg ONCE ONE Administration Haloperidol Lactate 2.5 mg 01/09/24 09:17 01/09/24 09:25 Haloperidol Lactate 5 Mg/Ml Vial IVPUSH 01/09/24 09:18 2.5 mg STAT STA Administration Haloperidol Lactate 2.5 mg 01/09/24 14:13 01/09/24 14:39 Haloperidol Lactate Oral Conc 10 Mg/5 Ml Oral.Conc PO 01/09/24 14:14 2.5 mg ONCE ONE Administration Lidocaine HCl 15 ml 01/09/24 11:52 01/09/24 12:00 Lidocaine Hcl Viscous 2 % 15 Ml Solution MUCOUS MEM 01/09/24 11:53 15 ml ONCE ONE Administration Medical Decision Making Medical Decision Making MDM Narrative: 38 yo female with history of morbid obesity (BMI 54), cyclical vomiting syndrome of unclear etiology, hypothyroidism, HTN, GERD, anxiety, ovarian cysts who presents to the ER for evaluation of recurrent nausea and vomiting for the last 1 week. Seen at [facility] x3 this week, follows w/ GI there. No abdominal pain. IV established and she was given IV haldol and benadryl with significant improvement in her symptoms. she slept well and has not had any episodes of vomiting here. GI cocktail ordered for some ongoing nausea. lab workup is reassuring with any evidence of dehydration, no major metabolic derangement overall patient feeling much better she has responded well to haldol. would like to retry haldol liquid at home and f/u with her GI provider at [facility] comfortable w/ discharge and close outpatient follow up Differential Diagnosis Differential Diagnoses: The differential diagnosis associated with the presentation includes cyclical vomiting syndrome, medication adverse reaction, dehydration, LACY, gastroparesis Admission/Observation Consideration of admission/observation: Escalation of care including admission/observation considered Lab Data [facility] Lab Attestation statement: I reviewed the patient's lab results. normal H&H, no major metabolic derangement or electrolyte abnormality to suggest dehydration 01/09/24 08:47 01/09/24 08:47 Labs: Lab Results 01/09/24 01/09/24 Range/Units 08:47 09:02 WBC 9.4 (4.8-10.8) X10*3/uL RBC 4.49 (4.20-5.50) X10*6/uL Hgb 13.1 (12.0-16.0) g/dl Hct 37.1 (37.0-47.0) % MCV 82.6 (80.0-98.0) fL MCH 29.2 (27.0-33.0) pg MCHC 35.3 H (31.0-35.0) g/dl RDW 13.6 (11.0-16.0) % Plt Count 233 (160-400) X10*3/uL MPV 10.4 (9.4-12.3) fL Immature Gran % (Auto) 0.7 H (0.0-0.4) % Neut % (Auto) 74.9 H (45-73) % Lymph % (Auto) 13.9 L (20-40) % [place] % (Auto) 7.7 (2-11) % Eos % (Auto) 2.2 (0-4) % Baso % (Auto) 0.6 (0-2) % Lymph # (Auto) 1.3 (1.2-4.9) X10*3/uL [place] # (Auto) 0.7 (0.1-1.2) X10*3/uL Eos # (Auto) 0.2 (0.0-0.4) X10*3/uL Baso # (Auto) 0.1 (0.0-0.2) X10*3/uL Abs Immat Gran (auto) 0.07 H (0.00-0.03) X10*3/uL Absolute Neuts (auto) 7.1 (2.0-8.3) x10*3/uL Absolute Nucleated RBC 0.000 (0.0-0.012) X10*3/uL Nucleated RBC % (auto) 0.0 (0.0-0.2) /100WBC Sodium 135 (135-145) mmol/L Potassium 3.8 (3.3-5.1) mmol/L Chloride 100 (96-108) mmol/L Carbon Dioxide 25 (22-29) mmol/L Anion Gap 14 (12-20) BUN 10 (9-16) mg/dL Creatinine 0.81 (0.5-1.4) mg/dL Estim Creat Clear Calc 151.0 Estimated GFR > 60 Random Glucose 108 (60-115) mg/dL Calcium 9.6 (8.4-10.2) mg/dL Total Bilirubin 0.5 (0.0-1.0) mg/dL AST 51 H (5-31) U/L ALT 111 H (0-31) U/L Alkaline Phosphatase 114 (39-117) U/L Total Protein 7.8 (6.5-8.0) g/dL Albumin 4.3 (3.5-5.0) g/dL Beta HCG, Quant < 2 mIU/mL Urine Color Yellow Urine Appearance Clear Urine pH 7.5 (5.0-9.0) Ur Specific [place] 1.025 (1.005-1.025) Urine Protein 30 (1+) H (Neg-Trace) mg/dL Urine Glucose (UA) Negative (Negative) mg/dL Urine Ketones Trace (Negative) mg/dL Urine Blood Negative (Negative) Urine Nitrite Negative (Negative) Ur Leukocyte Esterase Trace H (Negative) Urine RBC 0-2 (0-2) /HPF Urine WBC 0-5 (0-5) /HPF Ur Squamous Epith Cells 3-5 (0-2) /HPF Urine Bacteria None Seen (None Seen) Hyaline Casts 0-2 (0-2) /LPF Urine Test NEGATIVE (NEGATIVE) Urine Opiates Screen Not Detected (Not Detect) Ur Buprenorphine Scrn Not Detected (Not Detect) ng/mL Ur Oxycodone Screen Not Detected (Not Detect) ng/mL Urine Methadone Screen Not Detected (Not Detect) ng/mL Urine Fentanyl Screen Not Detected (Not Detect) Ur Barbiturates Screen Not Detected (Not Detect) Ur Phencyclidine Scrn Not Detected (Not Detect) Ur Amphetamines Screen Not Detected (Not Detect) U Benzodiazepines Scrn Not Detected (Not Detect) Urine Cocaine Screen Not Detected (Not Detect) U Marijuana (THC) Screen Not Detected (Not Detect) External Record Review External record reviewed: Outpatient record, Prior outpatient labs and Prior outpatient radiology Tests considered The following testing was considered but not selected: considered CT scan of the abdomen however low suspicion for obstruction or acute abdominal process Prescription Management I considered prescription management with: Other (antiemetic) Chronic Conditions Patient?s care impacted by: Other (obesity) Critical Care Time Critical Care Time Critical Care Time: No Discharge Plan Discharge Clinical Impression: Cyclical vomiting syndrome Patient Disposition: Home, Self-Care Instructions: Cyclic Vomiting Syndrome (ED) Additional Instructions: 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 Prescriptions: New haloperidol lactate 2 mg/mL concentrate 2 mg PO Q6H PRN (Reason: nausea and vomiting) Qty: 120 0RF diphenhydramine HCl [Benadryl Allergy] 12.5 mg/5 mL liquid 50 mg PO Q6H PRN (Reason: nausea and vomiting) Qty: 473 0RF No Action cholecalciferol (vitamin D3) 25 mcg (1,000 unit) capsule 25 mcg PO DAILY Qty: 30 5RF vitamin A palmitate 3,000 mcg (10,000 unit) capsule 6,000 mcg PO DAILY Qty: 30 0RF hydrochlorothiazide 50 mg tablet 50 mg PO DAILY amlodipine 10 mg tablet 10 mg PO DAILY pantoprazole 40 mg tablet,delayed release (DR/EC) 40 mg PO DAILY@0630 PRN (Reason: Acid Reflux) levothyroxine 150 mcg tablet 150 mcg PO DAILY@0600 lisinopril 40 mg tablet 40 mg PO DAILY ondansetron 4 mg tablet,disintegrating 4 mg PO Q8H PRN (Reason: nausea/vomiting) haloperidol 5 mg tablet 2.5 mg PO TID Qty: 20 0RF dicyclomine 20 mg tablet 20 mg PO QID Qty: 30 0RF Rx Instructions: 30 min before eating, 30 min before bed [id number]-scop [] 16.2-0.1037 -0.0194 mg tablet 1 tab PO BID Qty: 20 0RF trimethobenzamide 300 mg capsule 300 mg PO Q6H PRN (Reason: nausea and vomiting) Qty: 10 0RF pantoprazole 40 mg tablet,delayed release (DR/EC) 40 mg PO DAILY Qty: 30 0RF lorazepam [Ativan] 1 mg tablet 1 mg PO BID PRN (Reason: anxiety/sleep) Qty: 20 0RF ondansetron 4 mg tablet,disintegrating 4 mg PO Q8H 4 Days Qty: 12 0RF promethazine 25 mg tablet 25 mg PO TID PRN (Reason: nausea and vomiting) Qty: 14 0RF Magic Mouthwash Diphen/Lido/Antacid 1:1:1 240 mL suspension 5 ml PO Q6H PRN (Reason: heartburn) Qty: 240 0RF Rx Instructions: Lidocaine Viscous 2 % 80mL; diphenhydramine 12.5 mg/5 mL 80mL; aluminum-mag hydrox-simeth [id number]/5mL 80mL Interventions: ED Discharge Assessment Last Done: 01/09/24 14:53 Discharge Date/Time: 01/09/24 14:54 Print Language: Faroese
[2024-01-09 09:08] LABS: Appearance Urine Clear; Color Urine Yellow; Glucose Urine UA Negative (Negative); Leukocyte Esterase Urine Trace (Negative); Nitrite Urine Negative (Negative); PH 7.5 (5.0-9.0); Specific Gravity - Urine 1.025 (1.005-1.025); UMIC TRIGGER UACC YES; Urine Blood Negative (Negative); Urine Ketones Trace mg/dL (Negative); Urine Protein 30 (1+) mg/dL (Neg-Trace)
[2024-01-09 09:09] LABS: UPreg QC Valid YES; Urine Pregnancy NEGATIVE (NEGATIVE)
[2024-01-09 09:15] LABS: Alanine Aminotransferase 111 U/L (0-31); Albumin Level 4.3 g/dL (3.5-5.0); Alkaline Phosphatase 114 U/L (39-117); Anion Gap 14 (12-20); Aspartate Amino Transferase 51 U/L (5-31); Bilirubin Total 0.5 mg/dL (0.0-1.0); Blood Urea Nitrogen 10 mg/dL (9-16); Calcium 9.6 mg/dL (8.4-10.2); Carbon Dioxide 25 mmol/L (22-29); Chloride 100 mmol/L (96-108); Estimated Glomerular Filt Rate > 60; Glucose Random 108 mg/dL (60-115); HCG Quantitative < 2 mIU/mL; Potassium 3.8 mmol/L (3.3-5.1); Sodium 135 mmol/L (135-145); Total Protein 7.8 g/dL (6.5-8.0)
[2024-01-09 09:20] LABS: Amphetamine Screen Urine Not Detected (Not Detect); Barbiturates, Urine Not Detected (Not Detect); Benzodiazepines Screen Urine Not Detected (Not Detect); Buprenorphine Scr Not Detected (Not Detect); Cannabinoid Screen Urine Not Detected (Not Detect); Cocaine Screen Urine Not Detected (Not Detect); Fentanyl, urine Not Detected (Not Detect); Methadone Screen, Urine Not Detected (Not Detect); Opiate Screen Urine Not Detected (Not Detect); Oxycodone Screen Urine Not Detected (Not Detect); Phencyclidine Screen Urine Not Detected (Not Detect)
[2024-01-09 09:22] LABS: Bacteria Urine None Seen (None Seen); Hyaline Casts Urine 0-2 /LPF (0-2); RBC Urine 0-2 /HPF (0-2); WBC Urine 0-5 /HPF (0-5)
[2024-01-09] MEDS: Haloperidol Lactate 5 MG/ML VIAL 2.5 MG IVPUSH (09:25)
[2024-01-09] MEDS: diphenhydrAMINE HCL 50 MG/ML VIAL IVPUSH (09:25)
[2024-01-09 09:52] VITALS: BP 140/64; PULSE 85; RESP 16; TEMP 37.1; O2SAT 92
--- NOTE | 2024-01-09 10:00 | PC.NURSE ---
pt is currently resting comfortably, no drive heaving since the medication
--- NOTE | 2024-01-09 11:50 | PC.NURSE ---
pt woke up, reports feeling better, still is reporting some nausea and is requesting the GI cocktail, Michelle rodriguez
[2024-01-09 12:00] VITALS: BP 146/64; PULSE 98; RESP 20; TEMP 36.9; O2SAT 92
[2024-01-09] MEDS: PHENobarb/Hyoscy/Atropine/Scop 10 ML ELIXIR PO (12:00)
[2024-01-09] MEDS: Magnesium Hydrox/Alum Hydrox 30 ML ORAL.SUSP PO (12:00)
[2024-01-09] MEDS: Lidocaine HCl Viscous 2 % 15 ML SOLUTION MUCOUS MEM (12:00)
--- NOTE | 2024-01-09 13:01 | PC.NURSE ---
pt is sleeping, no vomiting while in the ED, respirations even and unlabored
[2024-01-09 14:00] VITALS: BP 150/81; PULSE 92; RESP 16; TEMP 36.9; O2SAT 98
[2024-01-09] MEDS: Haloperidol Lactate Oral Conc 10 MG/5 ML ORAL.CONC 2.5 MG PO (14:39)
[2024-01-09] MEDS: diphenhydrAMINE HCl 12.5 MG/5 ML LIQUID 25 MG PO (14:39)
[2024-01-09 14:53] VITALS: BP 150/81; PULSE 92; RESP 16; TEMP 36.9; O2SAT 98
== END 2024-01-09 14:54 | disposition home or self-care (01) ==
PROVIDERS: Physician Assistant; Emergency Provider Emergency Medicine; PCP Pediatrics
DX: R11.15 Cyclical vomiting syndrome unrelated to migraine (principal); I10 Essential (primary) hypertension; E66.01 Morbid (severe) obesity due to excess calories; Z68.43 Body mass index [BMI] 50.0-59.9, adult; Z79.899 Other long term (current) drug therapy
CPT/HCPCS: 36415; 80053; 80307; 81001; 81025; 84702; 85025; 96374; 99284; J1200; J1630